=== PATIENT | female | born 1985 | race Caucasian/White ===

== ENCOUNTER 2018-07-03 21:15 | Emergency (ER) | payer BC, OTHER ==
[~2018-07-03] VITALS: Ht 167.6 cm; Wt 113.4 kg
[~2018-07-03 21:15] MED LIST: BUTA1CAP39 PO; HYOS0.1217 PO; IBP800T PO; PNT40TEC PO
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
--- OUTSIDE RECORDS SUMMARY | 2018-07-03 21:21 | XMS REPORT ---
Author Author CAMILO SALDANA Organization [facility] Address [address] [place] [address] Care Team Providers Care Credit Advisor Name Role Phone CAMILO SALDANA Unavailable PROBLEMS Type Condition ICD9-CM Code AWM63-JV Code Onset Dates Condition Status SNOMED Code Problem Right carpal tunnel syndrome G56.01 Active 645495846281586 Problem Migraine without aura and without status migrainosus, not intractable G43.009 Active 236376602 Problem Morbid (severe) obesity due to excess calories E66.01 Active 862763560 Problem Carpal tunnel syndrome, bilateral G56.03 Active 25278116491487778 Problem Severe single current episode of major depressive disorder, 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 Active 92041437 ALLERGIES No Information ENCOUNTERS Encounter Location Date Diagnosis [facility] [address] [address]- [address] December, Right carpal tunnel syndrome G56.01 [place] [address] [address]- 9745 December, Severe single current episode of major depressive disorder, 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 ; Carpal tunnel syndrome, bilateral G56.03 and Elevated blood pressure reading R03.0 [place] [address] [address] [address]- [address]43 December, Carpal tunnel syndrome, bilateral G56.03 [facility] [address] [id number] December, Dental caries K02.9 [facility] [address] 6[address]- 9677 Nov, Carpal tunnel syndrome, bilateral G56.03 [facility] [address] [id number] Nov, Dental examination Z01.20 [place] [address] [place] [id number] [place] [address] 38689- 7899 Nov, Carpal tunnel syndrome, bilateral G56.03 ; Severe single current episode of major depressive disorder, 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 ; Morbid (severe) obesity due to excess calories E66.01 and Migraine without aura and without status migrainosus, not intractable G43.[address] [address]- [address] Oct, Nausea R11.0 ; Epigastric abdominal pain R10.13 and BMI 40.0 -44.9, adult Z68.[address] 9[address]70- 1368 Oct, [address] 37677- 9447 Aug, Severe single current episode of major depressive disorder, 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 ; BMI 40.0-44.9, adult Z68.41 ; Fatigue, unspecified type R53.83 ; Other viral agents as the cause of diseases classified elsewhere B97.89 and Acute upper respiratory infection, unspecified J06.9 [place] [id number] [place] [address] 32973- 6897 Jul, BMI 40.0-44.9, adult Z68.41 and Severe single current episode of major depressive disorder, 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 [place] [address] [place] [id number] [place] [address] 03295- 7419 Jun, Severe single current episode of major depressive disorder, 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 [place] [address] [place] [id number] [place] [address] 99899- 4295 May, Severe single current episode of major depressive disorder, 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 and Cough R05 [place] [address] [place] [id number] [place] [address] 98760- 3308 Apr, Severe single current episode of major depressive disorder, 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 [place] [address] [place] [id number] [place] [address] 90609- 4423 Mar, Severe single current episode of major depressive disorder, 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 [place] [address] [place] [id number] [place] [address] 83104- 8193 Feb, Encounter for routine adult health examination with abnormal findings Z00.01 ; Morbid (severe) obesity due to excess calories E66.01 and Exposure to hepatitis C Z20.5 [place] [address] [address]- 4141 Feb, Encounter for routine adult health examination with abnormal findings Z00.01 ; Morbid (severe) obesity due to excess calories E66.01 ; Exposure to hepatitis C Z20.5 and Moderate episode of recurrent major depressive disorder F33.1 [place] [address] 28680- 6152 Jan, Acute seasonal allergic rhinitis due to pollen J30.1 [place] [address] 24183- 3492 Sep, Acute suppurative otitis media of right ear without spontaneous rupture of tympanic membrane, recurrence not specified H66.001 and Acute pain of right shoulder M25.511 [facility] [address] [address] -[address]39 Jul, Vaginal discharge N89.8 and Vaginal candidiasis B37.3 [place] [address] 72241- 8233 May, Eustachian tube dysfunction, left H69.[address] 26164- 3730 09 Apr, 2016 Bronchitis J40 and Tobacco abuse counseling Z71.6 [place] [address] [address]27- 0404 Oct, URI (upper respiratory infection) J06.9 ; HTN (hypertension ) I10 and Obesity E66.9 [facility] [address] [address] Oct, Pharyngitis J02.9 and Sore throat J02.9 [facility] [address] [place] [address] 64906- 7337 May, Cough due to bronchospasm J98.01 [facility] [address] [place] [id number] [place] [address]37- 1975 May, Pneumonia J18.9 and Elevated blood pressure (not hypertension) R03.0 [facility] [address] [place] [address] 60495- 7562 Nov, [facility] [address] [place] [id number] [place] [address] 70057- 7860 Nov, [facility] [address] [place] [id number] [place] [address] 71056- 6906 Sep, [facility] [address] [place] [id number] [place] [address] 17907- 0339 Sep, [facility] [address] [place] [address] 49397- 3117 Sep, [facility] [address] [place] [address] 74244- 0411 Sep, [facility] [address] [address]- 7391 Aug, [facility] [address] [address]- 6508 Aug, [facility] [address] [place] [address] 93535- 4884 Aug, [facility] [address] [place] [address] 90074- 1474 Aug, [facility] [address] [address]- 2282 Aug, [facility] [address] [facility] [id number] [place] [address]- 6414 Aug, [facility] [address] [id number] [place] [address]- 1316 Aug, [facility] [place] [facility] [address] [id number] [place] [address]- 3406 Aug, [facility] [place] [facility] [address] [id number] [place] [address]- 4719 Aug, [facility] [place] [facility] [address] [id number] [place] [address]- 9129 Aug, [facility] [place] [facility] [address] [id number] [place] [address] Jul, [facility] [place] [facility] [address] [id number] [place] [address]- 0912 Jul, [facility] [place] [facility] [address] [id number] [place] [address]- 2759 Jul, [facility] [address] [id number] [place] [address]- 3007 Jul, [facility] [place] [facility] [address] [id number] [place] [address]- 5817 Jul, [facility] [place] [facility] [address] [id number] [place] [address]- 1146 Jul, [facility] [place] [facility] [address] [id number] [place] [address]- 9868 Jul, [facility] [place] [facility] [address] [id number] [place] [address]- 2601 Jul, [facility] [place] [facility] [address] [id number] [place] [address]8 Jul, [facility] [place] [facility] [address] [id number] [place] [address]- 4296 05 Jul, 2014 [facility] [place] [facility] [address] [id number] [place] [address]- 3067 Jul, [facility] [place] [facility] [address] [id number] [place] [address]- 1952 May, [facility] [place] [facility] [address] [id number] [place] [address]- 4574 May, [facility] [place] [facility] [address] [id number] [place] [address]- 2284 Apr, [facility] [place] [facility] [address] [id number] [place] [address]- 7703 Apr, [facility] [place] [facility] [address] [id number] [place] [address]- 4900 Jan, [facility] [place] [facility] [address] [id number] [place] [address]- 5641 Jan, [facility] [place] [facility] [address] [facility] [id number] [place] [address]- 9907 Oct, [facility] [place] [facility] [address] [id number] [address]- 9356 Oct, [facility] [place] [facility] [address] [id number] [place] [address]- 5956 Sep, [facility] [place] [facility] [address] [id number] [address]- 9502 Sep, [facility] [place] [facility] [address] [id number] [address]- 7704 Sep, [facility] [place] [facility] [address] [id number] [address]- 7312 Sep, [facility] [place] [facility] [address] [id number] [place] [address]- 0310 Sep, [facility] [place] [facility] [address] [id number] [address]321 Sep, [facility] [place] [facility] [address] [id number] [place] 5848 Aug, [facility] [place] [facility] [address] [address]- 2127 Aug, [facility] [address] [address]- 1044 Jun, [facility] [address] 6[address] Jun, [facility] [address] [place] [id number] [place] [address] 25994- 2991 Jun, [facility] [address] [place] [id number] [place] [address] 737455- 7502 Jun, [facility] [address] [place] [id number] [place] [address] 09465- 4152 Jun, [facility] [address] [place] [id number] [place] [address] 576046- 7192 Jun, [facility] [address] [place] [id number] [place] [address] 30486- 3939 May, [facility] [address] [address] May, [facility] [address] [place] [id number] [place] [address] 532424- 4895 Mar, [facility] [id number] [address] Mar, [facility] [id number] [address] December, [facility] [id number] [address] December, IMMUNIZATIONS No Known Immunizations SOCIAL HISTORY Never Assessed REASON FOR VISIT Bilat CTS-unable to afford surgery or EMG-interested in injection, Consult Camilo Salazar RT(R) PLAN OF CARE Activity Details Follow Up prn Reason: VITAL SIGNS MEDICATIONS Unknown Medications RESULTS No Results PROCEDURES Procedure Date Ordered Result Body Site DRAIN/INJECT, JOINT/BURSA December 31, 2017 DEPO MEDROL 40 MG/ML December 31, 2017 INSTRUCTIONS MEDICATIONS ADMINISTERED No Known Medications MEDICAL [...]
--- OUTSIDE RECORDS SUMMARY | 2018-07-03 21:21 | XMS REPORT ---
Author Author DANK YOST [facility] Address [address] [place] [address] Care Team Providers Care Insurance Loss Adjuster Name Role Phone DANK YOST Unavailable PROBLEMS Type Condition ICD9-CM Code CGP52-MC Code Onset Dates Condition Status SNOMED Code Problem Right carpal tunnel syndrome G56.01 Active 324334130758659 Problem Migraine without aura and without status migrainosus, not intractable G43.009 Active 045665144 Problem Morbid (severe) obesity due to excess calories E66.01 Active 771771101 Problem Carpal tunnel syndrome, bilateral G56.03 Active [id number] Problem Severe single current episode of major depressive disorder, 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 Active 55760898 ALLERGIES No Known Allergies ENCOUNTERS Encounter Location Date Diagnosis [place] [address] [address] May, Vesicular rash R23.8 ; Lower abdominal pain R10.30 and History of abdominal surgery Z98.890 [place] [address] [place] [id number] [place] [address] December, Right carpal tunnel syndrome G56.01 [place] [address] [address] December, Severe single current episode of major depressive disorder, 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 ; Carpal tunnel syndrome, bilateral G56.03 and Elevated blood pressure reading R03.0 [place] [address] [address] 15 Dec, 2017 Carpal tunnel syndrome, bilateral G56.03 [facility] [address] [place] [id number] [place] [address] [id number] 04 Dec, 2017 Dental caries K02.9 [place] [address] [place] [address] Nov, Carpal tunnel syndrome, bilateral G56.03 [facility] [id number] [place] [id number] 16 Nov, 2017 Dental examination Z01.20 [facility] [address] [place] [id number] [place] [address]- [address]67 09 Nov, 2017 Carpal tunnel syndrome, bilateral G56.03 ; Severe single current episode of major depressive disorder, 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 ; Morbid (severe) obesity due to excess calories E66.01 and Migraine without aura and without status migrainosus, not intractable G43.009 [place] [address] [place] [id number] [place] [address]- [address] Oct, Nausea R11.0 ; Epigastric abdominal pain R10.13 and BMI 40.0 -44.9, adult Z68.41 [place] [address] [place] [id number] [place] [address] Oct, [place] [address] [place] [id number] [place] [address] 47[address]- [address] Aug, Severe single current episode of major depressive disorder, 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 ; BMI 40.0-44.9, adult Z68.41 ; Fatigue, unspecified type R53.83 ; Other viral agents as the cause of diseases classified elsewhere B97.89 and Acute upper respiratory infection, unspecified J06.9 [place] [address] [place] [address] 47472- 5173 Jul, BMI 40.0-44.9, adult Z68.41 and Severe single current episode of major depressive disorder, 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 [place] [address] [place] [id number] [place] [address]- [address] Jun, Severe single current episode of major depressive disorder, 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 [place] [address] [place] [id number] [place] [address]- [address] May, Severe single current episode of major depressive disorder, 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 and Cough R05 [facility] [address] [address] Apr, Severe single current episode of major depressive disorder, 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 [facility] [address] [address] Mar, Severe single current episode of major depressive disorder, 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 [place] [address] [place] [id number] [place] [address]1560- [address]016 Feb, Encounter for routine adult health examination with abnormal findings Z00.01 ; Morbid (severe) obesity due to excess calories E66.01 and Exposure to hepatitis C Z20.5 [place] [address] [place] [id number] [place] [address]- [address] Feb, Encounter for routine adult health examination with abnormal findings Z00.01 ; Morbid (severe) obesity due to excess calories E66.01 ; Exposure to hepatitis C Z20.5 and Moderate episode of recurrent major depressive disorder F33.1 [place] [address] [place] [id number] [place] [address]- [address] Jan, Acute seasonal allergic rhinitis due to pollen J30.1 [facility] [address] [place] [id number] [place] [address]- [address] Sep, Acute suppurative otitis media of right ear without spontaneous rupture of tympanic membrane, recurrence not specified H66.001 and Acute pain of right shoulder M25.511 [facility] [address] [place] [address] Jul, Vaginal discharge N89.8 and Vaginal candidiasis B37.3 [facility] [address] [place] [id number] [place] [address] 79787- 5031 May, Eustachian tube dysfunction, left H69.82 [facility] [address] [place] [id number] [place] [address]01- 1605 09 Apr, 2016 Bronchitis J40 and Tobacco abuse counseling Z71.6 [facility] [address] [address] Oct, URI (upper respiratory infection) J06.9 ; HTN (hypertension ) I10 and Obesity E66.9 [facility] [address] [address] Oct, Pharyngitis J02.9 and Sore throat J02.9 [facility] [address] [place] [id number] [place] [address] 72040- 9816 May, Cough due to bronchospasm J98.01 [facility] [address] [place] [id number] [place] [address] 62385- 2959 May, Pneumonia J18.9 and Elevated blood pressure (not hypertension) R03.0 [facility] [address] [place] [id number] [place] [address] 88135- 6162 Nov, [facility] [address] [place] [id number] [place] [address] 15902- 3412 Nov, [facility] [address] [place] [id number] [place] [address] 16667- 5286 Sep, [facility] [address] [place] [id number] [place] [address] 07911- 6319 Sep, [facility] [id number] [place] [address] 50488- 3363 Sep, [facility] [address] [place] [id number] [place] [address] 25705- 4033 Sep, [facility] [address] [place] [id number] [place] [address] 63361- 6118 Aug, [facility] [address] [place] [id number] [place] [address] 44910- 5820 Aug, [facility] [address] [place] [id number] [place] [address] 61307- 3362 Aug, [facility] [address] [place] [address]- [address] Aug, [facility] [address] [id number] [place] [address]- 58[address] Aug, [facility] [place] [facility] [address] [id number] [place] [address]- 1632 Aug, [facility] [place] [facility] [address] [id number] [place] [address]- 3286 Aug, [facility] [place] [facility] [address] [id number] [place] [address]- 8299 Aug, [facility] [place] [facility] [address] [id number] [place] [address]- 8139 Aug, [facility] [place] [facility] [address] [id number] [place] [address]- 4792 Aug, [facility] [address] [id number] [place] [address]- 2242 Jul, [facility] [place] [facility] [address] [id number] [place] [address]- 287[address] 29 Jul, 2014 [facility] [place] [facility] [address] [id number] [place] [address]- 0700 Jul, [facility] [place] [facility] [address] [id number] [place] [address]- 2470 Jul, [facility] [place] [facility] [address] [id number] [place] [address]- 6928 16 Jul, 2014 [facility] [place] [facility] [address] [id number] [place] [address]- 3870 11 Jul, 2014 [facility] [place] [facility] [address] [id number] [place] [address]- 6968 Jul, [facility] [place] [facility] [address] [id number] [place] [address]- 8225 Jul, [facility] [place] [facility] [address] [id number] [place] [address]- 6016 Jul, [facility] [place] [facility] [address] [id number] [place] [address]- 7350 Jul, [facility] [place] [facility] [address] [id number] [place] [address]- 0030 Jul, [facility] [place] [facility] [address] [id number] [place] [address]- 2467 May, [facility] [place] [facility] [address] [id number] [place] [address]- 4969 May, [facility] [place] [facility] [address] [id number] [place] [address]- 4941 Apr, [facility] [place] [facility] [address] [id number] [place] [address]- 2391 Apr, [facility] [place] [facility] [address] [facility] [id number] [place] [address]- 3567 Jan, [facility] [place] [facility] [address] [facility] [id number] [place] [address]- 4224 Jan, [facility] [place] [facility] [address] [facility] [id number] [place] [address]- 4198 Oct, [facility] [place] [facility] [address] [facility] [id number] [place] [address]- 6027 Oct, [facility] [place] [facility] [address] [facility] [id number] [place] [address]- 1199 Sep, [facility] [place] [facility] [address] [facility] [id number] [address]- 6439 Sep, [facility] [place] [facility] [address] [facility] [id number] [place] [address]- 3150 Sep, [facility] [place] [facility] [address] [id number] [place] [address]- 4147 Sep, [facility] [place] [facility] [address] [facility] [id number] [address]- 3768 Sep, [facility] [place] [facility] [address] [facility] [id number] [address]- 8[address] Sep, [facility] [address] [place] [address] [id number] [address]- [address] Aug, [facility] [address] [address]- 74[address] Aug, [facility] [address] [address]- 2045 Jun, [facility] [address] [address]- 5630 Jun, [facility] [address] [address]- 7062 Jun, [facility] [address] [address]- 5919 Jun, [facility] [address] [address]- 5143 Jun, [facility] [address] [address]- 0331 Jun, [facility] [address] [address]- 6[address] May, [facility] [address] [address]- 8416 May, [facility] [address] [place] [address] [id number] [address]- 3141 Mar, [facility] [address] [place] [address] [id number] [address]- 9066 Mar, [facility] [address] [place] [address] [id number] [address]- 0[address] December, [facility] [address] [place] [address] [id number] [address]- 7917 December, IMMUNIZATIONS No Known Immunizations SOCIAL HISTORY Never Assessed REASON FOR VISIT rash on left thumb x 1 month -- carmella golden , patient states she is having some stomach pain ,nausea x the last 2 weeks PLAN OF CARE Activity Details Follow Up Needs to re establish care with new provider Reason: VITAL SIGNS Height 67 in 2018-05-13 Weight 282.0 lbs 2018-05-13 Temperature 98.0 degrees Fahrenheit 2018-05-13 Heart Rate 80 bpm 2018-05-13 Respiratory Rate 22 2018-05-13 BMI 44.16 kg/m2 2018-05-13 Blood pressure systolic 138 mmHg 2018-05-13 Blood pressure diastolic 86 mmHg 2018-05-13 MEDICATIONS Medication Instructions Dosage Frequency Start Date End Date Duration Status Gabapentin 300 MG Orally Once a day 1 capsule before bedtime 24h Nov, 90 days Not-Taking Seroquel 100 mg Orally Once a day 1 tablet 24h Aug, 30 Not- Taking RESULTS Name Result Date Reference Range TEST, URINE (IN HOUSE) 2018-05-13 RESULTS negatiev Lot # [id number] Control + Exp date 11/2019 Xray : KUB (IN HOUSE) 2018-05-13 PROCEDURES Procedure Date Ordered Result Body Site URINE TEST May 13, 2018 X-RAY EXAM ABDOMEN 1 VIEW May 13, 2018 INSTRUCTIONS MEDICATIONS ADMINISTERED No Known Medications MEDICAL [...]
--- OUTSIDE RECORDS SUMMARY | 2018-07-03 21:22 | XMS REPORT ---
Author Author MARJ DARBY Organization [facility] Address [address] [place] [address] Care Team Providers Care Certified Novell Engineer Name Role Phone WILNER, MARJ Unavailable PROBLEMS Type Condition ICD9-CM Code DZI50-MN Code Onset Dates Condition Status SNOMED Code Problem Right carpal tunnel syndrome G56.01 Active 856308139567077 Problem Migraine without aura and without status migrainosus, not intractable G43.009 Active 602134623 Problem Morbid (severe) obesity due to excess calories E66.01 Active 884804297 Problem Carpal tunnel syndrome, bilateral G56.03 Active [id number] Problem Severe single current episode of major depressive disorder, 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 Active 90191241 ALLERGIES No Known Allergies ENCOUNTERS Encounter Location Date Diagnosis [facility] [address] [address] December, Right carpal tunnel syndrome G56.01 [facility] [address] [address] December, Severe single current episode of major depressive disorder, 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 ; Carpal tunnel syndrome, bilateral G56.03 and Elevated blood pressure reading R03.0 [facility] [address] [address] December, Carpal tunnel syndrome, bilateral G56.03 [facility] [address] [id number] December, Dental caries K02.9 [facility] [address] [address] Nov, Carpal tunnel syndrome, bilateral G56.03 [facility] [address] [id number] Nov, Dental examination Z01.[address] [place] [address]11- 95[address] Nov, Carpal tunnel syndrome, bilateral G56.03 ; Severe single current episode of major depressive disorder, 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 ; Morbid (severe) obesity due to excess calories E66.01 and Migraine without aura and without status migrainosus, not intractable G43.009 [place] [id number] [place] [address]14- 3681 Oct, Nausea R11.0 ; Epigastric abdominal pain R10.13 and BMI 40.0 -44.9, adult Z68.41 [place] [id number] [place] [address] 10045- 0843 Oct, [place] [id number] [place] [address] 12090- 1679 Aug, Severe single current episode of major depressive disorder, 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 ; BMI 40.0-44.9, adult Z68.41 ; Fatigue, unspecified type R53.83 ; Other viral agents as the cause of diseases classified elsewhere B97.89 and Acute upper respiratory infection, unspecified J06.[address] [place] [address] 94705- 9739 Jul, BMI 40.0-44.9, adult Z68.41 and Severe single current episode of major depressive disorder, 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 [place] [id number] [place] [address] 74437- 7894 Jun, Severe single current episode of major depressive disorder, 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 [place] [id number] [place] [address] 43436- 7866 May, Severe single current episode of major depressive disorder, 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 and Cough R05 [place] [id number] [place] [address] 49029- 4175 Apr, Severe single current episode of major depressive disorder, 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 [facility] [address] [id number] [place] [address] 99370- 0318 Mar, Severe single current episode of major depressive disorder, 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 [place] [address] [address]- [address] Feb, Encounter for routine adult health examination with abnormal findings Z00.01 ; Morbid (severe) obesity due to excess calories E66.01 and Exposure to hepatitis C Z20.5 [place] [address] [address]- [address] Feb, Encounter for routine adult health examination with abnormal findings Z00.01 ; Morbid (severe) obesity due to excess calories E66.01 ; Exposure to hepatitis C Z20.5 and Moderate episode of recurrent major depressive disorder F33.1 [place] [address] 8[address]46- 8048 Jan, Acute seasonal allergic rhinitis due to pollen J30.1 [place] [address] 65797- 9879 Sep, Acute suppurative otitis media of right ear without spontaneous rupture of tympanic membrane, recurrence not specified H66.001 and Acute pain of right shoulder M25.511 [facility] [id number] [place] [address] 91076 -0175 Jul, Vaginal discharge N89.8 and Vaginal candidiasis B37.3 [place] [address] 33515- 1717 May, Eustachian tube dysfunction, left H69.82 [place] [address] 49735- 9104 Apr, Bronchitis J40 and Tobacco abuse counseling Z71.6 [place] [address] 45318- 8290 Oct, URI (upper respiratory infection) J06.9 ; HTN (hypertension ) I10 and Obesity E66.9 [facility] [address] [address] Oct, Pharyngitis J02.9 and Sore throat J02.9 [facility] [id number] [place] [address] 34726- 9686 May, Cough due to bronchospasm J98.01 [facility] [id number] [place] [address] 90992- 0356 May, Pneumonia J18.9 and Elevated blood pressure (not hypertension) R03.0 [facility] [id number] [place] [address] 32117- 5746 Nov, [facility] [id number] [place] [address] 19958- 3174 Nov, [facility] [id number] [place] [address] 35398- 6889 Sep, [facility] [id number] [place] [address] 92724- 4314 Sep, [facility] [id number] [place] [address] 03230- 9037 Sep, [facility] [id number] [place] [address] 07065- 6833 Sep, [facility] [id number] [place] [address] 34750- 8083 Aug, [facility] [id number] [place] [address] 48994- 5228 Aug, [facility] [id number] [place] [address] 17629- 8629 Aug, [facility] [id number] [place] [address] 22907- 2678 Aug, [facility] [id number] [place] [address] 36099- 0299 Aug, [facility] [address] [id number] [place] [address]- 4424 Aug, [facility] [place] [facility] [address] [id number] [place] [address]- 6663 Aug, [facility] [place] [facility] [address] [id number] [place] [address]- 0745 Aug, [facility] [place] [facility] [address] [id number] [place] [address]- 6779 Aug, [facility] [address] [id number] [place] [address]- 0649 Aug, [facility] [place] [facility] [address] [id number] [place] [address]- 4007 Jul, [facility] [place] [facility] [address] [id number] [place] [address]- 0207 Jul, [facility] [address] [id number] [place] [address]- 0229 Jul, [facility] [place] [facility] [address] [id number] [place] [address]- 0708 Jul, [facility] [place] [facility] [address] [id number] [place] [address]- 2359 Jul, [facility] [place] [facility] [address] [id number] [place] [address]- 2327 Jul, [facility] [place] [facility] [address] [id number] [place] [address]- 3325 Jul, [facility] [place] [facility] [address] [id number] [place] [address]- 7660 Jul, [facility] [place] [facility] [address] [id number] [place] [address]- 5677 Jul, [facility] [place] [facility] [address] [id number] [place] [address]- 9805 05 Jul, 2014 [facility] [place] [facility] [address] [id number], [place] [address]- 2546 Jul, [facility] [place] [facility] [address] [id number] [place] [address]- 8782 May, [facility] [place] [facility] [address] [id number], [place] [address]- 1236 May, [facility] [place] [facility] [address] [facility] [id number] [place] [address]- 0164 Apr, [facility] [place] [facility] [address] [id number], [place] [address]- 5203 Apr, [facility] [place] [facility] [address] [id number] [place] [address]- 8759 Jan, [facility] [place] [facility] [address] [facility] [id number], [place] [address]- 1239 Jan, [facility] [place] [facility] [address] [facility] [id number], [place] [address]- 6380 Oct, [facility] [place] [facility] [address] [facility] [id number], [place] [address]- 6266 Oct, [facility] [place] [facility] [address] [facility] [id number], [place] [address]- 1714 Sep, [facility] [place] [facility] [address] [facility] [id number], [place] [address]- 9692 Sep, [facility] [place] [facility] [address] [facility] [id number], [place] [address]- 9720 Sep, [facility] [place] [facility] [address] [facility] [id number], [place] [address]- 6709 Sep, [facility] [place] [facility] [address] [facility] [id number] [place] [address]- 6816 Sep, [facility] [place] [facility] [address] [facility] [id number][place] 6911 Sep, [facility] [place] [facility] [address] [facility] [id number], [place] [address]- 5389 Aug, [facility] [place] [facility] [address], [place] [address]- 0036 Aug, [facility] [address], [place] [address]- 2596 Jun, [facility] [address], [place] [address]- 2446 Jun, [facility] [address] [place] [address] 59808- 6726 Jun, [facility] [address], [place] [address]- 5934 Jun, [facility] [address] [place] [address] 25466- 7162 Jun, [facility] [address] 7911 Jun, [facility] [address], [place] [address]- 8023 May, [facility] [address], [place] [address]- 4290 May, [facility] [address], [place] [address]- 2357 Mar, [facility] [address], [place] [address]- 8112 Mar, [facility] [address], [place] [address]- 8598 December, [facility] [address] [id number], [place] [address]- 5475 December, IMMUNIZATIONS No Known Immunizations SOCIAL HISTORY Never Assessed REASON FOR VISIT DAVID PLAN OF CARE Activity Details Follow Up 1 Week Reason:1.5 hours Multi TE VITAL SIGNS Height 67 in 2017-11-23 Blood pressure systolic 118 mmHg 2017-11-23 Blood pressure diastolic 102...120 mmHg 2017-11-23 MEDICATIONS Medication Instructions Dosage Frequency Start Date End Date Duration Status Amoxicillin 500 MG Orally every 8 hrs 1 capsule 8h Nov, Nov, 10 day(s) Active Gabapentin 300 MG Orally Once a day 1 capsule before bedtime 24h Nov, 30 day(s) Active Jasper 5-325 MG Orally every 6 hrs 1 tablet as needed 6h Nov, Active Venlafaxine HCl ER 150 MG Orally Once a day 1 capsule with food 24h 30 Active Seroquel 100 mg Orally Once a day 1 tablet 24h Aug, 30 Active Topiramate 25 MG Orally Twice a day 1 tablet in the evening for 1 week then one twice daily 12h Nov, 90 days Active RESULTS No Results PROCEDURES Procedure Date Ordered Result Body Site COMP ORAL EVALUATION - NEW/EST PT November 23, 2017 INTRAORL - CMPL SERIES CODE [id number] November 23, 2017 Billing Notes on claim November 23, 2017 INSTRUCTIONS MEDICATIONS ADMINISTERED No Known Medications [...]
--- OUTSIDE RECORDS SUMMARY | 2018-07-03 21:22 | XMS REPORT ---
Author Author PURDYMANSI LittleELE Organization [facility] Address [address] [place] [address] Care Team Providers Care Edge Baster Name Role Phone DARWIN PURDY Unavailable PROBLEMS Type Condition ICD9-CM Code FDG76-WT Code Onset Dates Condition Status SNOMED Code Problem Right carpal tunnel syndrome G56.01 Active 678056556633443 Problem Migraine without aura and without status migrainosus, not intractable G43.009 Active 911858232 Problem Morbid (severe) obesity due to excess calories E66.01 Active 996509302 Problem Carpal tunnel syndrome, bilateral G56.03 Active [id number] Problem Severe single current episode of major depressive disorder, 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 Active 30164087 ALLERGIES No Known Allergies ENCOUNTERS Encounter Location Date Diagnosis [facility] [address] [address] December, Right carpal tunnel syndrome G56.01 [facility] [address] [address]- 3418 December, Severe single current episode of major depressive disorder, 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 ; Carpal tunnel syndrome, bilateral G56.03 and Elevated blood pressure reading R03.0 [facility] [address] [address]- 2720 December, Carpal tunnel syndrome, bilateral G56.03 [facility] [address] [id number] December, Dental caries K02.9 [facility] [address] 72742- 1841 Nov, Carpal tunnel syndrome, bilateral G56.03 [facility] [address] [id number] Nov, Dental examination Z01.20 [place] [address] 34683- 7849 Nov, Carpal tunnel syndrome, bilateral G56.03 ; Severe single current episode of major depressive disorder, 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 ; Morbid (severe) obesity due to excess calories E66.01 and Migraine without aura and without status migrainosus, not intractable G43.009 [place] [address] 92538- 0729 Oct, Nausea R11.0 ; Epigastric abdominal pain R10.13 and BMI 40.0 -44.9, adult Z68.[address] [address]- 5165 Oct, [address] 80644- 0643 Aug, Severe single current episode of major depressive disorder, 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 ; BMI 40.0-44.9, adult Z68.41 ; Fatigue, unspecified type R53.83 ; Other viral agents as the cause of diseases classified elsewhere B97.89 and Acute upper respiratory infection, unspecified J06.[address] 26823- 7997 Jul, BMI 40.0-44.9, adult Z68.41 and Severe single current episode of major depressive disorder, 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 [place] [address] [place] [id number] [place] [address] 21381- 3531 Jun, Severe single current episode of major depressive disorder, 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 [place] [address] 81289- 5873 May, Severe single current episode of major depressive disorder, 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 and Cough R05 [place] [address] [place] [id number] [place] [address] 73007- 5254 Apr, Severe single current episode of major depressive disorder, 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 [place] [address] [place] [id number] [place] [address] 03255- 5459 Mar, Severe single current episode of major depressive disorder, 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 [place] [address] [place] [id number] [place] [address] 36012- 9389 Feb, Encounter for routine adult health examination with abnormal findings Z00.01 ; Morbid (severe) obesity due to excess calories E66.01 and Exposure to hepatitis C Z20.5 [place] [address] 8[address]43- 4193 Feb, Encounter for routine adult health examination with abnormal findings Z00.01 ; Morbid (severe) obesity due to excess calories E66.01 ; Exposure to hepatitis C Z20.5 and Moderate episode of recurrent major depressive disorder F33.1 [place] [address] 46150- 7970 Jan, Acute seasonal allergic rhinitis due to pollen J30.1 [place] [address] 35067- 9305 Sep, Acute suppurative otitis media of right ear without spontaneous rupture of tympanic membrane, recurrence not specified H66.001 and Acute pain of right shoulder M25.511 [facility] [address] [address] -[address]180 Jul, Vaginal discharge N89.8 and Vaginal candidiasis B37.3 [place] [address] 54314- 7279 May, Eustachian tube dysfunction, left H69.82 [place] [address] 80792- 3385 09 Apr, 2016 Bronchitis J40 and Tobacco abuse counseling Z71.6 [place] [address] 60948- 0644 Oct, URI (upper respiratory infection) J06.9 ; HTN (hypertension ) I10 and Obesity E66.9 [facility] [address] [address] Oct, Pharyngitis J02.9 and Sore throat J02.9 [facility] [address] [place] [id number] [place] [address] 77683- 0177 May, Cough due to bronchospasm J98.01 [facility] [address] [place] [address] [id number] [place] [address] 01165- 1319 May, Pneumonia J18.9 and Elevated blood pressure (not hypertension) R03.0 [facility] [address] [place] [address] [id number] [place] [address] 70868- 7310 Nov, [facility] [address] [id number] [place] [address] 72203- 1608 Nov, [facility] [address] [id number] [place] [address] 95356- 7251 Sep, [facility] [address] [id number] [place] [address] 60355- 9316 Sep, [facility] [address] [id number] [place] [address] 93752- 9075 Sep, [facility] [address] [id number] [place] [address] 64384- 3321 Sep, [facility] [address] [place] [address] 23342- 2817 Aug, [facility] [address] [place] [address] 72045- 0578 Aug, [facility] [address] [id number] [place] [address] 99875- 1417 Aug, [facility] [address] [place] [id number] [place] [address] 80069- 8344 Aug, [facility] [address] [place] [address] 25844- 1436 Aug, [facility] [address] [id number] [place] [address]- 9176 Aug, [facility] [place] [facility] [address] [id number] [place] [address]- 7231 Aug, [facility] [place] [facility] [address] [id number] [place] [address]- 9806 Aug, [facility] [place] [facility] [address] [id number] [place] [address]- 2051 Aug, [facility] [place] [facility] [address] [id number] [place] [address]- 8044 Aug, [facility] [place] [facility] [address] [id number] [place] [address]- 1471 Jul, [facility] [place] [facility] [address] [id number] [place] [address]- 6590 Jul, [facility] [place] [facility] [address] [id number] [place] [address]- 9125 Jul, [facility] [place] [facility] [address] [id number] [place] [address]- 6215 Jul, [facility] [place] [facility] [address] [id number] [place] [address]- 2602 Jul, [facility] [place] [facility] [address] [id number] [place] [address]- 5371 Jul, [facility] [place] [facility] [address] [id number] [place] [address]- 0395 Jul, [facility] [place] [facility] [address] [id number] [place] [address]- 3957 Jul, [facility] [place] [facility] [address] [id number] [place] [address] Jul, [facility] [place] [facility] [address] [id number] [place] [address]- 1376 05 Jul, 2014 [facility] [place] [facility] [address] [id number] [place] [address] Jul, [facility] [place] [facility] [address] [id number] [place] [address]- 4130 May, [facility] [place] [facility] [address] [id number] [place] [address]- 3972 May, [facility] [place] [facility] [address] [id number] [place] [address]- 4455 Apr, [facility] [place] [facility] [address] [id number] [place] [address]- 4303 Apr, [facility] [place] [facility] [address] [id number] [place] [address]- 3960 Jan, [facility] [place] [facility] [address] [id number] [place] [address]- 3254 Jan, [facility] [place] [facility] [id number] [place] [address]- 1702 Oct, [facility] [place] [facility] [address] [id number] [place] [address]- 2635 Oct, [facility] [place] [facility] [address] [id number] [place] [address]- 5636 Sep, [facility] [place] [facility] [address] [facility] [id number] [place] [address]- 8443 Sep, [facility] [place] [facility] [address] [id number] [place] [address]- 8294 Sep, [facility] [place] [facility] [address] [id number] [place] [address]- 2310 Sep, [facility] [place] [facility] [address] [id number] [place] [address]- 6093 Sep, [facility] [place] [facility] [address] [facility] [id number] [place] 3851 Sep, [facility] [place] [facility] [address] [facility] [id number] [place] [address]- 4664 Aug, [facility] [place] [facility] [address] [address]- 6331 Aug, [facility] [address] [address]- 0390 Jun, [facility] [address] 3385 Jun, [facility] [address] [address]- 5851 Jun, [facility] [address] [address] Jun, [facility], [place] [id number] [address] Jun, [facility], [place] [id number] [address] Jun, [facility], [place] [id number] [address] May, [facility], [place] [id number] [address] May, [facility], [place] [id number] [address] Mar, [facility], [place] [id number] [address] Mar, [facility], [place] [id number] [address] December, [facility], [place] [id number] [address] December, IMMUNIZATIONS No Known Immunizations SOCIAL HISTORY Never Assessed REASON FOR VISIT Depression f/uMarilynn aguero ma PLAN OF CARE Activity Details Follow Up 3 Months, prn Reason:CHM/Depression VITAL SIGNS Height 67 in 2017-12-25 Weight 288 lbs 2017-12-25 Temperature 97.8 degrees Fahrenheit 2017-12-25 Heart Rate 98 bpm 2017-12-25 Respiratory Rate 20 2017-12-25 BMI 45.10 kg/m2 2017-12-25 Blood pressure systolic 145 mmHg 2017-12-25 Blood pressure diastolic 90 mmHg 2017-12-25 MEDICATIONS Medication Instructions Dosage Frequency Start Date End Date Duration Status Seroquel 100 mg Orally Once a day 1 tablet 24h Aug, 30 Active PredniSONE 20 mg Orally Once a day 1 tablet 24h Nov, December, 5 days Active Gabapentin 300 MG Orally Once a day 1 capsule before bedtime 24h Nov, 90 days Active RESULTS No Results PROCEDURES No Known [...]
--- OUTSIDE RECORDS SUMMARY | 2018-07-03 21:22 | XMS REPORT ---
Author Author MANSI PURDYELE Organization [facility] Address [address] [place] [address] Care Team Providers Care Engineering Technical Analyst Name Role Phone DARWIN PURDY Unavailable PROBLEMS Type Condition ICD9-CM Code UYO43-KV Code Onset Dates Condition Status SNOMED Code Problem Right carpal tunnel syndrome G56.01 Active 226342679711492 Problem Migraine without aura and without status migrainosus, not intractable G43.009 Active 579567287 Problem Morbid (severe) obesity due to excess calories E66.01 Active 105407663 Problem Carpal tunnel syndrome, bilateral G56.03 Active [id number] Problem Severe single current episode of major depressive disorder, 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 Active 26289447 ALLERGIES No Information ENCOUNTERS Encounter Location Date Diagnosis [facility] [address] [address] December, Right carpal tunnel syndrome G56.01 [place] [id number] [address] December, Severe single current episode of major depressive disorder, 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 ; Carpal tunnel syndrome, bilateral G56.03 and Elevated blood pressure reading R03.0 [place] [address] [address]- [address] December, Carpal tunnel syndrome, bilateral G56.03 [facility] [address] [id number] December, Dental caries K02.9 [facility] [address] [address] Nov, Carpal tunnel syndrome, bilateral G56.03 [facility] [address] [id number] Nov, Dental examination Z01.20 [place] [address] [place] [id number] [place] [address] 53362- 8602 Nov, Carpal tunnel syndrome, bilateral G56.03 ; Severe single current episode of major depressive disorder, 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 ; Morbid (severe) obesity due to excess calories E66.01 and Migraine without aura and without status migrainosus, not intractable G43.[address] [address]- [address] Oct, Nausea R11.0 ; Epigastric abdominal pain R10.13 and BMI 40.0 -44.9, adult Z68.[address] [address]- 8761 Oct, [address] [address]- 4[address] Aug, Severe single current episode of major depressive disorder, 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 ; BMI 40.0-44.9, adult Z68.41 ; Fatigue, unspecified type R53.83 ; Other viral agents as the cause of diseases classified elsewhere B97.89 and Acute upper respiratory infection, unspecified J06.9 [place] [id number] [place] [address] 57697- 9947 Jul, BMI 40.0-44.9, adult Z68.41 and Severe single current episode of major depressive disorder, 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 [place] [address] [place] [id number] [place] [address] 61002- 5656 Jun, Severe single current episode of major depressive disorder, 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 [place] [address] [place] [id number] [place] [address] 66320- 3902 May, Severe single current episode of major depressive disorder, 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 and Cough R05 [place] [address] [place] [id number] [place] [address] 89495- 8799 Apr, Severe single current episode of major depressive disorder, 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 [place] [address] [place] [id number] [place] [address] 99524- 9885 Mar, Severe single current episode of major depressive disorder, 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 [place] [address] [place] [id number] [place] [address] 15114- 3834 Feb, Encounter for routine adult health examination with abnormal findings Z00.01 ; Morbid (severe) obesity due to excess calories E66.01 and Exposure to hepatitis C Z20.5 [place] [address] 40[address]- 0867 Feb, Encounter for routine adult health examination with abnormal findings Z00.01 ; Morbid (severe) obesity due to excess calories E66.01 ; Exposure to hepatitis C Z20.5 and Moderate episode of recurrent major depressive disorder F33.1 [place] [address] [address]- 1552 Jan, Acute seasonal allergic rhinitis due to pollen J30.1 [place] [address] 9[address]12- 4[address] Sep, Acute suppurative otitis media of right ear without spontaneous rupture of tympanic membrane, recurrence not specified H66.001 and Acute pain of right shoulder M25.511 [facility] [address] [address] Jul, Vaginal discharge N89.8 and Vaginal candidiasis B37.3 [place] [address] 86590- 3478 May, Eustachian tube dysfunction, left H69.[address] 61410- 94[address] 09 Apr, 2016 Bronchitis J40 and Tobacco abuse counseling Z71.6 [place] [address] 31939- 2442 Oct, URI (upper respiratory infection) J06.9 ; HTN (hypertension ) I10 and Obesity E66.9 [facility] [address] [address] Oct, Pharyngitis J02.9 and Sore throat J02.9 [facility] [id number] [place] [address] 66975- 8585 May, Cough due to bronchospasm J98.01 [facility] [address] [place] [id number] [place] [address] 12559- 0345 May, Pneumonia J18.9 and Elevated blood pressure (not hypertension) R03.0 [facility] [id number] [place] [address] 05941- 1697 Nov, [facility] [address] [place] [id number] [place] [address] 63291- 9440 Nov, [facility] [address] [place] [id number] [place] [address] 05767- 0017 Sep, [facility] [address] [place] [id number] [place] [address] 66769- 5312 Sep, [facility] [id number] [place] [address] 75650- 8180 Sep, [facility] [id number] [place] [address] 15165- 3237 Sep, [facility] [address], [place] [address]- 4180 Aug, [facility] [address], [place] [address]- 2065 Aug, [facility] [id number] [place] [address] 57988- 4505 Aug, [facility] [id number] [place] [address] 75605- 7981 Aug, [facility] [address], [place] [address]- 1868 Aug, [facility] [address] [facility] [id number] [place] [address]- 4233 Aug, [facility] [address] [id number] [place] [address]- 8662 Aug, [facility] [place] [facility] [address] [id number] [place] [address]- 2916 Aug, [facility] [place] [facility] [address] [id number] [place] [address]- 6280 Aug, [facility] [place] [facility] [address] [id number] [place] [address]- 0726 Aug, [facility] [place] [facility] [address] [id number] [place] [address] Jul, [facility] [place] [facility] [address] [id number] [place] [address]- 5778 Jul, [facility] [place] [facility] [address] [id number] [place] [address]- 8523 Jul, [facility] [address] [id number] [place] [address]- 4507 Jul, [facility] [place] [facility] [address] [id number] [place] [address]- 9444 Jul, [facility] [place] [facility] [address] [id number] [place] [address]- 7314 Jul, [facility] [place] [facility] [address] [id number] [place] [address]- 0147 Jul, [facility] [place] [facility] [address] [id number] [place] [address]- 1191 Jul, [facility] [place] [facility] [address] [id number] [place] [address] Jul, [facility] [place] [facility] [address] [id number] [place] [address]- 7226 05 Jul, 2014 [facility] [place] [facility] [address] [id number] [place] [address]- 2732 Jul, [facility] [place] [facility] [address] [id number] [place] [address]- 5016 May, [facility] [place] [facility] [address] [id number] [place] [address]- 4818 May, [facility] [place] [facility] [address] [id number] [place] [address]- 8372 Apr, [facility] [place] [facility] [address] [id number] [place] [address]- 0407 Apr, [facility] [place] [facility] [address] [id number] [place] [address]- 4213 Jan, [facility] [place] [facility] [address] [id number] [place] [address]- 8968 Jan, [facility] [place] [facility] [address] [facility] [id number] [place] [address]- 9187 Oct, [facility] [place] [facility] [address] [id number], [place] [address]- 2043 Oct, [facility] [place] [facility] [address] [id number] [place] [address]- 7810 Sep, [facility] [place] [facility] [address] [id number], [place] [address]- 9882 Sep, [facility] [place] [facility] [address] [id number], [place] [address]- 2836 Sep, [facility] [place] [facility] [address] [id number], [place] [address]- 9710 Sep, [facility] [place] [facility] [address] [id number] [place] [address]- 5955 Sep, [facility] [place] [facility] [address] [id number] 7803 Sep, [facility] [place] [facility] [address] [id number] [place] [address]44 Aug, [facility] [place] [facility] [address], [place] [address]- 4266 Aug, [facility] [address], [place] [address]- 9676 Jun, [facility] [address], [place] [address]- 2486 Jun, [facility] [address], [place] [address]- 3524 Jun, [facility] [address], [place] [address]- 0854 Jun, [facility] [address], [place] [address]- 7899 Jun, [facility] [address], [place] [address]- 9976 Jun, [facility] [address], [place] [address]- 9826 May, [facility] [address], [place] [address]- 2085 May, [facility] [address], [place] [address]- 1206 Mar, [facility] [address], [place] [address]- 5296 Mar, [facility] [address], [place] [address]- 3586 December, [facility] [address] [place] [id number], [place] [address]- 4416 December, IMMUNIZATIONS No Known Immunizations SOCIAL HISTORY Never Assessed REASON FOR VISIT med refill PLAN OF CARE VITAL SIGNS MEDICATIONS Medication Instructions Dosage Frequency Start Date End Date Duration Status PredniSONE 20 mg Orally Once a day [...]
--- OUTSIDE RECORDS SUMMARY | 2018-07-03 21:22 | XMS REPORT ---
Author Author MARJ DARBY Organization [facility] Address [address] [place] [address] Care Team Providers Care Bingo Caller Name Role Phone WILNER, MARJ Unavailable PROBLEMS Type Condition ICD9-CM Code LSJ39-FL Code Onset Dates Condition Status SNOMED Code Problem Right carpal tunnel syndrome G56.01 Active 982359763900928 Problem Migraine without aura and without status migrainosus, not intractable G43.009 Active 255221436 Problem Morbid (severe) obesity due to excess calories E66.01 Active 257581563 Problem Carpal tunnel syndrome, bilateral G56.03 Active [id number] Problem Severe single current episode of major depressive disorder, 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 Active 09218764 ALLERGIES No Known Allergies ENCOUNTERS Encounter Location Date Diagnosis [facility] [address] [address] December, Right carpal tunnel syndrome G56.01 [facility] [address] [address]- 4502 December, Severe single current episode of major depressive disorder, 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 ; Carpal tunnel syndrome, bilateral G56.03 and Elevated blood pressure reading R03.0 [facility] [address] [address]- 2933 December, Carpal tunnel syndrome, bilateral G56.03 [facility] [address] [id number] December, Dental caries K02.9 [facility] [address] 92672- 5923 Nov, Carpal tunnel syndrome, bilateral G56.03 [facility] [address] [id number] Nov, Dental examination Z01.20 [address] [place] [address] 94866- 9377 Nov, Carpal tunnel syndrome, bilateral G56.03 ; Severe single current episode of major depressive disorder, 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 ; Morbid (severe) obesity due to excess calories E66.01 and Migraine without aura and without status migrainosus, not intractable G43.009 [place] [id number] [place] [address] 67378- 8708 Oct, Nausea R11.0 ; Epigastric abdominal pain R10.13 and BMI 40.0 -44.9, adult Z68.41 [place] [id number] [place] [address] 00095- 2554 Oct, [place] [id number] [place] [address] 97347- 8758 Aug, Severe single current episode of major depressive disorder, 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 ; BMI 40.0-44.9, adult Z68.41 ; Fatigue, unspecified type R53.83 ; Other viral agents as the cause of diseases classified elsewhere B97.89 and Acute upper respiratory infection, unspecified J06.9 [address] [place] [address] 41577- 0960 Jul, BMI 40.0-44.9, adult Z68.41 and Severe single current episode of major depressive disorder, 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 [place] [id number] [place] [address] 40441- 4372 Jun, Severe single current episode of major depressive disorder, 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 [place] [id number] [place] [address] 67006- 3107 May, Severe single current episode of major depressive disorder, 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 and Cough R05 [place] [id number] [place] [address] 01629- 2428 Apr, Severe single current episode of major depressive disorder, 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 [facility] [address] [place] [id number] [place] [address] 90695- 5191 Mar, Severe single current episode of major depressive disorder, 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 [place] [address] 98045- 6550 Feb, Encounter for routine adult health examination with abnormal findings Z00.01 ; Morbid (severe) obesity due to excess calories E66.01 and Exposure to hepatitis C Z20.5 [place] [address] 38428- 7240 Feb, Encounter for routine adult health examination with abnormal findings Z00.01 ; Morbid (severe) obesity due to excess calories E66.01 ; Exposure to hepatitis C Z20.5 and Moderate episode of recurrent major depressive disorder F33.1 [place] [address] 94825- 6223 Jan, Acute seasonal allergic rhinitis due to pollen J30.1 [place] [address] [address]37- 7166 Sep, Acute suppurative otitis media of right ear without spontaneous rupture of tympanic membrane, recurrence not specified H66.001 and Acute pain of right shoulder M25.511 [facility] [address] [place] [id number] [place] [address] 73039 -4501 Jul, Vaginal discharge N89.8 and Vaginal candidiasis B37.3 [place] [address] 71985- 5712 May, Eustachian tube dysfunction, left H69.82 [place] [address] 67512- 4285 Apr, Bronchitis J40 and Tobacco abuse counseling Z71.6 [place] [address] 17579- 2564 Oct, URI (upper respiratory infection) J06.9 ; HTN (hypertension ) I10 and Obesity E66.[address] [facility] [address], [place] [address] Oct, Pharyngitis J02.9 and Sore throat J02.9 [facility] [address] [place] [id number] [place] [address] 17515- 7966 May, Cough due to bronchospasm J98.01 [facility] [address] [place] [id number] [place] [address] 07148- 3664 May, Pneumonia J18.9 and Elevated blood pressure (not hypertension) R03.0 [facility] [address] [place] [id number] [place] [address] 17839- 1756 Nov, [facility] [address] [place] [id number] [place] [address] 00551- 6650 Nov, [facility] [address] [place] [address] [id number] [place] [address] 03901- 3195 Sep, [facility] [address] [place] [id number] [place] [address] 24598- 8422 Sep, [facility] [address] [place] [address] [id number] [place] [address] 66732- 8469 Sep, [facility] [address] [place] [id number] [place] [address] 30531- 3539 Sep, [facility] [address] [place] [id number] [place] [address] 80007- 5304 Aug, [facility] [address] [place] [id number] [place] [address] 97374- 9875 Aug, [facility] [address] [place] [id number] [place] [address] 40312- 6947 Aug, [facility] [address] [place] [id number] [place] [address] 53668- 6874 Aug, [facility] [address] [place] [id number] [place] [address] 25396- 9013 Aug, [facility] [address] [id number] [place] [address]- 1852 Aug, [facility] [place] [facility] [address] [id number] [place] [address]- 0757 Aug, [facility] [place] [facility] [address] [id number] [place] [address]- 8403 Aug, [facility] [place] [facility] [address] [id number] [place] [address]- 7624 Aug, [facility] [address] [id number] [place] [address]- 9108 Aug, [facility] [place] [facility] [address] [id number] [place] [address]- 8578 Jul, [facility] [place] [facility] [address] [id number] [place] [address]- 9511 Jul, [facility] [address] [id number] [place] [address]- 2075 Jul, [facility] [place] [facility] [address] [id number] [place] [address]- 2183 Jul, [facility] [place] [facility] [address] [id number] [place] [address]- 1153 Jul, [facility] [place] [facility] [address] [id number] [place] [address]- 0557 Jul, [facility] [place] [facility] [address] [id number] [place] [address]- 8786 Jul, [facility] [place] [facility] [address] [id number] [place] [address]- 1404 Jul, [facility] [place] [facility] [address] [id number] [place] [address]- 2530 Jul, [facility] [place] [facility] [address] [id number] [place] [address]- 4074 05 Jul, 2014 [facility] [place] [facility] [address] [id number], [place] [address]- 2546 Jul, [facility] [place] [facility] [address] [id number] [place] [address]- 6555 May, [facility] [place] [facility] [address] [id number], [place] [address]- 2886 May, [facility] [place] [facility] [address] [facility] [id number] [place] [address]- 5342 Apr, [facility] [place] [facility] [address] [id number], [place] [address]- 2678 Apr, [facility] [place] [facility] [address] [id number] [place] [address]- 4013 Jan, [facility] [place] [facility] [address] [facility] [id number], [place] [address]- 1869 Jan, [facility] [place] [facility] [address] [facility] [id number], [place] [address]- 8711 Oct, [facility] [place] [facility] [address] [facility] [id number], [place] [address]- 7627 Oct, [facility] [place] [facility] [address] [facility] [id number], [place] [address]- 9407 Sep, [facility] [place] [facility] [address] [facility] [id number], [place] [address]- 0245 Sep, [facility] [place] [facility] [address] [facility] [id number], [place] [address]- 5850 Sep, [facility] [place] [facility] [address] [facility] [id number], [place] [address]- 2867 Sep, [facility] [place] [facility] [address] [facility] [id number] [place] [address]- 0592 Sep, [facility] [place] [facility] [address] [facility] [id number]- 9562 Sep, [facility] [place] [facility] [address] [facility] [id number], [place] [address]- 5429 Aug, [facility] [place] [facility] [address] [facility] [id number], [place] [address]- 4717 Aug, [facility] [address], [place] [address]- 2673 Jun, [facility] [address] [facility] [id number]- 3482 Jun, [facility] [address] [facility] [id number], [place] [address]- 5623 Jun, [facility] [address] [facility] [id number], [place] [address]- 3881 Jun, [facility] [address], [place] [address]- 8981 Jun, [facility] [address] 7524 Jun, [facility] [address], [place] [address]- 5378 May, [facility] [address], [place] [address]- 1201 May, [facility] [address], [place] [address]- 8920 Mar, [facility] [address], [place] [address]- 4437 Mar, [facility] [address], [place] [address]- 9451 December, [facility] [id number] [address]762 December, IMMUNIZATIONS No Known Immunizations SOCIAL HISTORY Never Assessed REASON FOR VISIT 08/11 TE PLAN OF CARE Activity Details Follow Up prn Reason:TE and/or restorative VITAL SIGNS Blood pressure systolic 150 mmHg 2017-12-11 Blood pressure diastolic 89 mmHg 2017-12-11 MEDICATIONS Medication Instructions Dosage Frequency Start Date End Date Duration Status Topiramate 25 MG Orally Twice a day 1 tablet in the evening for 1 week then one twice daily 12h 09 Nov, 2018 90 days Active Venlafaxine HCl ER 150 MG Orally Once a day 1 capsule with food 24h 30 Active Gabapentin 300 MG Orally Once a day 1 capsule before bedtime 24h Nov, 30 day(s) Active Seroquel 100 mg Orally Once a day 1 tablet 24h Aug, 30 Active [place] 5-325 MG Orally every 6 hrs 1 tablet as needed 6h December,December 4 days Active Amoxicillin 500 MG Orally every 8 hrs 1 capsule 8h December, December, 5 days Active RESULTS No Results PROCEDURES Procedure Date Ordered Result Body Site EXTRAC ERUPTED TOOTH/EXPOSED ROOT December 11, 2017 SURG REMOVAL ERUPTED TOOTH December 11, 2017 SURG REMOVAL ERUPTED TOOTH December 11, 2017 SURG REMOVAL ERUPTED TOOTH December 11, 2017 INSTRUCTIONS MEDICATIONS ADMINISTERED No Known Medications [...]
--- OUTSIDE RECORDS SUMMARY | 2018-07-03 21:23 | XMS REPORT ---
Author Author JERZY Fontana Organization [facility] Address [address] [place] [address] Care Team Providers Care Child Welfare Manager Name Role Phone JERZY Fontana Unavailable PROBLEMS Type Condition ICD9-CM Code SNF80-PG Code Onset Dates Condition Status SNOMED Code Problem Right carpal tunnel syndrome G56.01 Active 326781019646528 Problem Migraine without aura and without status migrainosus, not intractable G43.009 Active 545800542 Problem Morbid (severe) obesity due to excess calories E66.01 Active 564563721 Problem Carpal tunnel syndrome, bilateral G56.03 Active [id number] Problem Severe single current episode of major depressive disorder, 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 Active 77025406 ALLERGIES No Known Allergies ENCOUNTERS Encounter Location Date Diagnosis [facility] [address] [address] December, Right carpal tunnel syndrome G56.01 [facility] [address] [address] December, Severe single current episode of major depressive disorder, 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 ; Carpal tunnel syndrome, bilateral G56.03 and Elevated blood pressure reading R03.0 [facility] [address] [address] December, Carpal tunnel syndrome, bilateral G56.03 [facility] [address] [id number] December, Dental caries K02.9 [facility] [address] [address] Nov, Carpal tunnel syndrome, bilateral G56.03 [facility] [address] [id number] Nov, Dental examination Z01.20 [place] [id number] [place] [address] 55704- 9578 Nov, Carpal tunnel syndrome, bilateral G56.03 ; Severe single current episode of major depressive disorder, 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 ; Morbid (severe) obesity due to excess calories E66.01 and Migraine without aura and without status migrainosus, not intractable G43.[address] [address] Oct, Nausea R11.0 ; Epigastric abdominal pain R10.13 and BMI 40.0 -44.9, adult Z68.41 [place] [id number] [place] [address] 32459- 6804 Oct, [address] [address] Aug, Severe single current episode of major depressive disorder, 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 ; BMI 40.0-44.9, adult Z68.41 ; Fatigue, unspecified type R53.83 ; Other viral agents as the cause of diseases classified elsewhere B97.89 and Acute upper respiratory infection, unspecified J06.[address] [place] [address] 78075- 1128 Jul, BMI 40.0-44.9, adult Z68.41 and Severe single current episode of major depressive disorder, 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 [place] [id number] [place] [address] 63056- 4754 Jun, Severe single current episode of major depressive disorder, 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 [place] [id number] [place] [address] 04590- 7662 May, Severe single current episode of major depressive disorder, 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 and Cough R05 [place] [id number] [place] [address] 97724- 9272 Apr, Severe single current episode of major depressive disorder, 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 [place] [address] [place] [id number] [place] [address] 23562- 6104 Mar, Severe single current episode of major depressive disorder, 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 [place] [address] [id number] [place] [address] 81716- 5722 Feb, Encounter for routine adult health examination with abnormal findings Z00.01 ; Morbid (severe) obesity due to excess calories E66.01 and Exposure to hepatitis C Z20.5 [place] [address] [address] Feb, Encounter for routine adult health examination with abnormal findings Z00.01 ; Morbid (severe) obesity due to excess calories E66.01 ; Exposure to hepatitis C Z20.5 and Moderate episode of recurrent major depressive disorder F33.1 [place] [address] [address]- 9[address] Jan, Acute seasonal allergic rhinitis due to pollen J30.1 [place] [address] [address]86- [address] Sep, Acute suppurative otitis media of right ear without spontaneous rupture of tympanic membrane, recurrence not specified H66.001 and Acute pain of right shoulder M25.511 [facility] [id number] [place] [address] 42024 -3221 Jul, Vaginal discharge N89.8 and Vaginal candidiasis B37.3 [place] [address] 88847- 3125 May, Eustachian tube dysfunction, left H69.[address] [address]- 7[address] 09 Apr, 2016 Bronchitis J40 and Tobacco abuse counseling Z71.[address] 88[address]- 9[address] Oct, URI (upper respiratory infection) J06.9 ; HTN (hypertension ) I10 and Obesity E66.9 [facility] [address] [place] [address]37 -6074 Oct, Pharyngitis J02.9 and Sore throat J02.9 [facility] [id number] [place] [address] 11461- 3151 May, Cough due to bronchospasm J98.01 [facility] [id number] [place] [address] 17965- 5161 May, Pneumonia J18.9 and Elevated blood pressure (not hypertension) R03.0 [facility] [id number] [place] [address] 54570- 8072 Nov, [facility] [id number] [place] [address] 70321- 5438 Nov, [facility] [id number] [place] [address] 05149- 6438 Sep, [facility] [id number] [place] [address] 00353- 6852 Sep, [facility] [id number] [place] [address] 87819- 8658 Sep, [facility] [id number] [place] [address] 78915- 5547 Sep, [facility] [id number] [place] [address] 72816- 2561 Aug, [facility] [id number] [place] [address] 03039- 8756 Aug, [facility] [id number] [place] [address] 97949- 2291 Aug, [facility] [id number] [place] [address] 43113- 1613 Aug, [facility] [id number] [place] [address] 74660- 2811 Aug, [facility] [place] [facility] [address] [id number] [place] [address]- 3673 Aug, [facility] [place] [facility] [address] [id number] [place] [address]- 7391 Aug, [facility] [place] [facility] [address] [id number] [place] [address]- 4174 Aug, [facility] [place] [facility] [address] [id number] [place] [address]- 2674 Aug, [facility] [place] [facility] [address] [id number] [place] [address]- 9358 Aug, [facility] [place] [facility] [address] [id number] [place] [address]- 1529 Jul, [facility] [place] [facility] [address] [id number] [place] [address]- 3220 Jul, [facility] [place] [facility] [address] [id number] [place] [address]- 8390 Jul, [facility] [place] [facility] [address] [id number] [place] [address]- 9970 Jul, [facility] [place] [facility] [address] [id number] [place] [address]- 8182 Jul, [facility] [place] [facility] [address] [id number] [place] [address]- 3398 Jul, [facility] [place] [facility] [address] [id number], [place] [address]- 4520 Jul, [facility] [place] [facility] [address] [id number] [place] [address]- 1071 Jul, [facility] [place] [facility] [address] [id number] [place] [address]- 5841 Jul, [facility] [place] [facility] [address] [id number] [place] [address] 05 Jul, 2014 [facility] [place] [facility] [address] [id number], [place] [address]- 0123 Jul, [facility] [place] [facility] [address] [facility] [id number] [place] [address]- 0616 May, [facility] [place] [facility] [address] [facility] [id number], [place] [address]- 6418 May, [facility] [place] [facility] [address] [facility] [id number] [place] [address]- 9577 Apr, [facility] [place] [facility] [address] [facility] [id number] [place] [address]- 8072 Apr, [facility] [place] [facility] [address] [place] [id number] [place] [address]- 6097 Jan, [facility] [place] [facility] [address] [place] [address] [id number] [place] [address]- 9516 Jan, [facility] [place] [facility] [address] [address]- 6589 Oct, [facility] [place] [facility] [address] [place] [id number], [place] [address]- 9985 Oct, [facility] [place] [facility] [address] [place] [address]- 9761 Sep, [facility] [place] [facility] [address], [place] [address]- 2660 Sep, [facility] [place] [facility] [address] [place] [address]- 2948 Sep, [facility] [place] [facility] [address] [facility] [id number], [place] [address]- 4846 Sep, [facility] [place] [facility] [address] [facility] [id number] [place] [address]- 7003 Sep, [facility] [place] [facility] [address] [facility] [id number] 8091 Sep, [facility] [place] [facility] [address] [place] [address] [id number] [address]- 9104 Aug, [facility] [address] [id number], [place] [address]- 3009 Aug, [facility] [address], [place] [address]- 4527 Jun, [facility] [address], [place] [address]- 5951 Jun, [facility] [address], [place] [address]- 5878 Jun, [facility] [address] 9618 Jun, [facility] [address]65[address], [place] [address]- 0615 Jun, [facility] [address]65[address], [place] [address]- 7660 Jun, [facility] [address], [place] [address]- 8156 May, [facility] [address], [place] [address]- 6147 May, [facility] [address] [place] [address] [id number] 6594 Mar, [facility] [address] [id number], [place] [address]- 0381 Mar, [facility] [address], [place] [address]- 0434 December, [facility] [address] [place] [id number] [address] December, IMMUNIZATIONS No Known Immunizations SOCIAL HISTORY Never Assessed REASON FOR VISIT upset stomach, nausea every day, intermittent vomiting/diarrhea x2 weeks---- DBennettRN, bilateral hand numbness, radiates up arms, feels "are on fire" x several months, worsened over last 2 weeks PLAN OF CARE Activity Details Follow Up prn Reason: VITAL SIGNS Height 67 in 2017-10-28 Weight 260 lbs 2017-10-28 Temperature 98.5 degrees Fahrenheit 2017-10-28 Heart Rate 60 bpm 2017-10-28 Respiratory Rate 20 2017-10-28 BMI 40.72 kg/m2 2017-10-28 Blood pressure systolic 124 mmHg 2017-10-28 Blood pressure diastolic 90 mmHg 2017-10-28 MEDICATIONS Medication Instructions Dosage Frequency Start Date End Date Duration Status Promethazine HCl 25 MG Orally every 12 hrs PRN nausea 1 tablet Oct, Nov, 30 day(s) Active Venlafaxine HCl ER 150 MG Orally Once a day 1 capsule with food 24h Aug 30 day(s) Active Ranitidine HCl 150 MG Orally Once a day 1 tablet at bedtime 24h Oct, Active Seroquel 100 mg Orally Once a day 1 tablet 24h Aug, 30 day(s) Active RESULTS Name Result Date Reference Range H PYLORI (IN HOUSE) 2017-10-28 H. PYLORI negative Control + Lot # [id number] Exp date 12/2017 TEST, URINE (IN HOUSE) 2017-10-28 RESULTS negative Lot # [id number] Control + Exp date 06/09/19 PROCEDURES Procedure Date Ordered Result Body Site URINE TEST October 28, 2017 IMMUNOASSAY,INFECTIOUS AGENT October 28, 2017 INSTRUCTIONS MEDICATIONS ADMINISTERED No Known Medications [...]
--- OUTSIDE RECORDS SUMMARY | 2018-07-03 21:23 | XMS REPORT ---
Author Author PURDYMANSI LittleELE Organization [facility] Address [address] [place] [address] Care Team Providers Care Circular Shear Operator Name Role Phone DARWIN PURDY Unavailable PROBLEMS Type Condition ICD9-CM Code EOL97-HM Code Onset Dates Condition Status SNOMED Code Problem Right carpal tunnel syndrome G56.01 Active 854934685577288 Problem Migraine without aura and without status migrainosus, not intractable G43.009 Active 068079752 Problem Morbid (severe) obesity due to excess calories E66.01 Active 505940857 Problem Carpal tunnel syndrome, bilateral G56.03 Active 20623809676550553 Problem Severe single current episode of major depressive disorder, 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 Active 77486451 ALLERGIES No Known Allergies ENCOUNTERS Encounter Location Date Diagnosis [facility] [address] [address] December, Right carpal tunnel syndrome G56.01 [facility] [address] [address]- 0252 December, Severe single current episode of major depressive disorder, 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 ; Carpal tunnel syndrome, bilateral G56.03 and Elevated blood pressure reading R03.0 [facility] [address] [address]- [address]29 December, Carpal tunnel syndrome, bilateral G56.03 [facility] [address] [id number] December, Dental caries K02.9 [facility] [address] 78727- 7400 Nov, Carpal tunnel syndrome, bilateral G56.03 [facility] [address] [id number] Nov, Dental examination Z01.20 [place] [address] [address]47- 1167 Nov, Carpal tunnel syndrome, bilateral G56.03 ; Severe single current episode of major depressive disorder, 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 ; Morbid (severe) obesity due to excess calories E66.01 and Migraine without aura and without status migrainosus, not intractable G43.009 [place] [address] 83[address]- 0264 Oct, Nausea R11.0 ; Epigastric abdominal pain R10.13 and BMI 40.0 -44.9, adult Z68.[address] [address]- [address]194 Oct, [address] [address]- 8550 Aug, Severe single current episode of major depressive disorder, 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 ; BMI 40.0-44.9, adult Z68.41 ; Fatigue, unspecified type R53.83 ; Other viral agents as the cause of diseases classified elsewhere B97.89 and Acute upper respiratory infection, unspecified J06.[address] 85862- 7874 Jul, BMI 40.0-44.9, adult Z68.41 and Severe single current episode of major depressive disorder, 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 [place] [address] [place] [id number] [place] [address] 13416- 6676 Jun, Severe single current episode of major depressive disorder, 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 [place] [address] 85940- 7986 May, Severe single current episode of major depressive disorder, 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 and Cough R05 [place] [address] [place] [id number] [place] [address] 59286- 9400 Apr, Severe single current episode of major depressive disorder, 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 [place] [address] [place] [address] [id number] [place] [address] 10500- 0277 Mar, Severe single current episode of major depressive disorder, 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 [place] [address] [place] [id number] [place] [address] 56053- 8379 Feb, Encounter for routine adult health examination with abnormal findings Z00.01 ; Morbid (severe) obesity due to excess calories E66.01 and Exposure to hepatitis C Z20.5 [place] [address] [address]27- 9046 Feb, Encounter for routine adult health examination with abnormal findings Z00.01 ; Morbid (severe) obesity due to excess calories E66.01 ; Exposure to hepatitis C Z20.5 and Moderate episode of recurrent major depressive disorder F33.1 [place] [address] 82528- 5071 Jan, Acute seasonal allergic rhinitis due to pollen J30.1 [place] [address] 33203- 1339 Sep, Acute suppurative otitis media of right ear without spontaneous rupture of tympanic membrane, recurrence not specified H66.001 and Acute pain of right shoulder M25.511 [facility] [address] [address] -[address]36 Jul, Vaginal discharge N89.8 and Vaginal candidiasis B37.3 [place] [address] 38362- 8775 May, Eustachian tube dysfunction, left H69.82 [place] [address] 91902- 7100 09 Apr, 2016 Bronchitis J40 and Tobacco abuse counseling Z71.6 [place] [address] 01721- 8970 Oct, URI (upper respiratory infection) J06.9 ; HTN (hypertension ) I10 and Obesity E66.9 [facility] [address] [address] Oct, Pharyngitis J02.9 and Sore throat J02.9 [facility] [address] [id number] [place] [address] 34001- 8401 May, Cough due to bronchospasm J98.01 [facility] [id number] [place] [address] 58681- 9198 May, Pneumonia J18.9 and Elevated blood pressure (not hypertension) R03.0 [facility] [address] [id number] [place] [address] 58590- 3129 Nov, [facility] [id number] [place] [address] 25393- 9949 Nov, [facility] [id number] [place] [address] 71979- 3131 Sep, [facility] [id number] [place] [address] 30407- 2115 Sep, [facility] [id number] [place] [address] 49391- 7156 Sep, [facility] [id number] [place] [address] 60758- 6326 Sep, [facility] [address] [place] [address] 66342- 4604 Aug, [facility] [address] [place] [address] 52052- 5256 Aug, [facility] [id number] [place] [address] 87808- 8659 Aug, [facility] [id number] [place] [address] 80751- 4909 Aug, [facility] [address] [place] [address] 94251- 3714 Aug, [facility] [address] [id number] [place] [address]- 6328 Aug, [facility] [place] [facility] [address] [id number] [place] [address]- 1626 Aug, [facility] [place] [facility] [address] [id number] [place] [address]- 9326 Aug, [facility] [place] [facility] [address] [id number] [place] [address]- 5999 Aug, [facility] [place] [facility] [address] [id number] [place] [address]- 6683 Aug, [facility] [place] [facility] [address] [id number] [place] [address]- 4876 Jul, [facility] [place] [facility] [address] [id number] [place] [address]- 3742 Jul, [facility] [place] [facility] [address] [id number] [place] [address]- 9837 Jul, [facility] [place] [facility] [address] [id number] [place] [address]- 9642 Jul, [facility] [place] [facility] [address] [id number] [place] [address]- 4799 Jul, [facility] [place] [facility] [address] [id number] [place] [address]- 9901 Jul, [facility] [place] [facility] [address] [id number] [place] [address]- 3541 Jul, [facility] [place] [facility] [address] [id number] [place] [address]- 4093 Jul, [facility] [place] [facility] [address] [id number] [place] [address]96 Jul, [facility] [place] [facility] [address] [id number] [place] [address]- 8256 05 Jul, 2014 [facility] [place] [facility] [address] [id number] [place] 4553 Jul, [facility] [place] [facility] [address] [id number] [place] [address]- 3464 May, [facility] [place] [facility] [address] [id number] [place] [address]- 5836 May, [facility] [place] [facility] [address] [id number] [place] [address]- 2416 Apr, [facility] [place] [facility] [address] [id number] [place] [address]- 9682 Apr, [facility] [place] [facility] [address] [id number] [place] [address]- 5084 Jan, [facility] [place] [facility] [address] [id number] [place] [address]- 3930 Jan, [facility] [place] [facility] [address] [id number] [place] [address]- 5589 Oct, [facility] [place] [facility] [address] [id number] [place] [address]- 5323 Oct, [facility] [place] [facility] [address] [id number] [place] [address]- 8544 Sep, [facility] [place] [facility] [address] [facility] [id number] [place] [address]- 1119 Sep, [facility] [place] [facility] [address] [id number], [place] [address]- 8915 Sep, [facility] [place] [facility] [address] [id number], [place] [address]- 1885 Sep, [facility] [place] [facility] [address] [id number] [place] [address]- 4996 Sep, [facility] [place] [facility] [address] [facility] [id number]- 3031 Sep, [facility] [place] [facility] [address] [facility] [id number] [place] [address]- 2267 Aug, [facility] [place] [facility] [address], [place] [address]- 2546 Aug, [facility] [address], [place] [address]- 5136 Jun, [facility] [address], [place] [address]- 2546 Jun, [facility] [address] [address]- 1406 Jun, [facility] [address] [id number] [address]- 0136 Jun, [facility] [id number] [place] [address] 77706- 2426 Jun, [facility] [address] [address]- 1976 Jun, [facility] [id number] [place] [address] 12181- 9696 May, [facility] [address], [place] [address]- 7550 May, [facility] [address], [place] [address]- 7616 Mar, [facility] [address], [place] [address]- 5226 Mar, [facility] [address] [address]- 2566 December, [facility] [address] [id number] [address]- 4996 December, IMMUNIZATIONS No Known Immunizations SOCIAL HISTORY Never Assessed REASON FOR VISIT Numbness to hands bilaterally. WILLY Mensah, Headache x 4 days, sensitivity to light and small amount of nausea. PLAN OF CARE Activity Details Follow Up 3 Months Reason:CHM/depression VITAL SIGNS Height 67 in 2017-11-16 Weight 287.3 lbs 2017-11-16 Temperature 98.9 degrees Fahrenheit 2017-11-16 Heart Rate 91 bpm 2017-11-16 Respiratory Rate 20 2017-11-16 BMI 44.99 kg/m2 2017-11-16 Blood pressure systolic 120 mmHg 2017-11-16 Blood pressure diastolic 68 mmHg 2017-11-16 MEDICATIONS Medication Instructions Dosage Frequency Start Date End Date Duration Status Gabapentin 300 MG Orally Once a day 1 capsule before bedtime 24h Nov, 30 day(s) Active Venlafaxine HCl ER 150 MG Orally Once a day 1 capsule with food 24h 30 Active PredniSONE 20 mg Orally Once a day 1 tablet 24h Nov, Nov, 05 days Active Seroquel 100 mg Orally Once a [...]
--- OUTSIDE RECORDS SUMMARY | 2018-07-03 21:23 | XMS REPORT ---
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 Name Role Phone DARWIN PURDY Unavailable PROBLEMS Type Condition ICD9-CM Code LOH99-YO Code Onset Dates Condition Status SNOMED Code Problem Right carpal tunnel syndrome G56.01 Active 115853212449488 Problem Migraine without aura and without status migrainosus, not intractable G43.009 Active 840239604 Problem Morbid (severe) obesity due to excess calories E66.01 Active 627887000 Problem Carpal tunnel syndrome, bilateral G56.03 Active 31420653327475398 Problem Severe single current episode of major depressive disorder, 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 Active 25014614 ALLERGIES No Information ENCOUNTERS Encounter Location Date Diagnosis [facility] [address] [address] December, Right carpal tunnel syndrome G56.01 [place] [address] [address] December, Severe single current episode of major depressive disorder, 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 ; Carpal tunnel syndrome, bilateral G56.03 and Elevated blood pressure reading R03.0 [place] [address] [address] December, Carpal tunnel syndrome, bilateral G56.03 [facility] [address] [id number] December, Dental caries K02.9 [facility] [address] [address]- [address] Nov, Carpal tunnel syndrome, bilateral G56.03 [facility] [address] [id number] Nov, Dental examination Z01.20 [place] [address] [place] [id number] [place] [address] 9[address]61- 4805 Nov, Carpal tunnel syndrome, bilateral G56.03 ; Severe single current episode of major depressive disorder, 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 ; Morbid (severe) obesity due to excess calories E66.01 and Migraine without aura and without status migrainosus, not intractable G43.[address] [address]- [address] Oct, Nausea R11.0 ; Epigastric abdominal pain R10.13 and BMI 40.0 -44.9, adult Z68.[address] [address]- [address]75 Oct, [address] [address]- [address] Aug, Severe single current episode of major depressive disorder, 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 ; BMI 40.0-44.9, adult Z68.41 ; Fatigue, unspecified type R53.83 ; Other viral agents as the cause of diseases classified elsewhere B97.89 and Acute upper respiratory infection, unspecified J06.9 [place] [id number] [place] [address]2856- 0460 Jul, BMI 40.0-44.9, adult Z68.41 and Severe single current episode of major depressive disorder, 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 [place] [address] [place] [id number] [place] [address] 10689- 4374 Jun, Severe single current episode of major depressive disorder, 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 [place] [address] [place] [id number] [place] [address] 79738- 3381 May, Severe single current episode of major depressive disorder, 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 and Cough R05 [place] [address] [place] [id number] [place] [address] 37660- 7378 Apr, Severe single current episode of major depressive disorder, 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 [place] [address] [place] [id number] [place] [address] 82487- 6236 Mar, Severe single current episode of major depressive disorder, 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 [place] [address] [place] [id number] [place] [address] 82127- 6813 Feb, Encounter for routine adult health examination with abnormal findings Z00.01 ; Morbid (severe) obesity due to excess calories E66.01 and Exposure to hepatitis C Z20.5 [place] [address] [address]- 8869 Feb, Encounter for routine adult health examination with abnormal findings Z00.01 ; Morbid (severe) obesity due to excess calories E66.01 ; Exposure to hepatitis C Z20.5 and Moderate episode of recurrent major depressive disorder F33.1 [place] [address] [address]- 7[address] Jan, Acute seasonal allergic rhinitis due to pollen J30.1 [place] [address] 9[address]52- 7182 Sep, Acute suppurative otitis media of right ear without spontaneous rupture of tympanic membrane, recurrence not specified H66.001 and Acute pain of right shoulder M25.511 [facility]ALK IN [facility] [address] [address] Jul, Vaginal discharge N89.8 and Vaginal candidiasis B37.3 [place] [address] 72988- 2104 May, Eustachian tube dysfunction, left H69.[address] [address]- 2[address] 09 Apr, 2016 Bronchitis J40 and Tobacco abuse counseling Z71.6 [place] [address] [address]- 8[address] Oct, URI (upper respiratory infection) J06.9 ; HTN (hypertension ) I10 and Obesity E66.9 [facility] [address] [address] Oct, Pharyngitis J02.9 and Sore throat J02.9 [facility] [address] [place] [address] 90250- 4620 May, Cough due to bronchospasm J98.01 [facility] [address] [place] [id number] [place] [address] 80865- 4287 May, Pneumonia J18.9 and Elevated blood pressure (not hypertension) R03.0 [facility] [address] [place] [address] 43932- 0833 Nov, [facility] [address] [place] [id number] [place] [address] 51244- 9003 Nov, [facility] [address] [place] [id number] [place] [address] 56451- 9236 Sep, [facility] [address] [place] [id number] [place] [address] 60302- 5700 Sep, [facility] [address] [place] [address] 13430- 0142 Sep, [facility] [address] [place] [address] 22466- 1270 Sep, [facility] [address] [address] 7[address] Aug, [facility] [address] [address]- 8121 Aug, [facility] [address] [place] [address] 70461- 3563 Aug, [facility] [address] [place] [address] 25823- 8270 Aug, [facility] [address] [address] 28[address] Aug, [facility] [address] [facility] [id number] [place] [address]- 6806 Aug, [facility] [address] [id number] [place] [address]- 8862 Aug, [facility] [place] [facility] [address] [id number] [place] [address]- 5526 Aug, [facility] [place] [facility] [address] [id number] [place] [address]- 0040 Aug, [facility] [place] [facility] [address] [id number] [place] [address]- 5454 Aug, [facility] [place] [facility] [address] [id number] [place] [address] Jul, [facility] [place] [facility] [address] [id number] [place] [address]- 0064 Jul, [facility] [place] [facility] [address] [id number] [place] [address]- 0796 Jul, [facility] [address] [id number] [place] [address]- 8408 Jul, [facility] [place] [facility] [address] [id number] [place] [address]- 1859 Jul, [facility] [place] [facility] [address] [id number] [place] [address]- 8449 Jul, [facility] [place] [facility] [address] [id number] [place] [address]- 7515 Jul, [facility] [place] [facility] [address] [id number] [place] [address]- 0640 Jul, [facility] [place] [facility] [address] [id number] [place] [address] Jul, [facility] [place] [facility] [address] [id number] [place] [address]- 7296 05 Jul, 2014 [facility] [place] [facility] [address] [id number] [place] [address]- 9938 Jul, [facility] [place] [facility] [address] [id number] [place] [address]- 8114 May, [facility] [place] [facility] [address] [id number] [place] [address]- 3345 May, [facility] [place] [facility] [address] [id number] [place] [address]- 2501 Apr, [facility] [place] [facility] [address] [id number] [place] [address]- 8280 Apr, [facility] [place] [facility] [address] [id number] [place] [address]- 7620 Jan, [facility] [place] [facility] [address] [id number] [place] [address]- 8338 Jan, [facility] [place] [facility] [address] [facility] [id number] [place] [address]- 6234 Oct, [facility] [place] [facility] [address] [id number] [address]- 8553 Oct, [facility] [place] [facility] [address] [id number] [place] [address]- 8011 Sep, [facility] [place] [facility] [address] [id number] [address]- 5410 Sep, [facility] [place] [facility] [address] [id number] [address]- 5270 Sep, [facility] [place] [facility] [address] [id number] [address]- 3699 Sep, [facility] [place] [facility] [address] [id number] [place] [address]- 8107 Sep, [facility] [place] [facility] [address] [id number] [address] Sep, [facility] [place] [facility] [address] [id number] [place] [address] Aug, [facility] [place] [facility] [address] [address]- 7767 Aug, [facility] [address] [address]- 9696 Jun, [facility] [address] [address]- 3378 Jun, [facility] [address] [address]- [address] Jun, [facility] [address] [address] Jun, [facility] [address] [place] [address] 17449- 9656 Jun, [facility] [address] [address] Jun, [facility] [address] [address]- 9037 May, [facility] [address] [address] May, [facility] [address] [address]- 6962 Mar, [facility] [address] [address]- 6684 Mar, [facility] [address] [address]- 2347 December, [facility] [address] [place] [id number] [address]- 4147 December, IMMUNIZATIONS No Known Immunizations SOCIAL HISTORY Never Assessed REASON FOR VISIT Refill request PLAN OF CARE VITAL SIGNS MEDICATIONS Medication Instructions Dosage Frequency Start Date End Date Duration Status Venlafaxine HCl ER 150 MG Orally Once a day 1 capsule with food 24h 30 Active Seroquel 100 mg Orally Once a day 1 tablet 24h Aug, 30 Active RESULTS No Results PROCEDURES No Known [...]
--- OUTSIDE RECORDS SUMMARY | 2018-07-03 21:23 | XMS REPORT ---
Author Author MANSI PURDYELE Organization 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 Claims Supervisor Name Role Phone DARWIN PURDY Unavailable PROBLEMS Type Condition ICD9-CM Code SKI94-ZD Code Onset Dates Condition Status SNOMED Code Problem Right carpal tunnel syndrome G56.01 Active 940564659829649 Problem Migraine without aura and without status migrainosus, not intractable G43.009 Active 353672911 Problem Morbid (severe) obesity due to excess calories E66.01 Active 483383917 Problem Carpal tunnel syndrome, bilateral G56.03 Active 30797944467734156 Problem Severe single current episode of major depressive disorder, 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 Active 41664122 ALLERGIES No Information ENCOUNTERS Encounter Location Date Diagnosis [facility] [address] [address] December, Right carpal tunnel syndrome G56.01 [place] [address] [address]- 6790 December, Severe single current episode of major depressive disorder, 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 ; Carpal tunnel syndrome, bilateral G56.03 and Elevated blood pressure reading R03.0 [place] [address] [address]- 4431 December, Carpal tunnel syndrome, bilateral G56.03 [facility] [address] [id number] December, Dental caries K02.9 [facility] [address] 09[address]- 5453 Nov, Carpal tunnel syndrome, bilateral G56.03 [facility] [address] [id number] Nov, Dental examination Z01.20 [place] [address] [place] [id number] [place] [address] 67267- 5692 Nov, Carpal tunnel syndrome, bilateral G56.03 ; Severe single current episode of major depressive disorder, 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 ; Morbid (severe) obesity due to excess calories E66.01 and Migraine without aura and without status migrainosus, not intractable G43.[address] [address]- [address]707 Oct, Nausea R11.0 ; Epigastric abdominal pain R10.13 and BMI 40.0 -44.9, adult Z68.[address] 9[address]59- 3212 Oct, [address] 83265- 4485 Aug, Severe single current episode of major depressive disorder, 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 ; BMI 40.0-44.9, adult Z68.41 ; Fatigue, unspecified type R53.83 ; Other viral agents as the cause of diseases classified elsewhere B97.89 and Acute upper respiratory infection, unspecified J06.9 [place] [id number] [place] [address] 37362- 6660 Jul, BMI 40.0-44.9, adult Z68.41 and Severe single current episode of major depressive disorder, 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 [place] [address] [place] [id number] [place] [address] 29650- 3091 Jun, Severe single current episode of major depressive disorder, 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 [place] [address] [place] [id number] [place] [address] 02314- 7532 May, Severe single current episode of major depressive disorder, 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 and Cough R05 [place] [address] [place] [id number] [place] [address] 77272- 1528 Apr, Severe single current episode of major depressive disorder, 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 [place] [address] [place] [id number] [place] [address] 96906- 7244 Mar, Severe single current episode of major depressive disorder, 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 [place] [address] [place] [id number] [place] [address] 81350- 9727 Feb, Encounter for routine adult health examination with abnormal findings Z00.01 ; Morbid (severe) obesity due to excess calories E66.01 and Exposure to hepatitis C Z20.5 [place] [address] [address]52- 0774 Feb, Encounter for routine adult health examination with abnormal findings Z00.01 ; Morbid (severe) obesity due to excess calories E66.01 ; Exposure to hepatitis C Z20.5 and Moderate episode of recurrent major depressive disorder F33.1 [place] [address] 39251- 9354 Jan, Acute seasonal allergic rhinitis due to pollen J30.1 [place] [address] 80079- 5101 Sep, Acute suppurative otitis media of right ear without spontaneous rupture of tympanic membrane, recurrence not specified H66.001 and Acute pain of right shoulder M25.511 [facility] [address] [address]23 Jul, Vaginal discharge N89.8 and Vaginal candidiasis B37.3 [place] [address] 92712- 7651 May, Eustachian tube dysfunction, left H69.[address] 87848- 5799 09 Apr, 2016 Bronchitis J40 and Tobacco abuse counseling Z71.6 [place] [address] 86580- 1896 Oct, URI (upper respiratory infection) J06.9 ; HTN (hypertension ) I10 and Obesity E66.9 [facility] [address] [address] Oct, Pharyngitis J02.[address] [facility] [address] [place] [address] 32777- 5984 May, Cough due to bronchospasm J98.01 [facility] [address] [place] [id number] [place] [address] 45207- 5999 May, Pneumonia J18.9 and Elevated blood pressure (not hypertension) R03.0 [facility] [address] [place] [address] 14410- 4743 Nov, [facility] [address] [place] [id number] [place] [address] 46731- 2091 Nov, [facility] [address] [place] [id number] [place] [address] 78123- 1705 Sep, [facility] [address] [place] [id number] [place] [address] 58455- 0495 Sep, [facility] [address] [place] [address] 00125- 6325 Sep, [facility] [address] [place] [address] 29701- 1849 Sep, [facility] [address], [place] [address]- 2952 Aug, [facility] [address], [place] [address]- 7481 Aug, [facility] [address] [place] [address] 68720- 6957 Aug, [facility] [address] [place] [address] 31315- 7958 Aug, [facility] [address], [place] [address]- 4273 Aug, [facility] [address] [facility] [id number] [place] [address]- 6379 Aug, [facility] [address] [id number] [place] [address]- 7253 Aug, [facility] [place] [facility] [address] [id number] [place] [address]- 0526 Aug, [facility] [place] [facility] [address] [id number] [place] [address]- 5010 Aug, [facility] [place] [facility] [address] [id number] [place] [address]- 1977 Aug, [facility] [place] [facility] [address] [id number] [place] [address]18 Jul, [facility] [place] [facility] [address] [id number] [place] [address]- 1557 Jul, [facility] [place] [facility] [address] [id number] [place] [address]- 0453 Jul, [facility] [address] [id number] [place] [address]- 6499 Jul, [facility] [place] [facility] [address] [id number] [place] [address]- 8533 Jul, [facility] [place] [facility] [address] [id number] [place] [address]- 7193 Jul, [facility] [place] [facility] [address] [id number] [place] [address]- 0353 Jul, [facility] [place] [facility] [address] [id number] [place] [address]- 2521 Jul, [facility] [place] [facility] [address] [id number] [place] [address]82 Jul[facility] [place] [facility] [address] [id number] [place] [address]- 7696 05 Jul, 2014 [facility] [place] [facility] [address] [id number] [place] [address]- 7492 Jul, [facility] [place] [facility] [address] [id number] [place] [address]- 7159 May, [facility] [place] [facility] [address] [id number] [place] [address]- 9639 May, [facility] [place] [facility] [address] [id number] [place] [address]- 2535 Apr, [facility] [place] [facility] [address] [id number] [place] [address]- 1197 Apr, [facility] [place] [facility] [address] [id number] [place] [address]- 9203 Jan, [facility] [place] [facility] [address] [id number] [place] [address]- 3729 Jan, [facility] [place] [facility] [address] [facility] [id number] [place] [address]- 8776 Oct, [facility] [place] [facility] [address] [id number] [address]- 4938 Oct, [facility] [place] [facility] [address] [id number] [place] [address]- 7515 Sep, [facility] [place] [facility] [address] [id number], [place] [address]- 3773 Sep, [facility] [place] [facility] [address] [id number], [place] [address]- 8305 Sep, [facility] [place] [facility] [address] [id number], [place] [address]- 6823 Sep, [facility] [place] [facility] [address] [id number] [place] [address]- 1708 Sep, [facility] [place] [facility] [address] [id number] 3766 Sep, [facility] [place] [facility] [address] [id number] [place] [address]872 Aug, [facility] [place] [facility] [address], [place] [address]- 6246 Aug, [facility] [address], [place] [address]- 1648 Jun, [facility] [address], [place] [address]- 3017 Jun, [facility] [address], [place] [address]- 0670 Jun, [facility] [address], [place] [address]- 3936 Jun, [facility] [address] [place] [address] 32268- 2969 Jun, [facility] [address], [place] [address]- 1329 Jun, [facility] [address], [place] [address]- 0995 May, [facility] [address], [place] [address]- 2097 May, [facility] [address], [place] [address]- 3376 Mar, [facility] [address], [place] [address]- 9754 Mar, [facility] [address], [place] [address]- 8286 December, [facility] [address] [id number] [address]- 1926 December, IMMUNIZATIONS No Known Immunizations SOCIAL HISTORY Never Assessed REASON FOR VISIT medication request PLAN OF CARE VITAL SIGNS MEDICATIONS Medication Instructions Dosage Frequency Start Date End Date Duration Status PredniSONE 20 MG Orally Once a day 1 tablet 24h Nov, Nov, 5 days Active RESULTS No Results PROCEDURES No [...]
--- OUTSIDE RECORDS SUMMARY | 2018-07-03 21:24 | XMS REPORT ---
Author Author MANSI PURDYELE Organization [facility] Address [address] [place] [address] Care Team Providers Care Return Checker Name Role Phone DARWIN PURDY Unavailable PROBLEMS Type Condition ICD9-CM Code PSB89-JA Code Onset Dates Condition Status SNOMED Code Problem Migraine without aura and without status migrainosus, not intractable G43.009 Active 022177563 Problem Carpal tunnel syndrome on both sides G56.03 Active 07131850026370408 Problem Morbid (severe) obesity due to excess calories E66.01 Active 383066686 Problem Carpal tunnel syndrome, bilateral G56.03 Active 24478534690856018 Problem Severe single current episode of major depressive disorder, 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 Active 03003675 ALLERGIES No Known Allergies ENCOUNTERS Encounter Location Date Diagnosis [place] [id number] [address] December, [facility] [address] [address] December, [facility] [address] [id number] December, [facility] [address] [address] Nov, Carpal tunnel syndrome, bilateral G56.03 [facility] [address] [id number] Nov, Dental examination Z01.20 [facility] [address] [address] 09 Nov, 2017 Carpal tunnel syndrome, bilateral G56.03 ; Severe single current episode of major depressive disorder, 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 ; Morbid (severe) obesity due to excess calories E66.01 and Migraine without aura and without status migrainosus, not intractable G43.009 [place] [address] [place] [id number] [place] [address] Oct, Nausea R11.0 ; Epigastric abdominal pain R10.13 and BMI 40.0 -44.9, adult Z68.41 [place] [address] [place] [id number] [place] [address] Oct, [place] [address] [address] Aug, Severe single current episode of major depressive disorder, 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 ; BMI 40.0-44.9, adult Z68.41 ; Fatigue, unspecified type R53.83 ; Other viral agents as the cause of diseases classified elsewhere B97.89 and Acute upper respiratory infection, unspecified J06.9 [place] [address] [address] Jul, BMI 40.0-44.9, adult Z68.41 and Severe single current episode of major depressive disorder, 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 [place] [address] [place] [id number] [place] [address] Jun, Severe single current episode of major depressive disorder, 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 [place] [address] [place] [id number] [place] [address] May, Severe single current episode of major depressive disorder, 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 and Cough R05 [place] [address] [place] [id number] [place] [address] Apr, Severe single current episode of major depressive disorder, 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 [place] [address] [address] Mar, Severe single current episode of major depressive disorder, 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 [place] [address] [place] [id number] [place] [address] Feb, Encounter for routine adult health examination with abnormal findings Z00.01 ; Morbid (severe) obesity due to excess calories E66.01 and Exposure to hepatitis C Z20.5 [place] [address] [place] [id number] Feb, Encounter for routine adult health examination with abnormal findings Z00.01 ; Morbid (severe) obesity due to excess calories E66.01 ; Exposure to hepatitis C Z20.5 and Moderate episode of recurrent major depressive disorder F33.1 [place] [address] [address] 12 Jan, 2017 Acute seasonal allergic rhinitis due to pollen J30.[address] [address] Sep, Acute suppurative otitis media of right ear without spontaneous rupture of tympanic membrane, recurrence not specified H66.001 and Acute pain of right shoulder M25.511 [facility] [place] [address] [address] Jul, Vaginal discharge N89.8 and Vaginal candidiasis B37.[address] [address] May, Eustachian tube dysfunction, left H69.[address] [address] Apr, Bronchitis J40 and Tobacco abuse counseling Z71.[address] [address] Oct, URI (upper respiratory infection) J06.9 ; HTN (hypertension ) I10 and Obesity E66.9 [facility] [place] [address] [address] Oct, Pharyngitis J02.9 and Sore throat J02.[address] [address] May, Cough due to bronchospasm J98.01 [facility] [address] [facility] [id number] [address] May, Pneumonia J18.9 and Elevated blood pressure (not hypertension) R03.0 [facility] [address] [address] 14 Nov, 2014 [facility] [address] [address] Nov, [facility] [address] [address] Sep, [facility] [id number] [place] [address] Sep, [facility] [address] [place] [id number] [place] [address] Sep, [facility] [id number] [place] [address] Sep, [facility] [address] [address] Aug, [facility] [id number] [place] [address] Aug, [facility] [address] [address] Aug, [facility] [address] [address] Aug, [facility] [address] [address] Aug, [facility] [address] [address] Aug, [facility] [address] [address] Aug, [facility] [address] [address] Aug, [facility] [place] [facility] [address] [id number] [place] [address] Aug, [facility] [place] [facility] [address] [id number] [place] [address] Aug, [facility] [place] [facility] [address] [id number] [place] [address] Jul, [facility] [place] [facility] [address] [id number] [place] [address] Jul, [facility] [place] [facility] [address] [id number] [place] [address] Jul, [facility] [place] [facility] [address] [id number] [place] [address] Jul, [facility] [place] [facility] [address] [id number] [place] [address] Jul, [facility] [place] [facility] [address] [id number] [place] [address] Jul, [facility] [place] [facility] [address] [id number] [place] [address] Jul, [facility] [place] [facility] [address] [id number] [place] [address] Jul, [facility] [place] [facility] [address] [id number] [place] [address] Jul, [facility] [place] [facility] [address] [id number] [place] [address] Jul, [facility] [place] [facility] [address] [id number] [place] [address] Jul, [facility] [place] [facility] [address] [id number] [place] [address] May, [facility] [place] [facility] [address] [id number] [place] [address] May, [facility] [place] [facility] [address] [id number], [place] [address] Apr, [facility] [place] [facility] [address] [id number] [place] [address] Apr, [facility] [place] [facility] [address] [id number], [place] [address] Jan, [facility] [place] [facility] [address] [facility] [id number] [place] [address] Jan, [facility] [place] [facility] [address] [id number] [place] [address] Oct, [facility] [place] [facility] [address] [id number] [place] [address] Oct, [facility] [place] [facility] [address] [facility] [id number] [place] [address] Sep, [facility] [place] [facility] [address] [facility] [id number] [place] [address] Sep, [facility] [place] [facility] [address] [facility] [id number] [place] [address] Sep, [facility] [place] [facility] [address] [facility] [id number] [place] [address] Sep, [facility] [place] [facility] [address] [facility] [id number] [place] [address] Sep, [facility] [place] [facility] [address] [facility] [id number] [place] [address] Sep, [facility] [place] [facility] [address] [id number], [place] [address] Aug, [facility] [place] [facility] [address] [id number], [place] [address] Aug, [facility] [place] [facility] [address] [facility] [id number], [place] [address] Jun, [facility] [place] [facility] [address] [facility] [id number], [place] [address] Jun, [facility] [address], [place] [address] Jun, [facility] [address], [place] [address] Jun, [facility] [address], [place] [address] Jun, [facility] [address] [address] Jun, [facility] [address] [address] May, [facility] [address], [place] [address] May, [facility] [address] [id number] [address] Mar, [facility] [address], [place] [address] Mar, [facility] [address], [place] [address] December, [facility] [address], [place] [address] December, IMMUNIZATIONS No Known Immunizations SOCIAL HISTORY Never Assessed REASON FOR VISIT Depression---DBennettRAustin PLAN OF CARE Activity Details Follow Up 4 Weeks Reason:december evening VITAL SIGNS Height 67 in 2017-05-07 Weight 249 lbs 2017-05-07 Temperature 98.3 degrees Fahrenheit 2017-05-07 Heart Rate 70 bpm 2017-05-07 Respiratory Rate 20 2017-05-07 BMI 38.99 kg/m2 2017-05-07 Blood pressure systolic 128 mmHg 2017-05-07 Blood pressure diastolic 84 mmHg 2017-05-07 MEDICATIONS Medication Instructions Dosage Frequency Start Date End Date Duration Status Venlafaxine HCl 75 MG Orally Once a day 1 tablet with food 24h Apr, 30 day(s) Active RESULTS No Results PROCEDURES [...]
--- OUTSIDE RECORDS SUMMARY | 2018-07-03 21:24 | XMS REPORT ---
Author Author DARWIN PURDY Organization [facility] Address [address] [place] [address] Care Team Providers Care Gi Tech Name Role Phone DARWIN PURDY Unavailable PROBLEMS Type Condition ICD9-CM Code LLF22-VT Code Onset Dates Condition Status SNOMED Code Problem Morbid (severe) obesity due to excess calories E66.01 Active 989512072 Problem Moderate episode of recurrent major depressive disorder F33.1 Active 802598334 ALLERGIES Substance Reaction Event Type Date Status N.K.D.A. Unknown Non Drug Allergy Jul, Unknown SOCIAL HISTORY No smoking Hx information available PLAN OF CARE Activity Details Follow Up prn Reason: VITAL SIGNS Height 67 in 2016-08-09 Weight 276.8 lbs 2016-08-09 Temperature 97.9 degrees Fahrenheit 2016-08-09 Heart Rate 96 bpm 2016-08-09 Respiratory Rate 18 2016-08-09 BMI 43.35 kg/m2 2016-08-09 MEDICATIONS Medication Instructions Dosage Frequency Start Date End Date Duration Status Diflucan 150 MG Orally one time 1 tablet today and repeat in 7 days Jul, 2 Aug, 2016 2 days Active RESULTS Name Result Date Reference Range TEST, URINE (IN HOUSE) 2016-08-09 RESULTS negative Lot # [id number] Control + Exp date 2018-01-07 UA LONG DIP (IN HOUSE) 2016-08-09 Lot # [id number] Exp date 2017-09-09 Clarity clear Color dark yellow Odor none GLU negative SB 1+ KET negative SG >=1.030 BLO negative pH 6.0 Protein trace URO 0.2 NIT negative MAISHA negative Lot # [id number] Exp date 2017-09 BACTERIAL VAGINOSIS (IN HOUSE) 2016-08-09 RESULTS negative Control + Lot # [id number] Exp date 2017-04 TRICHOMONAS (IN HOUSE) 2016-08-12 TRICHOMONAS negative Control + Lot # [id number] Exp date 2017-02 PAP TEST, HPV IF ASCUS 2016-08-09 DIAGNOSIS: Specimen adequacy: Clinician provided ICD10: Performed by: . . Pathologist provided ICD10: Note: . CULTURE, GENITAL 2016-08-09 Genital Culture, Routine Final report Result 1 Result 2 Yeast isolated. Result 3 PDF Report 2016-08-09 PDF Report1 LCLS GC/CHLAM PROBE (STATE) CHLAMYDIA negative GC negative PROCEDURES Procedure Date Ordered Related Diagnosis Body Site URINALYSIS, AUTO, W/O SCOPE Aug 09, 2016 URINE TEST Aug 09, 2016 Office Visit, Est Pt., Level 3 Aug 09, 2016 CULTURE, BACTERIA, OTHER Aug 09, 2016 TRICHOMONAS ASSAY W/OPTIC Aug 09, 2016 SPECIMEN HANDLING Aug 09, 2016 No Charge Aug 09, 2016 US VAG, DNA, DIR PROBE Aug 09, 2016 IMMUNIZATIONS No Known Immunizations
--- OUTSIDE RECORDS SUMMARY | 2018-07-03 21:24 | XMS REPORT ---
Author Author PURDYMANSI LittleELE Organization [facility] Address [address] [place] [address] Care Team Providers Care Radioactivity Technician Name Role Phone DARWIN PURDY Unavailable PROBLEMS Type Condition ICD9-CM Code WIP24-GN Code Onset Dates Condition Status SNOMED Code Problem Right carpal tunnel syndrome G56.01 Active 432463884627380 Problem Migraine without aura and without status migrainosus, not intractable G43.009 Active 642156664 Problem Morbid (severe) obesity due to excess calories E66.01 Active 393674084 Problem Carpal tunnel syndrome, bilateral G56.03 Active [id number] Problem Severe single current episode of major depressive disorder, 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 Active 49402932 ALLERGIES No Known Allergies ENCOUNTERS Encounter Location Date Diagnosis [facility] [address] [address] December, Right carpal tunnel syndrome G56.01 [facility] [address] [address] December, Severe single current episode of major depressive disorder, 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 ; Carpal tunnel syndrome, bilateral G56.03 and Elevated blood pressure reading R03.0 [facility] [address] [address] December, Carpal tunnel syndrome, bilateral G56.03 [facility] [address] [id number] December, Dental caries K02.9 [facility] [address] [address] Nov, Carpal tunnel syndrome, bilateral G56.03 [facility] [address] [id number] Nov, Dental examination Z01.20 [place] [address] [address] Nov, Carpal tunnel syndrome, bilateral G56.03 ; Severe single current episode of major depressive disorder, 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 ; Morbid (severe) obesity due to excess calories E66.01 and Migraine without aura and without status migrainosus, not intractable G43.009 [place] [address] [address] Oct, Nausea R11.0 ; Epigastric abdominal pain R10.13 and BMI 40.0 -44.9, adult Z68.[address] [address] Oct, [address] [address] Aug, Severe single current episode of major depressive disorder, 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 ; BMI 40.0-44.9, adult Z68.41 ; Fatigue, unspecified type R53.83 ; Other viral agents as the cause of diseases classified elsewhere B97.89 and Acute upper respiratory infection, unspecified J06.[address] [address] Jul, BMI 40.0-44.9, adult Z68.41 and Severe single current episode of major depressive disorder, 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 [place] [address] [place] [id number] [place] [address] Jun, Severe single current episode of major depressive disorder, 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 [place] [address] [address] May, Severe single current episode of major depressive disorder, 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 and Cough R05 [place] [address] [place] [id number] [place] [address] Apr, Severe single current episode of major depressive disorder, 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 [place] [address] [place] [id number] [place] [address] Mar, Severe single current episode of major depressive disorder, 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 [place] [address] [place] [id number] [place] [address] Feb, Encounter for routine adult health examination with abnormal findings Z00.01 ; Morbid (severe) obesity due to excess calories E66.01 and Exposure to hepatitis C Z20.5 [place] [address] [address] Feb, Encounter for routine adult health examination with abnormal findings Z00.01 ; Morbid (severe) obesity due to excess calories E66.01 ; Exposure to hepatitis C Z20.5 and Moderate episode of recurrent major depressive disorder F33.1 [place] [address] [address] Jan, Acute seasonal allergic rhinitis due to pollen J30.1 [place] [address] [address] Sep, Acute suppurative otitis media of right ear without spontaneous rupture of tympanic membrane, recurrence not specified H66.001 and Acute pain of right shoulder M25.511 [facility] [address] [address] Jul, Vaginal discharge N89.8 and Vaginal candidiasis B37.3 [place] [address] [address] May, Eustachian tube dysfunction, left H69.82 [place] [address] [address] 09 Apr, 2016 Bronchitis J40 and Tobacco abuse counseling Z71.6 [place] [address] [address] Oct, URI (upper respiratory infection) J06.9 ; HTN (hypertension ) I10 and Obesity E66.9 [facility] [address] [address] Oct, Pharyngitis J02.9 and Sore throat J02.9 [facility] [address] [place] [id number] [place] [address] May, Cough due to bronchospasm J98.01 [facility] [address] [place] [id number] [place] [address] May, Pneumonia J18.9 and Elevated blood pressure (not hypertension) R03.0 [facility] [address] [place] [id number] [place] [address] Nov, [facility] [address] [place] [id number] [place] [address] Nov, [facility] [address] [place] [id number] [place] [address] Sep, [facility] [address] [place] [id number] [place] [address] Sep, [facility] [address] [place] [id number] [place] [address] Sep, [facility] [address] [place] [id number] [place] [address] Sep, [facility] [id number] [place] [address] Aug, [facility] [id number] [place] [address] Aug, [facility] [address] [place] [id number] [place] [address] Aug, [facility] [address] [place] [id number] [place] [address] Aug, [facility] [id number] [place] [address] Aug, [facility] [address] [id number] [place] [address] Aug, [facility] [place] [facility] [address] [id number] [place] [address] Aug, [facility] [place] [facility] [address] [id number] [place] [address] Aug, [facility] [place] [facility] [address] [id number] [place] [address] Aug, [facility] [place] [facility] [address] [id number] [place] [address] Aug, [facility] [place] [facility] [address] [id number] [place] [address] Jul, [facility] [place] [facility] [address] [id number] [place] [address] Jul, [facility] [place] [facility] [address] [id number] [place] [address] Jul, [facility] [place] [facility] [address] [id number] [place] [address] Jul, [facility] [place] [facility] [address] [id number] [place] [address] Jul, [facility] [place] [facility] [address] [id number] [place] [address] Jul, [facility] [place] [facility] [address] [id number] [place] [address] Jul, [facility] [place] [facility] [address] [id number] [place] [address] Jul, [facility] [place] [facility] [address] [id number] [place] Jul, [facility] [place] [facility] [address] [id number] [place] [address] 05 Jul, 2014 [facility] [place] [facility] [address] [id number] [place] [address] Jul, [facility] [place] [facility] [address] [id number] [place] [address] May, [facility] [place] [facility] [address] [id number] [place] [address] May, [facility] [place] [facility] [address] [id number] [place] [address] Apr, [facility] [place] [facility] [address] [id number] [place] [address] Apr, [facility] [place] [facility] [address] [id number] [place] [address] Jan, [facility] [place] [facility] [address] [id number] [place] [address] Jan, [facility] [place] [facility] [address] [place] [id number] [address] Oct, [facility] [place] [facility] [address] [id number] [place] [address] Oct, [facility] [place] [facility] [address] [id number] [place] [address]- [address] Sep, [facility] [place] [facility] [address] [facility] [id number] [place] [address] Sep, [facility] [place] [facility] [address] [id number], [place] [address] Sep, [facility] [place] [facility] [address] [id number], [place] [address] Sep, [facility] [place] [facility] [address] [id number] [place] [address] Sep, [facility] [place] [facility] [address] [facility] [id number] [address] Sep, [facility] [place] [facility] [address] [facility] [id number] [place] [address]- [address] Aug, [facility] [place] [facility] [address] [address] Aug, [facility] [address] [address] Jun, [facility] [address] [address] Jun, [facility] [address] [address] Jun, [facility] [address] [facility] [id number], [place] [address] Jun, [facility] [address] [address] Jun, [facility] [address] [address] Jun, [facility] [address] [address] May, [facility] [address] [address] May, [facility] [address], [place] [address] Mar, [facility] [address] [place] [id number] [address] Mar, [facility] [address] [place] [id number], [place] [address] December, [facility] [address] [place] [id number], [place] [address] December, IMMUNIZATIONS No Known Immunizations SOCIAL HISTORY Never Assessed REASON FOR VISIT Depression: follow up visit, states no changes in symptoms of depression lenore escobar PLAN OF CARE Activity Details Follow Up 4 Weeks Reason:follow up depression VITAL SIGNS Height 67 in 2017-08-06 Weight 260 lbs 2017-08-06 Temperature 97 degrees Fahrenheit 2017-08-06 Heart Rate 84 bpm 2017-08-06 Respiratory Rate 20 2017-08-06 BMI 40.72 kg/m2 2017-08-06 Blood pressure systolic 124 mmHg 2017-08-06 Blood pressure diastolic 80 mmHg 2017-08-06 MEDICATIONS Medication Instructions Dosage Frequency Start Date End Date Duration Status Venlafaxine HCl 100 mg Orally Once a day 1 tablet with food 24h Jul, 30 day(s) Active Seroquel 50 mg Orally Once a day at bedtime 1 tablet May, 30 day(s) Active RESULTS No Results [...]
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
--- OUTSIDE RECORDS SUMMARY | 2018-07-03 21:24 | XMS REPORT ---
Author Author MONIK ARMENDARIZ [employer] Address Unknown Phone Unavailable Care Team Providers Care Mate First Name Role Phone MONIK ARMENDARIZ CP Unavailable Allergies, Adverse Reactions, Alerts Substance Reaction Event Type N.K.D.A. Info Not Available Non Drug Allergy Problems Problem Type Condition Code Onset Dates Condition Status Problem Obesity E66.9 Active Problem Elevated blood pressure (not hypertension) R03.0 Active Problem HTN (hypertension) I10 Active Assessment Eustachian tube dysfunction, left H69.82 Active Medications No Known Medications Procedures Procedure Coding System Code Date Office Visit, Est Pt., Level 3 CPT-4 86460 May 13, 2016 Vital Signs Date/Time: May 13, 2016 Cardiac Monitoring Heart Rate 90 bpm Weight 300.5 lbs Height 67 in BMI 47.06 Index Blood Pressure Diastolic 76 mmHg Blood Pressure Systolic 128 mmHg Results No Known Results Summary Purpose [employer]Clinical[employer] Submission
--- OUTSIDE RECORDS SUMMARY | 2018-07-03 21:25 | XMS REPORT ---
Author Author PURDYMANSI LittleELE Organization [facility] Address [address] [place] [address] Care Team Providers Care Quality Control Operator Name Role Phone DARWIN PURDY Unavailable PROBLEMS Type Condition ICD9-CM Code LKT89-UL Code Onset Dates Condition Status SNOMED Code Problem Right carpal tunnel syndrome G56.01 Active 919300384592072 Problem Migraine without aura and without status migrainosus, not intractable G43.009 Active 687444996 Problem Morbid (severe) obesity due to excess calories E66.01 Active 140287775 Problem Carpal tunnel syndrome, bilateral G56.03 Active [id number] Problem Severe single current episode of major depressive disorder, 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 Active 68207912 ALLERGIES No Known Allergies ENCOUNTERS Encounter Location Date Diagnosis [facility] [address] [address] December, Right carpal tunnel syndrome G56.01 [facility] [address] [address] December, Severe single current episode of major depressive disorder, 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 ; Carpal tunnel syndrome, bilateral G56.03 and Elevated blood pressure reading R03.0 [facility] [address] [address] December, Carpal tunnel syndrome, bilateral G56.03 [facility] [address] [id number] December, Dental caries K02.9 [facility] [address] [address] Nov, Carpal tunnel syndrome, bilateral G56.03 [facility] [address] [id number] Nov, Dental examination Z01.20 [place] [address] [address] Nov, Carpal tunnel syndrome, bilateral G56.03 ; Severe single current episode of major depressive disorder, 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 ; Morbid (severe) obesity due to excess calories E66.01 and Migraine without aura and without status migrainosus, not intractable G43.009 [place] [address] [address] Oct, Nausea R11.0 ; Epigastric abdominal pain R10.13 and BMI 40.0 -44.9, adult Z68.[address] [address] Oct, [address] [address] Aug, Severe single current episode of major depressive disorder, 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 ; BMI 40.0-44.9, adult Z68.41 ; Fatigue, unspecified type R53.83 ; Other viral agents as the cause of diseases classified elsewhere B97.89 and Acute upper respiratory infection, unspecified J06.[address] [address] Jul, BMI 40.0-44.9, adult Z68.41 and Severe single current episode of major depressive disorder, 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 [place] [address] [place] [id number] [place] [address]- 6[address] Jun, Severe single current episode of major depressive disorder, 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 [place] [address] [address] May, Severe single current episode of major depressive disorder, 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 and Cough R05 [place] [address] [place] [id number] [place] [address]- 4[address] Apr, Severe single current episode of major depressive disorder, 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 [place] [address] [place] [id number] [place] [address]43- 9578 Mar, Severe single current episode of major depressive disorder, 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 [place] [address] [place] [id number] [place] [address]46- 2569 Feb, Encounter for routine adult health examination with abnormal findings Z00.01 ; Morbid (severe) obesity due to excess calories E66.01 and Exposure to hepatitis C Z20.5 [place] [address] [address] Feb, Encounter for routine adult health examination with abnormal findings Z00.01 ; Morbid (severe) obesity due to excess calories E66.01 ; Exposure to hepatitis C Z20.5 and Moderate episode of recurrent major depressive disorder F33.1 [place] [address] [address] Jan, Acute seasonal allergic rhinitis due to pollen J30.1 [place] [address] [address]- [address] Sep, Acute suppurative otitis media of right ear without spontaneous rupture of tympanic membrane, recurrence not specified H66.001 and Acute pain of right shoulder M25.511 [facility] [address] [address] Jul, Vaginal discharge N89.8 and Vaginal candidiasis B37.3 [place] [address] [address]- 9[address] May, Eustachian tube dysfunction, left H69.82 [place] [address] [address]- 6[address] 09 Apr, 2016 Bronchitis J40 and Tobacco abuse counseling Z71.6 [place] [address] [address]- [address] Oct, URI (upper respiratory infection) J06.9 ; HTN (hypertension ) I10 and Obesity E66.9 [facility] [address] [address] Oct, Pharyngitis J02.9 and Sore throat J02.9 [facility] [address] [place] [id number] [place] [address] 26[address]- 4463 May, Cough due to bronchospasm J98.01 [facility] [address] [place] [id number] [place] [address] 40103- 2219 May, Pneumonia J18.9 and Elevated blood pressure (not hypertension) R03.0 [facility] [address] [place] [id number] [place] [address] 57344- 2215 Nov, [facility] [address] [place] [id number] [place] [address] 58419- 6899 Nov, [facility] [address] [place] [id number] [place] [address] 47821- 0471 Sep, [facility] [address] [place] [id number] [place] [address] 51473- 0791 Sep, [facility] [address] [place] [id number] [place] [address] 10445- 5405 Sep, [facility] [address] [place] [id number] [place] [address] 14383- 1067 Sep, [facility] [address] [place] [address] 30808- 4183 Aug, [facility] [address] [place] [address] 95621- 6490 Aug, [facility] [address] [place] [id number] [place] [address] 86694- 7453 Aug, [facility] [address] [place] [id number] [place] [address] 73055- 3743 Aug, [facility] [address] [place] [address] 14510- 6957 Aug, [facility] [address] [id number] [place] [address]- [address] Aug, [facility] [place] [facility] [address] [id number] [place] [address]- 6938 Aug, [facility] [place] [facility] [address] [id number] [place] [address]- 6[address] Aug, [facility] [place] [facility] [address] [id number] [place] [address]- 0989 Aug, [facility] [place] [facility] [address] [id number] [place] [address]- 2026 Aug, [facility] [place] [facility] [address] [id number] [place] [address]- 4336 Jul, [facility] [place] [facility] [address] [id number] [place] [address]- 1745 Jul, [facility] [place] [facility] [address] [id number] [place] [address]- 6065 Jul, [facility] [place] [facility] [address] [id number] [place] [address]- 7487 Jul, [facility] [place] [facility] [address] [id number] [place] [address]- 0846 Jul, [facility] [place] [facility] [address] [id number] [place] [address]- 5630 Jul, [facility] [place] [facility] [address] [id number] [place] [address]- 3992 Jul, [facility] [place] [facility] [address] [id number] [place] [address]- 9822 Jul, [facility] [place] [facility] [address] [id number] [place] [address] Jul, [facility] [place] [facility] [address] [id number] [place] [address]- 2396 05 Jul, 2014 [facility] [place] [facility] [address] [id number] [place] [address] Jul, [facility] [place] [facility] [address] [id number] [place] [address]- 0802 May, [facility] [place] [facility] [address] [id number] [place] [address]- 5091 May, [facility] [place] [facility] [address] [id number] [place] [address]- 3309 Apr, [facility] [place] [facility] [address] [id number] [place] [address]- 7435 Apr, [facility] [place] [facility] [address] [id number] [place] [address]- 0948 Jan, [facility] [place] [facility] [address] [id number] [place] [address]- 9293 Jan, [facility] [place] [facility] [address] [place] [id number] [address]- 0[address] Oct, [facility] [place] [facility] [address] [id number] [place] [address]- 2919 Oct, [facility] [place] [facility] [address] [id number] [place] [address]- 7488 Sep, [facility] [place] [facility] [address] [facility] [id number] [place] [address]- 2272 Sep, [facility] [place] [facility] [address] [id number] [address]- 1612 Sep, [facility] [place] [facility] [address] [id number] [address]- 52[address] Sep, [facility] [place] [facility] [address] [id number] [place] [address]- 2265 Sep, [facility] [place] [facility] [address] [facility] [id number] [address] Sep, [facility] [place] [facility] [address] [facility] [id number] [place] [address]- 0381 Aug, [facility] [place] [facility] [address], [place] [address]- 7[address] Aug, [facility] [address], [place] [address]- 44[address] Jun, [facility] [address]- [address] Jun, [facility] [address], [place] [address]- 8364 Jun, [facility] [address] [address] Jun, [facility] [address], [place] [address]- 8483 Jun, [facility] [address] 9466 Jun, [facility] [address], [place] [address]- 9658 May, [facility] [address] [address] May, [facility] [address], [place] [address]- 0629 Mar, [facility] [address], [place] [address]- 4[address] Mar, [facility] [address] [place] [id number] [address]- [address] December, [facility] [address] [place] [id number] December, IMMUNIZATIONS No Known Immunizations SOCIAL HISTORY Never Assessed REASON FOR VISIT Depression f/u-AHarrymanWILLY, States she has been feeling unwell x1 week, dizzy, feels intoxicated PLAN OF CARE Activity Details Follow Up 4 Weeks Reason:depression f/u VITAL SIGNS Height 67 in 2017-08-31 Weight 264.0 lbs 2017-08-31 Temperature 98.6 degrees Fahrenheit 2017-08-31 Heart Rate 84 bpm 2017-08-31 Respiratory Rate 20 2017-08-31 BMI 41.34 kg/m2 2017-08-31 Blood pressure systolic 124 mmHg 2017-08-31 Blood pressure diastolic 82 mmHg 2017-08-31 MEDICATIONS Medication Instructions Dosage Frequency Start Date End Date Duration Status Venlafaxine HCl ER 150 MG Orally Once a day 1 capsule with food 24h Aug 30 day(s) Active Seroquel 100 mg Orally Once a day 1 tablet 24h Aug, 30 day(s) Active RESULTS No Results PROCEDURES Procedure Date Ordered Result Body Site COMPREHEN METABOLIC PANEL Aug 31, 2017 COMPLETE CBC W/AUTO DIFF WBC Aug 31, 2017 INFLUENZA ASSAY W/OPTIC Aug 31, 2017 ASSAY THYROID STIM HORMONE Aug 31, 2017 VENIPUNCT, ROUTINE* Aug 31, 2017 INSTRUCTIONS MEDICATIONS ADMINISTERED No Known [...]
--- OUTSIDE RECORDS SUMMARY | 2018-07-03 21:25 | XMS REPORT ---
Author Author PURDYMANSI LittleELE Organization [facility] Address [address] [place] [address] Care Team Providers Care Lump Receiver Name Role Phone DARWIN PURDY Unavailable PROBLEMS Type Condition ICD9-CM Code SDJ71-GV Code Onset Dates Condition Status SNOMED Code Problem Migraine without aura and without status migrainosus, not intractable G43.009 Active 639949834 Problem Carpal tunnel syndrome on both sides G56.03 Active 61278721660075270 Problem Morbid (severe) obesity due to excess calories E66.01 Active 597958375 Problem Carpal tunnel syndrome, bilateral G56.03 Active 88740532418208569 Problem Severe single current episode of major depressive disorder, 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 Active 39074389 ALLERGIES No Known Allergies ENCOUNTERS Encounter Location Date Diagnosis [facility] [address] [address] December, [facility] [address] [address]- [address] December, [facility] [address] [address]- [address] December, Carpal tunnel syndrome, bilateral G56.03 [facility] [address] [id number] December, Dental caries K02.9 [facility] [address] [address]- [address] Nov, Carpal tunnel syndrome, bilateral G56.03 [facility] [address] [id number] Nov, 2017 Dental examination Z01.20 [facility] [address] [address]- 6939 Nov, Carpal tunnel syndrome, bilateral G56.03 ; Severe single current episode of major depressive disorder, 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 ; Morbid (severe) obesity due to excess calories E66.01 and Migraine without aura and without status migrainosus, not intractable G43.009 [place] [address] [place] [id number] [place] [address] 94652- 1195 Oct, Nausea R11.0 ; Epigastric abdominal pain R10.13 and BMI 40.0 -44.9, adult Z68.41 [place] [address] [address]- 9311 Oct, [place] [address] 15771- 2622 Aug, Severe single current episode of major depressive disorder, 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 ; BMI 40.0-44.9, adult Z68.41 ; Fatigue, unspecified type R53.83 ; Other viral agents as the cause of diseases classified elsewhere B97.89 and Acute upper respiratory infection, unspecified J06.9 [place] [address] [place] [id number] [place] [address] 94570- 5809 Jul, BMI 40.0-44.9, adult Z68.41 and Severe single current episode of major depressive disorder, 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 [place] [address] [place] [id number] [place] [address] 86588- 3193 Jun, Severe single current episode of major depressive disorder, 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 [place] [address] [place] [id number] [place] [address] 45604- 7405 May, Severe single current episode of major depressive disorder, 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 and Cough R05 [place] [address] 34377- 6264 Apr, Severe single current episode of major depressive disorder, 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 [place] [address] [place] [id number] [place] [address] 73029- 8117 Mar, Severe single current episode of major depressive disorder, 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 [place] [address] 26585- 6121 07 Feb, 2017 Encounter for routine adult health examination with abnormal findings Z00.01 ; Morbid (severe) obesity due to excess calories E66.01 and Exposure to hepatitis C Z20.5 [place] [address] 64853- 3639 06 Feb, 2017 Encounter for routine adult health examination with abnormal findings Z00.01 ; Morbid (severe) obesity due to excess calories E66.01 ; Exposure to hepatitis C Z20.5 and Moderate episode of recurrent major depressive disorder F33.1 [place] [address] [address]- 3612 12 Jan, 2017 Acute seasonal allergic rhinitis due to pollen J30.1 [place] [address] 42596- 6981 Sep, Acute suppurative otitis media of right ear without spontaneous rupture of tympanic membrane, recurrence not specified H66.001 and Acute pain of right shoulder M25.511 [facility] [place] [address] [address] Jul, Vaginal discharge N89.8 and Vaginal candidiasis B37.3 [place] [address] 82915- 6215 May, Eustachian tube dysfunction, left H69.82 [place] [address] [address]30- 9159 Apr, Bronchitis J40 and Tobacco abuse counseling Z71.6 [place] [address] 39612- 7698 Oct, URI (upper respiratory infection) J06.9 ; HTN (hypertension ) I10 and Obesity E66.9 [facility] [address] [address] Oct, Pharyngitis J02.9 and Sore throat J02.9 [facility] [address] [address]- [address]26 May, Cough due to bronchospasm J98.01 [facility] [address] [place] [address] 34783- 4200 May, Pneumonia J18.9 and Elevated blood pressure (not hypertension) R03.0 [facility] [address] [place] [id number] [place] [address] 97025- 8526 Nov, [facility] [address] [place] [id number] [place] [address] 45044- 7551 Nov, [facility] [address] [place] [id number] [place] [address] 31335- 8831 Sep, [facility] [address] [place] [id number] [place] [address] 01399- 7624 Sep, [facility] [address] [place] [id number] [place] [address] 26895- 5195 Sep, [facility] [address] [place] [address] 17698- 4959 Sep, [facility] [address] [place] [address] 40308- 5226 Aug, [facility] [address] [address]- 1255 Aug, [facility] [address] [address]- 4932 Aug, [facility] [address] [address]- 7245 Aug, [facility] [address] [place] [address] 60483- 7438 Aug, [facility] [address] [address]- 7246 Aug, [facility] [address] [place] [id number] [place] [address] [place] [address]- 0994 Aug, [facility] [address] [id number] [place] [address]- 0167 Aug, [facility] [place] [facility] [address] [id number] [place] [address]- 5451 Aug, [facility] [place] [facility] [address] [id number] [place] [address]- 5511 Aug, [facility] [place] [facility] [address] [id number] [place] [address]- 9357 Jul, [facility] [place] [facility] [address] [id number] [place] [address]- 6388 Jul, [facility] [place] [facility] [address] [id number] [place] [address]- 4909 Jul, [facility] [place] [facility] [address] [id number] [place] [address]- 5919 Jul, [facility] [place] [facility] [address] [id number] [place] [address]- 5095 Jul, [facility] [place] [facility] [address] [id number] [place] [address]- 7713 Jul, [facility] [place] [facility] [address] [id number] [place] [address]- 4727 Jul, [facility] [place] [facility] [address] [id number] [place] [address]- 0071 Jul, [facility] [place] [facility] [address] [id number] [place] [address]- 5927 Jul, [facility] [place] [facility] [address] [id number] [place] [address]- 7743 05 Jul, 2014 [facility] [place] [facility] [address] [id number] [place] [address]- 1825 05 Jul, 2014 [facility] [place] [facility] [address] [id number] [place] [address]- 4989 May, [facility] [place] [facility] [address] [id number] [place] [address]- 7329 May, [facility] [place] [facility] [address] [id number] [place] 4778 Apr, [facility] [place] [facility] [address] [id number] [place] [address]- 5002 Apr, [facility] [place] [facility] [address] [id number] [place] [address]- 1744 Jan, [facility] [place] [facility] [address] [id number] [place] [address]- 6017 Jan, [facility] [place] [facility] [address] [id number] [place] [address]- 6363 Oct, [facility] [place] [facility] [address] [facility] [id number] [place] [address]- 5222 Oct, [facility] [place] [facility] [address] [id number] [place] [address]- 8767 Sep, [facility] [place] [facility] [address] [facility] [id number] [place] [address]- 6549 Sep, [facility] [place] [facility] [address] [facility] [id number] [place] [address]- 1942 Sep, [facility] [place] [facility] [address] [facility] [id number] [place] [address]- 3356 Sep, [facility] [place] [facility] [address] [id number] [address]- 0752 Sep, [facility] [place] [facility] [address] [id number] [place] [address]- 8552 Sep, [facility] [place] [facility] [address] [id number] [address]- 3765 Aug, [facility] [place] [facility] [address] [id number] [place] 6942 Aug, [facility] [place] [facility] [address] [id number] [address]- 0308 Jun, [facility] [address] [address] Jun, [facility] [address] 7897 Jun, [facility] [address] [address] Jun, [facility] [id number] [place] [address] 679328- 9956 Jun, [facility] [address] [place] [address] 803272- 8251 Jun, [facility] [id number] [place] [address] 688041- 2072 May, [facility] [id number] [place] [address] 975271- 7933 May, [facility] [id number] [address]- 0381 Mar, [facility] [address] [place] [address] 637810- 9873 Mar, [facility] [address] [address]- 5[address] December, [facility] [address] [address] December, IMMUNIZATIONS No Known Immunizations SOCIAL HISTORY Never Assessed REASON FOR VISIT Depression f/u --tcuppettRN, -Don't notice any improvement with medication. , - Middle back pain that is constant since last . No injury noted, - wanting to discuss smoking cessation PLAN OF CARE Activity Details Follow Up 4 Weeks Reason:late thursday is ok VITAL SIGNS Height 67 in 2017-06-01 Weight 246.1 lbs 2017-06-01 Temperature 98.2 degrees Fahrenheit 2017-06-01 Heart Rate 76 bpm 2017-06-01 Respiratory Rate 20 2017-06-01 BMI 38.54 kg/m2 2017-06-01 Blood pressure systolic 140 mmHg 2017-06-01 Blood pressure diastolic 96 mmHg 2017-06-01 MEDICATIONS Medication Instructions Dosage Frequency Start Date End Date Duration Status Venlafaxine HCl 75 MG Orally Once a day 1 tablet with food 24h Apr, 30 days Active Seroquel 50 mg Orally Once a day at bedtime 1 tablet May, 30 day(s) Active RESULTS Name Result Date Reference Range Xray : Chest (IN HOUSE) 2017-06-01 PROCEDURES Procedure Date Ordered Result Body Site CHEST X-RAY Jun 01, 2017 INSTRUCTIONS MEDICATIONS ADMINISTERED No Known Medications [...]
--- OUTSIDE RECORDS SUMMARY | 2018-07-03 21:25 | XMS REPORT ---
Author Author GURWINDER DARWIN Organization [facility] Address [address] [place] [address] Care Team Providers Care Elevator Pilot Name Role Phone DARWIN PURDY Unavailable PROBLEMS Type Condition ICD9-CM Code WVX55-FT Code Onset Dates Condition Status SNOMED Code Problem Severe single current episode of major depressive disorder, 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 Active 52868697 Problem Morbid (severe) obesity due to excess calories E66.01 Active 730861179 ALLERGIES No Information ENCOUNTERS Encounter Location Date Diagnosis [place] [address] [address] December, [place] [address] [address] Oct, Nausea R11.0 ; Epigastric abdominal pain R10.13 and BMI 40.0 -44.9, adult Z68.41 [place] [address] [address] Oct, [place] [address] [address] Aug, Severe single current episode of major depressive disorder, 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 ; BMI 40.0-44.9, adult Z68.41 ; Fatigue, unspecified type R53.83 ; Other viral agents as the cause of diseases classified elsewhere B97.89 and Acute upper respiratory infection, unspecified J06.9 [place] [address] [address] Jul, BMI 40.0-44.9, adult Z68.41 and Severe single current episode of major depressive disorder, 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 [place] [address] [address] Jun, Severe single current episode of major depressive disorder, 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 [place] [address] [address] May, Severe single current episode of major depressive disorder, 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 and Cough R05 [place] [address] [address] Apr, Severe single current episode of major depressive disorder, 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 [place] [address] [address] Mar, Severe single current episode of major depressive disorder, 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 [place] [address] [address] Feb, Encounter for routine adult health examination with abnormal findings Z00.01 ; Morbid (severe) obesity due to excess calories E66.01 and Exposure to hepatitis C Z20.5 [place] [address] [address] Feb, Encounter for routine adult health examination with abnormal findings Z00.01 ; Morbid (severe) obesity due to excess calories E66.01 ; Exposure to hepatitis C Z20.5 and Moderate episode of recurrent major depressive disorder F33.1 [place] [address] [place] [id number] [place] [address] Jan, Acute seasonal allergic rhinitis due to pollen J30.1 [place] [address] [place] [id number] [place] [address] Sep, Acute suppurative otitis media of right ear without spontaneous rupture of tympanic membrane, recurrence not specified H66.001 and Acute pain of right shoulder M25.[address] [facility] [address] [place] [id number] [place] [address] Jul, Vaginal discharge N89.8 and Vaginal candidiasis B37.3 [place] [address] [address] May, Eustachian tube dysfunction, left H69.82 [facility] [address] [place] [id number] [place] [address] Apr, Bronchitis J40 and Tobacco abuse counseling Z71.6 [facility] [address] [place] [id number] [place] [address] Oct, URI (upper respiratory infection) J06.9 ; HTN (hypertension ) I10 and Obesity E66.[address] [facility] [address] [place] [id number] [place] [address] Oct, Pharyngitis J02.9 and Sore throat J02.9 [facility] [address] [address] May, Cough due to bronchospasm J98.01 [facility] [address] [address] May, Pneumonia J18.9 and Elevated blood pressure (not hypertension) R03.0 [facility] [address] [place] [id number] [place] [address] Nov, [facility] [address] [address] Nov, [facility] [address] [place] [id number] [place] [address] Sep, [facility] [address] [address] Sep, [facility] [address] [place] [id number] [place] [address] Sep, [facility] [address] [address] Sep, [facility] [address] [place] [id number] [place] [address] Aug, [facility] [address] [place] [address] Aug, [facility] [place] [facility] [address] [id number] [place] [address] Aug, [facility] [place] [facility] [address] [id number] [place] [address] Aug, [facility] [place] [facility] [address] [id number] [place] [address] Aug, [facility] [place] [facility] [address] [id number] [place] [address] Aug, [facility] [place] [facility] [address] [id number] [place] [address] Aug, [facility] [place] [facility] [address] [id number] [place] [address] Aug, [facility] [place] [facility] [address] [id number] [place] [address] Aug, [facility] [place] [facility] [address] [id number] [place] [address] Aug, [facility] [place] [facility] [address] [id number] [place] [address] Jul, [facility] [place] [facility] [address] [id number] [place] [address] Jul, [facility] [place] [facility] [address] [id number] [place] [address] Jul, [facility] [place] [facility] [address] [id number] [place] [address] Jul, [facility] [place] [facility] [address] [id number] [place] [address] 16 Jul, 2014 [facility] [place] [facility] [address] [id number] [place] [address] Jul, [facility] [place] [facility] [address] [id number] [place] [address]- [address] Jul, [facility] [place] [facility] [address] [id number] [place] [address]- [address] Jul, [facility] [place] [facility] [address] [id number] [place] [address] Jul, [facility] [place] [facility] [address] [id number] [place] Jul, [facility] [place] [facility] [address] [id number] [place] [address] Jul, [facility] [place] [facility] [address] [id number] [place] [address] May, [facility] [place] [facility] [address] [id number] [place] [address] May, [facility] [place] [facility] [address] [facility] [id number] [place] [address] Apr, [facility] [place] [facility] [address] [facility] [id number] [place] [address] Apr, [facility] [place] [facility] [address] [facility] [id number] [place] [address]- [address] Jan, [facility] [place] [facility] [address] [facility] [id number] [place] [address] Jan, [facility] [place] [facility] [address] [facility] [id number] [place] [address] Oct, [facility] [place] [facility] [address] [facility] [id number] [place] [address] Oct, [facility] [place] [facility] [address] [id number] [place] [address] Sep, [facility] [place] [facility] [address] [id number] [place] [address] Sep, [facility] [place] [facility] [address] [facility] [id number] [place] [address] Sep, [facility] [place] [facility] [address] [id number] [address] Sep, [facility] [address] [id number] [place] [address]- [address] Sep, [facility] [place] [facility] [address] [id number] [place] [address]- [address] Sep, [facility] [place] [facility] [address] [id number] [place] [address] Aug, [facility] [place] [facility] [address] [id number] [place] [address] Aug, [facility] [place] [facility] [address] [id number] [place] [address]- [address] Jun, [facility] [place] [facility] [address] [id number] [place] [address]- [address] Jun, [facility] [place] [facility] [address] [id number] [address] Jun, [facility] [place] [facility] [address] [id number] [place] [address]- [address] Jun, [facility] [place] [facility] [address] [id number] [place] [address]- [address] Jun, [facility] [place] [facility] [address] [facility] [id number] [place] [address]- [address] Jun, [facility] [place] [facility] [address] [id number] [place] [address]- [address] May, [facility] [place] [facility] [address] [id number] [place] [address]- [address] May, [facility] [place] [facility] [address] [id number] [place] [address] Mar, [facility] [place] [facility] [address] [id number] [place] [address] Mar, [facility] [place] [facility] [address] [id number] [place] [address] December, [facility] [place] [facility] [address] [facility] [id number] [place] [address] December, IMMUNIZATIONS No Known Immunizations SOCIAL HISTORY Never Assessed REASON FOR VISIT Lab (walk-in)--[facility] VITAL SIGNS MEDICATIONS Unknown Medications RESULTS Name Result Date Reference Range THYROID ANALYZER 2017-02-13 TSH 0.705 0.450-4.500 A1C 2017-02-13 Hemoglobin A1c 5.5 4.8-5.6 CBC 2017-02-13 WBC 9.2 3.4-10.8 RBC 5.28 3.77-5.28 Hemoglobin 15.4 11.1-15.9 Hematocrit 44.8 34.0-46.6 MCV 85 79-97 MCH 29.2 26.6-33.0 MCHC 34.4 31.5-35.7 RDW 14.4 12.3-15.4 Platelets 264 150-379 Neutrophils 61 Lymphs 30 Monocytes 6 Eos 3 Basos 0 Neutrophils (Absolute) 5.6 1.4-7.0 Lymphs (Absolute) 2.8 0.7-3.1 Monocytes(Absolute) 0.5 0.1-0.9 Eos (Absolute) 0.3 0.0-0.4 Baso (Absolute) 0.0 0.0-0.2 Immature Granulocytes 0 Immature Grans (Abs) 0.0 0.0-0.1 LIPID PANEL 2017-02-13 Cholesterol, Total 206 100-199 Triglycerides 241 0-149 HDL Cholesterol 33 >39 VLDL Cholesterol Jose 48 5-40 LDL Cholesterol Calc 125 0-99 CMP 2017-02-13 Glucose, Serum 83 65-99 BUN 10 6-20 Creatinine, Serum 0.73 0.57-1.00 eGFR If NonAfricn Am 110 >59 eGFR If Africn Am 127 >59 BUN/Creatinine Ratio 14 9-23 Sodium, Serum 139 134-144 Potassium, Serum 4.6 3.5-5.2 Chloride, Serum 99 96-106 Carbon Dioxide, Total 22 18-29 Calcium, Serum 9.2 8.7-10.2 Protein, Total, Serum 7.0 6.0-8.5 Albumin, Serum 4.2 3.5-5.5 Globulin, Total 2.8 1.5-4.5 A/G Ratio 1.5 1.2-2.2 Bilirubin, Total 0.6 0.0-1.2 Alkaline Phosphatase, S 65 39-117 AST (SGOT) 21 0-40 ALT (SGPT) 21 0-32 HEP C ANTIBODY (STATE) 2017-02-13 RESULTS non reactive HIV (STATE) 2017-02-13 HEP B SURFACE ANTIGEN (STATE) 2017-02-13 HEP B ANTIBODY non reactive HEP B ANTIBODY (RML) HEP B ANTIBODY (STATE) PROCEDURES Procedure Date Ordered Result Body Site ASSAY THYROID STIM HORMONE February 13, 2017 GLYCATED HEMOGLOBIN TEST February 13, 2017 VENIPUNCT, ROUTINE* February 13, 2017 LIPID PANEL February 13, 2017 COMPLETE CBC W/AUTO DIFF WBC February 13, 2017 No Charge February 13, 2017 COMPREHEN METABOLIC PANEL February 13, 2017 INSTRUCTIONS MEDICATIONS ADMINISTERED No Known Medications [...]
--- OUTSIDE RECORDS SUMMARY | 2018-07-03 21:25 | XMS REPORT ---
Author JANESSA Richardson [facility] eClinicalWorks Address Unknown Phone Unavailable Care Team Providers Care Clinical Trainer Name Role Phone JANESSA LAWTON CP Unavailable Allergies, Adverse Reactions, Alerts Substance Reaction Event Type N.K.D.A. 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 Active Problem Carpal tunnel syndrome 354.0 Active Problem Radial styloid tenosynovitis 727.04 Active Problem Pneumonia J18.9 Active Problem Acute pharyngitis 462 Active Problem Elevated blood pressure (not hypertension) R03.0 Active Problem Other dyschromia 709.09 Active Problem Sprain and strain of unspecified site of knee and leg 844.9 Active Problem Cough due to bronchospasm J98.01 Active Problem Medial epicondylitis of elbow 726.31 Active Problem Acute bronchitis 466.0 Active Problem Pure hyperglyceridemia 272.1 Active Problem Unspecified hereditary and idiopathic peripheral neuropathy 356.9 Active Problem Routine general medical examination at health care facility V70.0 Active Problem Disturbance of skin sensation 782.0 Active Problem Cough 786.2 Active Problem Cervicalgia 723.1 Active Problem Pain in joint, ankle and foot 719.47 Active Problem Unspecified disorder of skin and subcutaneous tissue 709.9 Active Problem Pain in joint, upper arm 719.42 Active Problem Screening examination for venereal disease V74.5 Active Assessment Cough due to bronchospasm J98.01 Active Problem Other ganglion and cyst of synovium, tendon, and bursa 727.49 Active Problem Unspecified symptom associated with female genital organs 625.9 Active Medications Medication Code System Code Instructions Start Date End Date Status Dosage Proventil HFA [facility] [address]-11 108 (90 Base) MCG/ACT Inhalation every 4 hrs May 21, 2015 2 puffs as needed Fenofibrate [facility] [address]-35 54 mg Sep 05, 2014 1 Tablet by Oral route 1 time per day recheck lab work after 3 months. Depo-Provera [facility] [address]-79 150 mg/mL Sep 27, 2013 inject 150 mg by intramuscular route every 3 months Promethazine-Codeine [facility] [address]-87 6.25-10 MG/5ML Orally every 6 hrs May 28, 2015 Jun 04, 2015 5 ml as needed Flexeril NDC 0 10 mg Jul 14, 2014 1 tablet by Oral route 3 times per day PRN muscle spasm Doxycycline Hyclate [facility] [address]-01 100 MG Orally every 12 hrs May 21, 2015 May 31, 2015 1 capsule Procedures Procedure Coding System Code Date Office Visit, Est Pt., Level 3 CPT-4 34054 May 28, 2015 Vital Signs Date/Time: May 28, 2015 Temperature 98.2 F Weight 302.6 lbs Height 67 in BMI 47.39 Index Blood Pressure Diastolic 78 mmHg Blood Pressure Systolic 140 mmHg Cardiac Monitoring Heart Rate 79 bpm Results No Known Results Summary Purpose eClinicalWorks Submission
--- OUTSIDE RECORDS SUMMARY | 2018-07-03 21:26 | XMS REPORT ---
Author Author JANESSA LAWTON [facility] eClinicalWorks Address Unknown Phone Unavailable Care Team Providers Care Pipelines Manager Name Role Phone JANESSA LAWTON CP Unavailable Allergies, Adverse Reactions, Alerts Substance Reaction Event Type N.K.D.A. Info Not Available Non Drug Allergy Problems Problem Type Condition Code Onset Dates Condition Status Problem Unspecified symptom associated with female genital organs 625.9 Active Problem Radial styloid tenosynovitis 727.04 Active Problem Lesion of ulnar nerve 354.2 Active Problem Elevated blood pressure (not hypertension) R03.0 Active Problem Other dyschromia 709.09 Active Problem Pure hyperglyceridemia 272.1 Active Problem Sprain and strain of unspecified site of knee and leg 844.9 Active Assessment Pneumonia J18.9 Active Problem Pneumonia J18.9 Active Problem Acute bronchitis 466.0 Active Problem Carpal tunnel syndrome 354.0 Active Problem Unspecified hereditary and idiopathic peripheral neuropathy 356.9 Active Problem Medial epicondylitis of elbow 726.31 Active Problem Cervicalgia 723.1 Active Problem Routine general medical examination at health care facility V70.0 Active Problem Acute pharyngitis 462 Active Problem Cough 786.2 Active Problem Other ganglion and cyst of synovium, tendon, and bursa 727.49 Active Problem Pain in joint, ankle and foot 719.47 Active Problem Disturbance of skin sensation 782.0 Active Problem Unspecified disorder of skin and subcutaneous tissue 709.9 Active Assessment Elevated blood pressure (not hypertension) R03.0 Active Problem Pain in joint, upper arm 719.42 Active Problem Screening examination for venereal disease V74.5 Active Medications Medication Code System Code Instructions Start Date End Date Status Dosage Doxycycline Hyclate [facility][NOTE 3] [address]-35 100 MG Orally every 12 hrs May 21, 2015 May 31, 2015 1 capsule Depo-Provera [facility][NOTE 3] [address]-67 150 mg/mL Sep 27, 2013 inject 150 mg by intramuscular route every 3 months Proventil HFA [facility][NOTE 3] [address]-06 108 (90 Base) MCG/ACT Inhalation every 4 hrs May 21, 2015 2 puffs as needed PredniSONE [facility][NOTE 3] [address]-65 10 MG Orally Twice a day May 21, 2015May 1 tablet with food or milk Procedures Procedure Coding System Code Date MYCOPLASMA ANTIBODY CPT-4 05876 May 21, 2015 CHEST X-RAY CPT-4 40613 May 21, 2015 COMPLETE CBC W/AUTO DIFF WBC CPT-4 50584 May 21, 2015 VENIPUNCT, ROUTINE* CPT-4 51767 May 21, 2015 Office Visit, Est Pt., Level 3 CPT-4 45171 May 21, 2015 Vital Signs Date/Time: May 21, 2015 Temperature 98.0 F Weight 309.6 lbs Height 67 in BMI 48.48 Index Blood Pressure Diastolic 96 mmHg Blood Pressure Systolic 142 mmHg Cardiac Monitoring Heart Rate 88 bpm Results Name Result Date Reference Range Unit Abnormality Flag ROUTINE VENIPUNCTURE MYCOPLASMA IgM Summary Purpose eClinicalWorks Submission
--- OUTSIDE RECORDS SUMMARY | 2018-07-03 21:26 | XMS REPORT ---
Author Author PURDY, DARWIN Organization [facility] Address [address] [place] [address] Care Team Providers Care Hub Borer Name Role Phone DARWIN PURDY Unavailable PROBLEMS Type Condition ICD9-CM Code [id number] Code Onset Dates Condition Status SNOMED Code Problem Migraine without aura and without status migrainosus, not intractable G43.009 Active 053538732 Problem Carpal tunnel syndrome on both sides G56.03 Active 25008772209833025 Problem Morbid (severe) obesity due to excess calories E66.01 Active 907335514 Problem Carpal tunnel syndrome, bilateral G56.03 Active [id number] Problem Severe single current episode of major depressive disorder, 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 Active 12549621 ALLERGIES No Known Allergies ENCOUNTERS Encounter Location Date Diagnosis [place] [id number] [place] [address]105- 60[address] December, [place] [address] [address] Nov, Carpal tunnel syndrome, bilateral G56.03 [facility] [address] [id number] Nov, 2017 Dental examination Z01.20 [place] [address] 067[address]- [address] Nov, Carpal tunnel syndrome, bilateral G56.03 ; Severe single current episode of major depressive disorder, 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 ; Morbid (severe) obesity due to excess calories E66.01 and Migraine without aura and without status migrainosus, not intractable G43.009 [facility] [id number] [place] [address] 21439- 3566 Oct, Nausea R11.0 ; Epigastric abdominal pain R10.13 and BMI 40.0 -44.9, adult Z68.41 [place] [id number] [place] [address] 01117- 7038 Oct, [place] [id number] [place] [address] 87237- 3350 Aug, Severe single current episode of major depressive disorder, 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 ; BMI 40.0-44.9, adult Z68.41 ; Fatigue, unspecified type R53.83 ; Other viral agents as the cause of diseases classified elsewhere B97.89 and Acute upper respiratory infection, unspecified J06.9 [place] [id number] [place] [address] 27988- 3366 Jul, BMI 40.0-44.9, adult Z68.41 and Severe single current episode of major depressive disorder, 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 [place] [id number] [place] [address] 30355- 0588 Jun, Severe single current episode of major depressive disorder, 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 [place] [id number] [place] [address] 52445- 3883 May, Severe single current episode of major depressive disorder, 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 and Cough R05 [place] [id number] [place] [address] 12695- 2880 Apr, Severe single current episode of major depressive disorder, 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 [place] [id number] [place] [address] 03819- 7991 Mar, Severe single current episode of major depressive disorder, 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 [place] [id number] [place] [address] 54488- 4066 Feb, Encounter for routine adult health examination with abnormal findings Z00.01 ; Morbid (severe) obesity due to excess calories E66.01 and Exposure to hepatitis C Z20.5 [place] [id number] [place] [address] 24237- 7616 06 Hilario, 2017 Encounter for routine adult health examination with abnormal findings Z00.01 ; Morbid (severe) obesity due to excess calories E66.01 ; Exposure to hepatitis C Z20.5 and Moderate episode of recurrent major depressive disorder F33.1 [place] [address] 69269- 6684 Jan, Acute seasonal allergic rhinitis due to pollen J30.1 [place] [address] 78644- 2049 Sep, Acute suppurative otitis media of right ear without spontaneous rupture of tympanic membrane, recurrence not specified H66.001 and Acute pain of right shoulder M25.511 [facility] [place] [address] 06687 -2398 Jul, Vaginal discharge N89.8 and Vaginal candidiasis B37.[address] 18799- 5060 May, Eustachian tube dysfunction, left H69.82 [place] [address] 26921- 2169 09 Apr, 2016 Bronchitis J40 and Tobacco abuse counseling Z71.6 [place] [address] 62169- 9418 Oct, URI (upper respiratory infection) J06.9 ; HTN (hypertension ) I10 and Obesity E66.9 [facility] [place] [address] 11388 -7516 Oct, Pharyngitis J02.9 and Sore throat J02.9 [place] [address] 05131- 4342 May, Cough due to bronchospasm J98.01 [place] [address] 66990- 9962 May, Pneumonia J18.9 and Elevated blood pressure (not hypertension) R03.0 [place] [address] [place] [address] 6855 14 Nov, 2014 [facility] [place] [facility] [address] [id number] [place] [address]- 1449 Nov, [facility] [place] [facility] [address] [id number] [place] [address] Sep, [facility] [place] [facility] [address] [id number] [place] [address]- 4816 Sep, [facility] [place] [facility] [address] [id number] [place] [address]- 1204 Sep, [facility] [place] [facility] [address] [id number] [place] [address] Sep, [facility] [place] [facility] [address] [id number] [place] [address]- 8774 Aug, [facility] [place] [facility] [address] [id number] [place] [address]- 9915 Aug, [facility] [place] [facility] [address] [id number] [place] [address]- 2866 Aug, [facility] [place] [facility] [address] [id number] [place] [address]- 9821 Aug, [facility] [place] [facility] [address] [id number] [place] [address]- 3769 Aug, [facility] [place] [facility] [address] [id number] [place] [address]- 7267 Aug, [facility] [place] [facility] [address] [id number] [place] [address]- 6047 Aug, [facility] [place] [facility] [address] [id number] [place] [address]- 9897 Aug, [facility] [place] [facility] [address] [id number] [place] [address]- 5643 Aug, [facility] [place] [facility] [address] [id number] [place] [address]- 9172 Aug, [facility] [place] [facility] [address] [id number] [place] [address]- 4528 Jul, [facility] [place] [facility] [address] [id number] [place] [address] Jul, [facility] [place] [facility] [address] [id number] [place] [address]- 5293 Jul, [facility] [place] [facility] [address] [id number] [place] [address]- 4098 Jul, [facility] [place] [facility] [address] [id number] [place] [address] Jul, [facility] [place] [facility] [address] [id number] [place] [address]- 8610 Jul, [facility] [place] [facility] [address] [id number] [place] [address]- 1133 Jul, [facility] [place] [facility] [address] [id number] [place] [address]- 4041 Jul, [facility] [place] [facility] [address] [id number] [place] [address]- 2680 Jul, [facility] [place] [facility] [address] [id number] [place] [address]- 9236 Jul, [facility] [place] [facility] [address] [id number] [place] [address]- 7913 Jul, [facility] [place] [facility] [address] [id number] [address]- 1930 May, [facility] [place] [facility] [address] [id number] [place] [address]- 1952 May, [facility] [place] [facility] [address] [id number] [place] [address]- 3776 Apr, [facility] [place] [facility] [address] [id number] [address]- 2080 Apr, [facility] [place] [facility] [address] [id number] [address]- 2857 Jan, [facility] [place] [facility] [address] [id number] [place] [address]- 7304 Jan, [facility] [place] [facility] [address] [id number] [place] [address]- 1170 Oct, [facility] [place] [facility] [address] [id number] [place] [address]- 4599 Oct, [facility] [place] [facility] [address] [id number] [place] [address]- 2565 Sep, [facility] [place] [facility] [address] [id number] [place] [address]- 7784 Sep, [facility] [place] [facility] [address] [id number] [place] [address]- 3002 Sep, [facility] [place] [facility] [address] [id number] [place] [address]- 5897 Sep, [facility] [place] [facility] [address] [id number] [place] [address]- 1202 Sep, [facility] [place] [facility] [address] [id number] [place] [address]- 1340 Sep, [facility] [place] [facility] [address] [facility] [id number] [place] [address]- 5671 Aug, [facility] [place] [facility] [address] [id number] [place] [address]- 6235 Aug, [facility] [place] [facility] [address] [id number] [place] [address]- 3178 Jun, [facility] [place] [facility] [address] [id number] [place] [address]- 3097 Jun, [facility] [place] [facility] [address] [id number] [place] [address]- 6815 Jun, [facility] [place] [facility] [address] [id number] [place] [address]- 4005 Jun, [facility] [address] [address] [id number] [address]- 2546 Jun, [facility] [address], [place] [address] 2546 Jun, [facility] [address] [address] 2546 May, [facility] [id number] [place] [address] 61881- 2546 May, [facility] [address], [place] [address]- 2546 Mar, [facility] [id number] [place] [address] 61042 2546 Mar, [facility] [address], [place] [address] 2546 December, [facility] [address], [place] [address] 2546 December, IMMUNIZATIONS No Known Immunizations SOCIAL HISTORY Never Assessed REASON FOR VISIT Depression---Leo, had talked about starting medications at last visit, pt declined, but is ready to start now PLAN OF CARE Activity Details Follow Up 4 Weeks Reason:f/u depression VITAL SIGNS Height 67 in 2017-04-06 Weight 254 lbs 2017-04-06 Temperature 99.1 degrees Fahrenheit 2017-04-06 Heart Rate 90 bpm 2017-04-06 Respiratory Rate 20 2017-04-06 BMI 39.78 kg/m2 2017-04-06 Blood pressure systolic 152 mmHg 2017-04-06 Blood pressure diastolic 102 mmHg 2017-04-06 MEDICATIONS Medication Instructions Dosage Frequency Start Date End Date Duration Status Venlafaxine HCl 25 MG Orally Once a day 1 tablet with food 24h Mar, 30 day(s) Active RESULTS No Results PROCEDURES [...]
--- OUTSIDE RECORDS SUMMARY | 2018-07-03 21:26 | XMS REPORT ---
Author Author DARWIN PURDY Organization [facility] Address [address] [place] [address] Care Team Providers Care Blade Aligner Name Role Phone DARWIN PURDY Unavailable PROBLEMS Type Condition ICD9-CM Code [id number] Code Onset Dates Condition Status SNOMED Code Problem Severe single current episode of major depressive disorder, 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 Active 88263907 Problem Morbid (severe) obesity due to excess calories E66.01 Active 440100941 ALLERGIES No Known Allergies ENCOUNTERS Encounter Location Date Diagnosis [place] [id number] [place] [address] 84176- 5173 Oct, Nausea R11.0 ; Epigastric abdominal pain R10.13 and BMI 40.0 -44.9, adult Z68.41 [place] [id number] [place] [address] 33323- 4949 Oct, [place] [id number] [place] [address] 90809- 1634 Aug, Severe single current episode of major depressive disorder, 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 ; BMI 40.0-44.9, adult Z68.41 ; Fatigue, unspecified type R53.83 ; Other viral agents as the cause of diseases classified elsewhere B97.89 and Acute upper respiratory infection, unspecified J06.9 [place] [id number] [place] [address] 35167- 0572 Jul, BMI 40.0-44.9, adult Z68.41 and Severe single current episode of major depressive disorder, 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 [place] [address] [place] [address] 63273- 4817 Jun, Severe single current episode of major depressive disorder, 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 [place] [address] [place] [address] 16084- 7871 May, Severe single current episode of major depressive disorder, 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 and Cough R05 [place] [id number] [place] [address] 04941- 6893 Apr, Severe single current episode of major depressive disorder, 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 [place] [id number] [place] [address] 11012- 3442 Mar, Severe single current episode of major depressive disorder, 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 [place] [id number] [place] [address] 92642- 8274 Feb, Encounter for routine adult health examination with abnormal findings Z00.01 ; Morbid (severe) obesity due to excess calories E66.01 and Exposure to hepatitis C Z20.5 [place] [id number] [place] [address] 48710- 7011 Feb, Encounter for routine adult health examination with abnormal findings Z00.01 ; Morbid (severe) obesity due to excess calories E66.01 ; Exposure to hepatitis C Z20.5 and Moderate episode of recurrent major depressive disorder F33.1 [place] [id number] [place] [address] 61853- 4634 Jan, Acute seasonal allergic rhinitis due to pollen J30.1 [place] [id number] [place] [address] 72900- 8765 Sep, Acute suppurative otitis media of right ear without spontaneous rupture of tympanic membrane, recurrence not specified H66.001 and Acute pain of right shoulder M25.511 [facility] [id number] [place] [address] 99053 -1476 Jul, Vaginal discharge N89.8 and Vaginal candidiasis B37.3 [place] [id number] [place] [address] 69477- 7871 May, Eustachian tube dysfunction, left H69.82 [place] [address] [place] [id number] [address]- 6652 Apr, Bronchitis J40 and Tobacco abuse counseling Z71.6 [facility] [address] 18120- 0314 Oct, URI (upper respiratory infection) J06.9 ; HTN (hypertension ) I10 and Obesity E66.9 [facility] [address] 93342 -6619 Oct, Pharyngitis J02.9 and Sore throat J02.9 [facility] [address] 04629- 9134 May, Cough due to bronchospasm J98.01 [facility] [address] 67265- 4955 May, Pneumonia J18.9 and Elevated blood pressure (not hypertension) R03.0 [facility] [address] 99824- 7087 Nov, [facility] [id number] [place] [address] 35050- 5487 Nov, [facility] [id number] [place] [address] 56837- 7651 Sep, [facility] [id number] [place] [address] 87892- 5475 Sep, [facility] [id number] [place] [address] 04539- 7466 Sep, [facility] [id number] [place] [address] 34113- 1293 Sep, [facility] [address] 35124- 1902 Aug, [facility] [id number] [place] [address] 92758- 2602 Aug, [facility] [address] [place] [address]- 9670 Aug, [facility] [address] [id number] [place] [address]- 3159 Aug, [facility] [place] [facility] [address] [id number] [place] [address]- 1233 Aug, [facility] [place] [facility] [address] [id number] [place] [address]- 7732 Aug, [facility] [place] [facility] [address] [id number] [place] [address]- 9650 Aug, [facility] [place] [facility] [address] [id number] [place] [address]- 2129 Aug, [facility] [place] [facility] [address] [id number] [place] [address]- 0975 Aug, [facility] [place] [facility] [address] [id number] [place] [address]- 5482 Aug, [facility] [place] [facility] [address] [id number] [place] [address]- 9751 Jul, [facility] [place] [facility] [address] [id number] [place] [address]- 0280 Jul, [facility] [place] [facility] [address] [id number] [place] [address]- 3017 Jul, [facility] [place] [facility] [address] [id number] [place] [address]- 2116 Jul, [facility] [place] [facility] [address] [id number] [place] [address]- 8498 16 Jul, 2014 [facility] [place] [facility] [address] [id number] [place] [address]- 5133 Jul, [facility] [place] [facility] [address] [id number] [place] [address]- 1889 Jul, [facility] [place] [facility] [address] [id number] [place] [address]- 9490 10 Jul, 2014 [facility] [place] [facility] [address] [id number] [place] [address]- 8549 Jul, [facility] [place] [facility] [address] [id number] [place] [address]- 7629 Jul, [facility] [place] [facility] [address] [id number] [place] [address]- 2989 Jul, [facility] [place] [facility] [address] [id number] [place] [address]- 5938 May, [facility] [place] [facility] [address] [id number] [place] [address]- 5855 May, [facility] [place] [facility] [address] [id number] [place] [address]- 8933 Apr, [facility] [place] [facility] [address] [facility] [id number] [place] [address]- 6793 Apr, [facility] [place] [facility] [address] [facility] [id number] [place] [address]- 0648 Jan, [facility] [place] [facility] [address] [facility] [id number] [place] [address]- 0187 Jan, [facility] [place] [facility] [address] [facility] [id number] [place] [address]- 3515 Oct, [facility] [place] [facility] [address] [facility] [id number] [place] [address]- 8686 Oct, [facility] [place] [facility] [address] [facility] [id number] [address]- 5262 Sep, [facility] [place] [facility] [address] [id number] [place] [address]- 3947 Sep, [facility] [place] [facility] [address] [id number] [place] [address]- 1444 Sep, [facility] [place] [facility] [address] [facility] [id number] [place] 8310 Sep, [facility] [place] [facility] [address] [facility] [id number] [address]- 5767 Sep, [facility] [address] [facility] [id number] [place] [address]- 5562 Sep, [facility] [address] [facility] [id number] [address]- 6778 Aug, [facility] [address] [facility] [id number] [place] [address]- 4047 Aug, [facility] [address] [facility] [id number] [place] [address]- 0874 Jun, [facility] [address] [facility] [id number] [place] 1148 Jun, [facility] [address] [facility] [id number] [address]- 9389 Jun, [facility] [address] [address] [id number] [address]- 7419 Jun, [facility] [address] [facility] [id number] [address]- 8031 Jun, [facility] [address] [facility] [id number] [address]- 7319 Jun, [facility] [address] [facility] [id number] [address]- 6291 May, [facility] [address] [facility] [id number] [address]- 2375 May, [facility] [address] [facility] [id number] [address]- 2766 Mar, [facility] [address] [facility] [id number] [address]- 4890 Mar, [facility] [address] [facility] [id number] [address]- 1484 December, [facility] [address] [facility] [id number] [address]- 3428 December, IMMUNIZATIONS No Known Immunizations SOCIAL HISTORY Never Assessed REASON FOR VISIT Establish Care lenore sims PLAN OF CARE Activity Details Follow Up 4 Weeks Reason:F/u labs VITAL SIGNS Height 67 in 2017-02-12 Weight 258.2 lbs 2017-02-12 Temperature 97.0 degrees Fahrenheit 2017-02-12 Heart Rate 76 bpm 2017-02-12 Respiratory Rate 20 2017-02-12 BMI 40.44 kg/m2 2017-02-12 Blood pressure systolic 130 mmHg 2017-02-12 Blood pressure diastolic 76 mmHg 2017-02-12 MEDICATIONS No Known Medications RESULTS No Results PROCEDURES No Known procedures [...]
--- OUTSIDE RECORDS SUMMARY | 2018-07-03 21:27 | XMS REPORT | Continuity of Care Document ---
Author Author [facility] Address Unknown Phone Unavailable Allergies Active Description Code Type Severity Reaction Onset Reported/Identified Relationship to Patient Clinical Status Yes No Known Drug Allergies [id number] Drug Allergy Unknown N/A 04/14/2008 Medications There is no data. Problems Date Dx Coded Attending Type Code Diagnosis Diagnosed By 05/09/2011 Ot 623.8 05/09/2011 Ot 626.8 01/04/2013 844.9 SPRAIN OF UNSPECIFIED SITE OF KNEE AND LEG 01/04/2013 844.9 SPRAIN OF UNSPECIFIED SITE OF KNEE AND LEG 01/04/2013 JA HARRIS DO K 844.9 SPRAIN OF UNSPECIFIED SITE OF KNEE AND LEG 01/04/2013 JA HARRIS DO K 844.9 SPRAIN OF UNSPECIFIED SITE OF KNEE AND LEG 01/04/2013 JA HARRIS DO K 844.9 SPRAIN OF UNSPECIFIED SITE OF KNEE AND LEG 01/04/2013 JA HARRIS DO K 844.9 SPRAIN OF UNSPECIFIED SITE OF KNEE AND LEG 01/04/2013 MARYLOU ALVAREZ APRNINA R 844.9 SPRAIN OF UNSPECIFIED SITE OF KNEE AND LEG 01/04/2013 OBIE SRIVASTAVA APRN A 844.9 SPRAIN OF UNSPECIFIED SITE OF KNEE AND LEG 01/04/2013 OBIE SRIVASTAVA APRN A 844.9 SPRAIN OF UNSPECIFIED SITE OF KNEE AND LEG 01/04/2013 ELINOR NUÑEZ APRN R 844.9 SPRAIN OF UNSPECIFIED SITE OF KNEE AND LEG 01/04/2013 BRETT SOTO MD 844.9 SPRAIN OF UNSPECIFIED SITE OF KNEE AND LEG 01/04/2013 KIM GUPTA, ROHIT R 844.9 SPRAIN OF UNSPECIFIED SITE OF KNEE AND LEG 01/04/2013 KIM GUPTA, ROHIT R 844.9 SPRAIN OF UNSPECIFIED SITE OF KNEE AND LEG 01/04/2013 KIM GUPTA, ROHIT R 844.9 SPRAIN OF UNSPECIFIED SITE OF KNEE AND LEG 01/04/2013 KIM FORRESTN, ROHIT R 844.9 SPRAIN OF UNSPECIFIED SITE OF KNEE AND LEG 01/04/2013 KIM FORRESTN, ROHIT R 844.9 SPRAIN OF UNSPECIFIED SITE OF KNEE AND LEG 01/04/2013 KAYLA SALDANA APRN 844.9 SPRAIN OF UNSPECIFIED SITE OF KNEE AND LEG 01/04/2013 KAYLA SALDANA APRN 844.9 SPRAIN OF UNSPECIFIED SITE OF KNEE AND LEG 04/01/2013 719.42 PAIN IN JOINT INVOLVING UPPER ARM 04/01/2013 782.0 DISTURBANCE OF SKIN SENSATION 04/01/2013 HARRIS DO, JA K 719.42 PAIN IN JOINT INVOLVING UPPER ARM 04/01/2013 HARRIS DO, JA K 782.0 DISTURBANCE OF SKIN SENSATION 04/01/2013 HARRIS DO, JA K 719.42 PAIN IN JOINT INVOLVING UPPER ARM 04/01/2013 HARRIS DO, JA K 782.0 DISTURBANCE OF SKIN SENSATION 04/01/2013 HARRIS DO, JA K 719.42 PAIN IN JOINT INVOLVING UPPER ARM 04/01/2013 HARRIS DO, JA K 782.0 DISTURBANCE OF SKIN SENSATION 04/01/2013 HARRIS DO, AJ K 719.42 PAIN IN JOINT INVOLVING UPPER ARM 04/01/2013 HARRIS DO, JA K 782.0 DISTURBANCE OF SKIN SENSATION 04/01/2013 MARYLOU ALVAREZ APRNINA R 719.42 PAIN IN JOINT INVOLVING UPPER ARM 04/01/2013 KIM GUPTA ROHIT R 782.0 DISTURBANCE OF SKIN SENSATION 04/01/2013 OBIE SRIVASTAVA APRN A 719.42 PAIN IN JOINT INVOLVING UPPER ARM 04/01/2013 MAN SRIVASTAVA APRNIDI A 782.0 DISTURBANCE OF SKIN SENSATION 04/01/2013 MAN SRIVASTAVA APRNIDI A 719.42 PAIN IN JOINT INVOLVING UPPER ARM 04/01/2013 MAN SRIVASTAVA APRNIDI A 782.0 DISTURBANCE OF SKIN SENSATION 04/01/2013 ELINOR NUÑEZ APRN 719.42 PAIN IN JOINT INVOLVING UPPER ARM 04/01/2013 ELINOR NUÑEZ APRN R 782.0 DISTURBANCE OF SKIN SENSATION 04/01/2013 BRETT SOTO MD 719.42 PAIN IN JOINT INVOLVING UPPER ARM 04/01/2013 BRITTANY KEARNEY, BRETT 782.0 DISTURBANCE OF SKIN SENSATION 04/01/2013 KIM BINDER LOCKSTITCH, ROHIT R 719.42 PAIN IN JOINT INVOLVING UPPER ARM 04/01/2013 KIM BINDER LOCKSTITCH, ROHIT R 782.0 DISTURBANCE OF SKIN SENSATION 04/01/2013 KIM BINDER LOCKSTITCH, ROHIT R 719.42 PAIN IN JOINT INVOLVING UPPER ARM 04/01/2013 KIM BINDER LOCKSTITCH, ROHIT R 782.0 DISTURBANCE OF SKIN SENSATION 04/01/2013 KIM BINDER LOCKSTITCH, ROHIT R 719.42 PAIN IN JOINT INVOLVING UPPER ARM 04/01/2013 KIM BINDER LOCKSTITCH, ROHIT R 782.0 DISTURBANCE OF SKIN SENSATION 04/01/2013 KIM BINDER LOCKSTITCH, ROHIT R 719.42 PAIN IN JOINT INVOLVING UPPER ARM 04/01/2013 KIM BINDER LOCKSTITCH, ROHIT R 782.0 DISTURBANCE OF SKIN SENSATION 04/01/2013 KIM BINDER LOCKSTITCH, ROHIT R 719.42 PAIN IN JOINT INVOLVING UPPER ARM 04/01/2013 KIM BINDER LOCKSTITCH, ROHIT R 782.0 DISTURBANCE OF SKIN SENSATION 04/01/2013 KAYLA SALDANA APRN 719.42 PAIN IN JOINT INVOLVING UPPER ARM 04/01/2013 KAYLA SALDANA APRN 782.0 DISTURBANCE OF SKIN SENSATION 04/01/2013 KAYLA SALDANA APRN 719.42 PAIN IN JOINT INVOLVING UPPER ARM 04/01/2013 KAYLA SALDANA APRN 782.0 DISTURBANCE OF SKIN SENSATION 06/03/2013 HARRIS DO, JA K 462 ACUTE PHARYNGITIS 06/03/2013 HARRIS DO, JA K 709.09 OTHER DYSCHROMIA 06/03/2013 HARRIS DO, JA K 786.2 COUGH 06/03/2013 HARRIS DO, JA K 462 ACUTE PHARYNGITIS 06/03/2013 HARRIS DO, JA K 709.09 OTHER DYSCHROMIA 06/03/2013 HARRIS DO, JA K 786.2 COUGH 06/03/2013 HARRIS DO, JA K 462 ACUTE PHARYNGITIS 06/03/2013 HARRIS DO, JA K 709.09 OTHER DYSCHROMIA 06/03/2013 HARRIS DO, JA K 786.2 COUGH 06/03/2013 HARRIS DO, JA K 462 ACUTE PHARYNGITIS 06/03/2013 HARRIS DO, JA K 709.09 OTHER DYSCHROMIA 06/03/2013 HARRIS DO, JA K 786.2 COUGH 06/03/2013 KIM GUPTA, ROHIT R 462 ACUTE PHARYNGITIS 06/03/2013 KIM FORRESTN, ROHIT R 709.09 OTHER DYSCHROMIA 06/03/2013 KIM FORRESTN, ROHIT R 786.2 COUGH 06/03/2013 ATIF BINDER LOCKSTITCH, OBIE A 462 ACUTE PHARYNGITIS 06/03/2013 ATIF BINDER LOCKSTITCH, OBIE A 709.09 OTHER DYSCHROMIA 06/03/2013 ATIF BINDER LOCKSTITCH, OBIE A 786.2 COUGH 06/03/2013 ATIF BINDER LOCKSTITCH, OBIE A 462 ACUTE PHARYNGITIS 06/03/2013 ATIF BINDER LOCKSTITCH, OBIE A 709.09 OTHER DYSCHROMIA 06/03/2013 ATIF BINDER LOCKSTITCH, OBIE A 786.2 COUGH 06/03/2013 MARIELLE NUÑEZ APRNIA R 462 ACUTE PHARYNGITIS 06/03/2013 JOAQUIN GUPTA ELINOR R 709.09 OTHER DYSCHROMIA 06/03/2013 JOAQUIN GUPTA, ELINOR R 786.2 COUGH 06/03/2013 BRETT SOTO MD 46Gaetano ACUTE PHARYNGITIS 06/03/2013 BRETT SOTO MD 709.09 OTHER DYSCHROMIA 06/03/2013 BRETT SOTO MD 786.2 COUGH 06/03/2013 KIM GUPTA ROHIT R 462 ACUTE PHARYNGITIS 06/03/2013 KIM GUPTA, ROHIT R 709.09 OTHER DYSCHROMIA 06/03/2013 KIM GUPTA, ROHIT R 786.2 COUGH 06/03/2013 KIM GUPTA, ROHIT R 462 ACUTE PHARYNGITIS 06/03/2013 KIM GUPTA, ROHIT R 709.09 OTHER DYSCHROMIA 06/03/2013 KIM GUPTA, ROHIT R 786.2 COUGH 06/03/2013 KIM GUPTA, ROHIT R 462 ACUTE PHARYNGITIS 06/03/2013 KIM GUPTA, ROHIT R 709.09 OTHER DYSCHROMIA 06/03/2013 KIM GUPTA, ROHIT R 786.2 COUGH 06/03/2013 KIM BINDER LOCKSTITCH, ROHIT R 462 ACUTE PHARYNGITIS 06/03/2013 KIM BINDER LOCKSTITCH, ROHIT R 709.09 OTHER DYSCHROMIA 06/03/2013 KIM BINDER LOCKSTITCH, ROHIT R 786.2 COUGH 06/03/2013 KIM BINDER LOCKSTITCH, ROHIT R 462 ACUTE PHARYNGITIS 06/03/2013 KIM BINDER LOCKSTITCH, ROHIT R 709.09 OTHER DYSCHROMIA 06/03/2013 KIM GUPTA, ROHIT R 786.2 COUGH 06/03/2013 KAYLA SALDANA APRN 462 ACUTE PHARYNGITIS 06/03/2013 KAYLA SALDANA APRN 709.09 OTHER DYSCHROMIA 06/03/2013 KAYLA SALDANA APRN 786.2 COUGH 06/03/2013 KAYLA SALDANA APRN 462 ACUTE PHARYNGITIS 06/03/2013 KAYLA SALDANA APRN 709.09 OTHER DYSCHROMIA 06/03/2013 KAYLA SALDANA APRN 786.2 COUGH 06/20/2013 HARRIS DO, JA K 354.0 CARPAL TUNNEL SYNDROME 06/20/2013 HARRIS DO, JA K 727.04 RADIAL STYLOID TENOSYNOVITIS 06/20/2013 HARRIS DO, JA K 354.0 CARPAL TUNNEL SYNDROME 06/20/2013 HARRIS DO, JA K 727.04 RADIAL STYLOID TENOSYNOVITIS 06/20/2013 HARRIS DO, JA K 354.0 CARPAL TUNNEL SYNDROME 06/20/2013 HARRIS DO, JA K 727.04 RADIAL STYLOID TENOSYNOVITIS 06/20/2013 KIM GUPTA, ROHIT R 354.0 CARPAL TUNNEL SYNDROME 06/20/2013 KIM FORRESTN, ROHIT R 727.04 RADIAL STYLOID TENOSYNOVITIS 06/20/2013 ATIF GUPTA, OBIE A 354.0 CARPAL TUNNEL SYNDROME 06/20/2013 ATIF GUPTA OBIE A 727.04 RADIAL STYLOID TENOSYNOVITIS 06/20/2013 ATIF GUPTA OBIE A 354.0 CARPAL TUNNEL SYNDROME 06/20/2013 ATIF GUPTA, OBIE A 727.04 RADIAL STYLOID TENOSYNOVITIS 06/20/2013 ELINOR NUÑEZ APRN 354.0 CARPAL TUNNEL SYNDROME 06/20/2013 JOAQUIN GUPTA, ELINOR R 727.04 RADIAL STYLOID TENOSYNOVITIS 06/20/2013 BRITTANY KEARNEY, BERTT 354.0 CARPAL TUNNEL SYNDROME 06/20/2013 BRITTANY KEARNEY, BRETT 727.04 RADIAL STYLOID TENOSYNOVITIS 06/20/2013 KIM BINDER LOCKSTITCH, ROHIT R 354.0 CARPAL TUNNEL SYNDROME 06/20/2013 KIM BINDER LOCKSTITCH, ROHIT R 727.04 RADIAL STYLOID TENOSYNOVITIS 06/20/2013 KIM BINDER LOCKSTITCH, ROHIT R 354.0 CARPAL TUNNEL SYNDROME 06/20/2013 KIM BINDER LOCKSTITCH, ROHIT R 727.04 RADIAL STYLOID TENOSYNOVITIS 06/20/2013 KIM BINDER LOCKSTITCH, ROHIT R 354.0 CARPAL TUNNEL SYNDROME 06/20/2013 KIM BINDER LOCKSTITCH, ROHIT R 727.04 RADIAL STYLOID TENOSYNOVITIS 06/20/2013 KIM BINDER LOCKSTITCH, ROHIT R 354.0 CARPAL TUNNEL SYNDROME 06/20/2013 KIM BINDER LOCKSTITCH, ROHIT R 727.04 RADIAL STYLOID TENOSYNOVITIS 06/20/2013 KIM BINDER LOCKSTITCH, ROHIT R 354.0 CARPAL TUNNEL SYNDROME 06/20/2013 KIM BINDER LOCKSTITCH, ROHIT R 727.04 RADIAL STYLOID TENOSYNOVITIS 06/20/2013 SHANA GUPTA, KAYLA D 354.0 CARPAL TUNNEL SYNDROME 06/20/2013 SHANA GUPTA, KAYLA Kessler 727.04 RADIAL STYLOID TENOSYNOVITIS 06/20/2013 SHANA GUPTA, KAYLA D 354.0 CARPAL TUNNEL SYNDROME 06/20/2013 KAYLA SALDANA APRN 727.04 RADIAL STYLOID TENOSYNOVITIS 06/27/2013 HARRIS DO, JA K 709.9 SKIN LESIONS 06/27/2013 HARRIS DO, JA K 709.9 SKIN LESIONS 06/27/2013 KIM FORRESTN, ROHIT R 709.9 SKIN LESIONS 06/27/2013 ATIF GUPTA, OBIE A 709.9 SKIN LESIONS 06/27/2013 ATIF GUPTA, OBIE A 709.9 SKIN LESIONS 06/27/2013 JOAQUIN GUPTA, ELINOR R 709.9 SKIN LESIONS 06/27/2013 BRETT SOTO MD 709.9 SKIN LESIONS 06/27/2013 KIM FORRESTN, ROHIT R 709.9 SKIN LESIONS 06/27/2013 KIM BINDER LOCKSTITCH, ROHIT R 709.9 SKIN LESIONS 06/27/2013 KIM BINDER LOCKSTITCH, ROHIT R 709.9 SKIN LESIONS 06/27/2013 KIM BINDER LOCKSTITCH, ROHIT R 709.9 SKIN LESIONS 06/27/2013 KIM BINDER LOCKSTITCH, ROHIT R 709.9 SKIN LESIONS 06/27/2013 SHANA GUPTA, KAYLA Kessler 709.9 SKIN LESIONS 06/27/2013 SHANA GUPTA, KAYLA Kessler 709.9 SKIN LESIONS 07/02/2013 JA HARRIS DO K 723.1 CERVICALGIA 07/02/2013 KIM BINDER LOCKSTITCH, ROHIT R 723.1 CERVICALGIA 07/02/2013 ATIF BINDER LOCKSTITCH, OBIE A 723.1 CERVICALGIA 07/02/2013 ATIF FORRESTN, OBIE A 723.1 CERVICALGIA 07/02/2013 JOAQUIN GUPTA, ELINOR R 723.1 CERVICALGIA 07/02/2013 BRETT SOTO MD 723.1 CERVICALGIA 07/02/2013 KIM BINDER LOCKSTITCH, ROHIT R 723.1 CERVICALGIA 07/02/2013 KIM BINDER LOCKSTITCH, ROHIT R 723.1 CERVICALGIA 07/02/2013 KIM BINDER LOCKSTITCH, ROHIT R 723.1 CERVICALGIA 07/02/2013 KIM BINDER LOCKSTITCH, ROHIT R 723.1 CERVICALGIA 07/02/2013 KIM BINDER LOCKSTITCH, ROHIT R 723.1 CERVICALGIA 07/02/2013 KAYLA SALDANA APRN 723.1 CERVICALGIA 07/02/2013 KAYLA SALDANA APRN 723.1 CERVICALGIA 09/27/2013 ATIF BINDER LOCKSTITCH, OBIE A 625.9 PELVIC PAIN 09/27/2013 ATIF BINDER LOCKSTITCH, OBIE A V74.5 STD SCREEN 09/27/2013 ATIF BINDER LOCKSTITCH, OBIE A 625.9 PELVIC PAIN 09/27/2013 ATIF FORRESTN, OBIE A V74.5 STD SCREEN 09/27/2013 JOAQUIN GUPTA, ELINOR R 625.9 PELVIC PAIN 09/27/2013 JOAQIUN GUPTA, ELINOR R V74.5 STD SCREEN 09/27/2013 BRETT SOTO MD 625.9 PELVIC PAIN 09/27/2013 HUERTER MD, BRETT V74.5 STD SCREEN 09/27/2013 KIM BINDER LOCKSTITCH, ROHIT R 625.9 PELVIC PAIN 09/27/2013 KIM BINDER LOCKSTITCH, ROHIT R V74.5 STD SCREEN 09/27/2013 KIM BINDER LOCKSTITCH, ROHIT R 625.9 PELVIC PAIN 09/27/2013 KIM BINDER LOCKSTITCH, ROHIT R V74.5 STD SCREEN 09/27/2013 KIM BINDER LOCKSTITCH, ROHIT R 625.9 PELVIC PAIN 09/27/2013 KIM BINDER LOCKSTITCH, ROHIT R V74.5 STD SCREEN 09/27/2013 KIM BINDER LOCKSTITCH, ROHIT R 625.9 PELVIC PAIN 09/27/2013 KIM BINDER LOCKSTITCH, ROHIT R V74.5 STD SCREEN 09/27/2013 KIM BINDER LOCKSTITCH, ROHIT R 625.9 PELVIC PAIN 09/27/2013 KIM BINDER LOCKSTITCH, ROHIT R V74.5 STD SCREEN 09/27/2013 SALDANA BINDER LOCKSTITCHKAYLA Avila 625.9 PELVIC PAIN 09/27/2013 SALDANA BINDER LOCKSTITCHARTURO AvilaON D V74.5 STD SCREEN 09/27/2013 KAYLA SALDANA APRN 625.9 PELVIC PAIN 09/27/2013 SALDANA BINDER LOCKSTITCHARTURO AvilaON D V74.5 STD SCREEN 01/26/2014 ELINOR NUÑEZ APRN R 719.47 PAIN IN JOINT INVOLVING ANKLE AND FOOT 01/26/2014 JOAQUIN GUPTA ELINOR R 727.49 OTHER GANGLION AND CYST OF SYNOVIUM TENDON AND BURSA 01/26/2014 BRETT SOTO MD 719.47 PAIN IN JOINT INVOLVING ANKLE AND FOOT 01/26/2014 BRETT SOTO MD 727.49 OTHER GANGLION AND CYST OF SYNOVIUM TENDON AND BURSA 01/26/2014 KIM GUPTA ROHIT R 719.47 PAIN IN JOINT INVOLVING ANKLE AND FOOT 01/26/2014 KIM BINDER LOCKSTITCH ROHIT R 727.49 OTHER GANGLION AND CYST OF SYNOVIUM TENDON AND BURSA 01/26/2014 KIM FORRESTN ROHIT R 719.47 PAIN IN JOINT INVOLVING ANKLE AND FOOT 01/26/2014 KIM BINDER LOCKSTITCH ROHIT R 727.49 OTHER GANGLION AND CYST OF SYNOVIUM TENDON AND BURSA 01/26/2014 KIM FORRESTN ROHIT R 719.47 PAIN IN JOINT INVOLVING ANKLE AND FOOT 01/26/2014 KIM GUPTA ROHIT R 727.49 OTHER GANGLION AND CYST OF SYNOVIUM TENDON AND BURSA 01/26/2014 KIM BINDER LOCKSTITCH, ROHIT R 719.47 PAIN IN JOINT INVOLVING ANKLE AND FOOT 01/26/2014 KIM BINDER LOCKSTITCH, ROHIT R 727.49 OTHER GANGLION AND CYST OF SYNOVIUM TENDON AND BURSA 01/26/2014 KIM BINDER LOCKSTITCH, ROHIT R 719.47 PAIN IN JOINT INVOLVING ANKLE AND FOOT 01/26/2014 KIM FORRESTN, ROHIT R 727.49 OTHER GANGLION AND CYST OF SYNOVIUM TENDON AND BURSA 01/26/2014 KAYLA SALDANA APRN 719.47 PAIN IN JOINT INVOLVING ANKLE AND FOOT 01/26/2014 KAYLA SALDANA APRN 727.49 OTHER GANGLION AND CYST OF SYNOVIUM TENDON AND BURSA 01/26/2014 KAYLA SALDANA APRN 719.47 PAIN IN JOINT INVOLVING ANKLE AND FOOT 01/26/2014 KAYLA SALDANA APRN 727.49 OTHER GANGLION AND CYST OF SYNOVIUM TENDON AND BURSA 04/18/2014 BRITTANY KEARNEY, BRETT 466.0 ACUTE BRONCHITIS 04/18/2014 KIM FORRESTN, ROHIT R 466.0 ACUTE BRONCHITIS 04/18/2014 KIM FORRESTN, ROHIT R 466.0 ACUTE BRONCHITIS 04/18/2014 KIM FORRESTN, ROHIT R 466.0 ACUTE BRONCHITIS 04/18/2014 KIM FORRESTN, ROHIT R 466.0 ACUTE BRONCHITIS 04/18/2014 KIM FORRESTN, ROHIT R 466.0 ACUTE BRONCHITIS 04/18/2014 KAYLA SALDANA APRN 466.0 ACUTE BRONCHITIS 04/18/2014 KAYLA SALDANA APRN 466.0 ACUTE BRONCHITIS 05/18/2014 KIM FORRESTN, ROHIT R 726.31 MEDIAL EPICONDYLITIS ELBOW REGION 05/18/2014 KIM FORRESTN, ROHIT R 726.31 MEDIAL EPICONDYLITIS ELBOW REGION 05/18/2014 KIM FORRESTN, ROHIT R 726.31 MEDIAL EPICONDYLITIS ELBOW REGION 05/18/2014 KIM FORRESTN, ROHIT R 726.31 MEDIAL EPICONDYLITIS ELBOW REGION 05/18/2014 KIM FORRESTN, ROHIT R 726.31 MEDIAL EPICONDYLITIS ELBOW REGION 05/18/2014 KAYLA SALDANA APRN 726.31 MEDIAL EPICONDYLITIS ELBOW REGION 05/18/2014 KAYLA SALDANA APRN 726.31 MEDIAL EPICONDYLITIS [place] REGION 07/14/2014 KIM GUPTA, ROHIT R 356.9 UNSPECIFIED IDIOPATHIC PERIPHERAL NEUROPATHY 07/14/2014 MARYLOU ALVAREZ APRNINA R 356.9 UNSPECIFIED IDIOPATHIC PERIPHERAL NEUROPATHY 07/14/2014 MARYLOU ALVAREZ APRNINA R 356.9 UNSPECIFIED IDIOPATHIC PERIPHERAL NEUROPATHY 07/14/2014 MARYLOU ALVAREZ APRNINA R 356.9 UNSPECIFIED IDIOPATHIC PERIPHERAL NEUROPATHY 07/14/2014 KAYLA SALDANA APRN 356.9 UNSPECIFIED IDIOPATHIC PERIPHERAL NEUROPATHY 07/14/2014 KAYLA SALDANA APRN 356.9 UNSPECIFIED IDIOPATHIC PERIPHERAL NEUROPATHY 07/26/2014 KAYLIE RAMIREZ APRN Ot 785.1 08/01/2014 ROHIT ALVAREZ APRN R V70.0 ROUTINE GENERAL MEDICAL EXAMINATION AT A HEALTH CARE FACILITY 08/01/2014 ROHIT ALVAREZ APRN R V70.0 ROUTINE GENERAL MEDICAL EXAMINATION AT A HEALTH CARE FACILITY 08/01/2014 ROHIT ALVAREZ APRN R V70.0 ROUTINE GENERAL MEDICAL EXAMINATION AT A HEALTH CARE FACILITY 08/01/2014 KAYLA SALDANA APRN V70.0 ROUTINE GENERAL MEDICAL EXAMINATION AT A HEALTH CARE FACILITY 08/01/2014 KAYLA SALDANA APRN V70.0 ROUTINE GENERAL MEDICAL EXAMINATION AT A HEALTH CARE FACILITY 09/12/2014 ROHIT ALVAREZ APRN R 272.1 PURE HYPERGLYCERIDEMIA 09/12/2014 KAYLA SALDANA APRN 272.1 PURE HYPERGLYCERIDEMIA 09/12/2014 KAYLA SALDANA APRN 272.1 PURE HYPERGLYCERIDEMIA 09/21/2014 KAYLA SALDANA APRN 354.2 LESION OF ULNAR NERVE 09/21/2014 KAYLA SALDANA APRN 354.2 LESION OF ULNAR NERVE 12/25/2014 ROHIT ALVAREZ APRN Ot 719.42 12/25/2014 OBIE SRIVASTAVA APRN Ot 625.9 12/28/2014 KAYLIE RAMIREZ APRN Ot 784.0 12/30/2014 SUZE TAYLOR DO Ot 789.01 Procedures Code Description [place] [address] MRI EXTREMITY JOINT, UPPER RIGHT, W/O CONTRAST 07/02/2013 50933 INFLUENZA A & B (IN-HOUSE) 08/31/2013 84235 GC/CHLAM PROBE (STATE) 09/27/2013 15899 UA W/ CULTURE IF INDICATED 09/27/2013 50005 TEST, URINE (IN- HOUSE) 09/27/2013 78178 TRICHOMONAS (IN-HOUSE) 09/27/2013 48406 CULTURE UROGENITAL 09/29/2013 34838 PAP SMEAR 10/04/2013 16330 US PELVIC COMPL (REFLEX CPT - 74541) 10/05/2013 69548 UA LONG DIP 10/05/2013 01639 TEST, URINE (IN- HOUSE) 10/05/2013 64414 XRAY FOREARM RIGHT 2 VIEWS 08/07/2014 Results Test Result Range CBC With Differential/Platelet - 04/18/16 10:41 WBC 10.7 x10E3/uL 3.4-10.8 RBC 5.23 x10E6/uL 3.77-5.28 Hemoglobin 14.6 g/dL 11.1-15.9 Hematocrit 44.3 % 34.0-46.6 MCV 85 fL 79-97 MCH 27.9 pg 26.6-33.0 MCHC 33.0 g/dL 31.5-35.7 RDW 14.7 % 12.3-15.4 Platelets 166 x10E3/uL 150-379 Neutrophils 73 % Lymphs 17 % Monocytes 7 % Eos 3 % Basos 0 % Neutrophils (Absolute) 7.8 x10E3/uL 1.4-7.0 Lymphs (Absolute) 1.8 x10E3/uL 0.7-3.1 Monocytes(Absolute) 0.7 x10E3/uL 0.1-0.9 Eos (Absolute) 0.3 x10E3/uL 0.0-0.4 Baso (Absolute) 0.0 x10E3/uL 0.0-0.2 Immature Granulocytes 0 % Immature Grans (Abs) 0.0 x10E3/uL 0.0-0.1 Pap Lb, rfx HPV ASCU - 08/09/16 08:05 DIAGNOSIS: Comment Specimen adequacy: Comment Clinician provided ICD10: Comment Performed by: Comment . . Pathologist provided ICD10: Comment Note: Comment . Comment Genital Culture, Routine - 08/09/16 08:05 Genital Culture, Routine Note CBC With Differential/Platelet - 02/13/17 13:06 WBC 9.2 x10E3/uL 3.4-10.8 RBC 5.28 x10E6/uL 3.77-5.28 Hemoglobin 15.4 g/dL 11.1-15.9 Hematocrit 44.8 % 34.0-46.6 MCV 85 fL 79-97 MCH 29.2 pg 26.6-33.0 MCHC 34.4 g/dL 31.5-35.7 RDW 14.4 % 12.3-15.4 Platelets 264 x10E3/uL 150-379 Neutrophils 61 % Lymphs 30 % Monocytes 6 % Eos 3 % Basos 0 % Neutrophils (Absolute) 5.6 x10E3/uL 1.4-7.0 Lymphs (Absolute) 2.8 x10E3/uL 0.7-3.1 Monocytes(Absolute) 0.5 x10E3/uL 0.1-0.9 Eos (Absolute) 0.3 x10E3/uL 0.0-0.4 Baso (Absolute) 0.0 x10E3/uL 0.0-0.2 Immature Granulocytes 0 % Immature Grans (Abs) 0.0 x10E3/uL 0.0-0.1 Comp. Metabolic Panel (14) - 02/13/17 13:06 Glucose, Serum 83 mg/dL 65-99 BUN 10 mg/dL 6-20 Creatinine, Serum 0.73 mg/dL 0.57-1.00 eGFR If NonAfricn Am 110 mL/min/1.73 >59 eGFR If Africn Am 127 mL/min/1.73 >59 BUN/Creatinine Ratio 14 9-23 Sodium, Serum 139 mmol/L 134-144 Potassium, Serum 4.6 mmol/L 3.5-5.2 Chloride, Serum 99 mmol/L 96-106 Carbon Dioxide, Total 22 mmol/L 18-29 Calcium, Serum 9.2 mg/dL 8.7-10.2 Protein, Total, Serum 7.0 g/dL 6.0-8.5 Albumin, Serum 4.2 g/dL 3.5-5.5 Globulin, Total 2.8 g/dL 1.5-4.5 A/G Ratio 1.5 1.2-2.2 Bilirubin, Total 0.6 mg/dL 0.0-1.2 Alkaline Phosphatase, S 65 IU/L 39-117 AST (SGOT) 21 IU/L 0-40 ALT (SGPT) 21 IU/L 0-32 Lipid Panel - 02/13/17 13:06 Cholesterol, Total 206 mg/dL 100-199 Triglycerides 241 mg/dL 0-149 HDL Cholesterol 33 mg/dL >39 VLDL Cholesterol Jose 48 mg/dL 5-40 LDL Cholesterol Calc 125 mg/dL 0-99 Hemoglobin A1c - 02/13/17 13:06 Hemoglobin A1c 5.5 % 4.8-5.6 Thyroid [place] Profile - 02/13/17 13:06 TSH 0.705 uIU/mL 0.450-4.500 THYROID ANALYZER - 08/31/17 11:59 TSH 2.02 mIU/L NRG Encounters ACCT No. Visit Date/Time Discharge Status Pt. Type Provider Facility Loc./Unit Complaint [id number] 11/16/2014 12:25:00 11/16/2014 23:59:59 CLS Outpatient KAYLA SALDANA APRN [id number] 09/21/2014 13:53:00 09/21/2014 23:59:59 CLS Outpatient KAYLA SALDANA APRN [id number] 09/12/2014 10:06:00 09/12/2014 23:59:59 CLS Outpatient ROHIT ALVAREZ APRN [id number] 08/07/2014 16:33:00 08/07/2014 23:59:59 CLS Outpatient ROHIT ALVAREZ APRN [id number] 08/01/2014 09:58:00 08/01/2014 23:59:59 CLS Outpatient ROHIT ALVAREZ APRN [id number] 07/14/2014 13:28:00 07/14/2014 23:59:59 CLS Outpatient ROHIT ALVAREZ APRN [id number] 05/18/2014 11:29:00 05/18/2014 23:59:59 CLS Outpatient ROHIT ALVAREZ APRN [id number] 04/18/2014 11:14:00 04/18/2014 23:59:59 CLS Outpatient BRETT SOTO MD [id number] 01/26/2014 16:28:00 01/26/2014 23:59:59 CLS Outpatient ELINOR NUÑEZ APRN [id number] 10/05/2013 16:29:00 10/05/2013 23:59:59 CLS Outpatient OBIE SRIVASTAVA APRN [id number] 09/27/2013 08:25:00 09/27/2013 23:59:59 CLS Outpatient OBIE SRIVASTAVA APRN [id number] 08/31/2013 09:36:00 08/31/2013 23:59:59 CLS Outpatient ROHIT ALVAREZ APRN [id number] 07/02/2013 13:43:00 07/02/2013 23:59:59 CLS Outpatient JA HARRIS DO [id number] 06/27/2013 16:39:00 06/27/2013 23:59:59 CLS Outpatient JA HARRIS DO [id number] 06/20/2013 16:34:00 06/20/2013 23:59:59 CLS Outpatient JA HARRIS DO [id number] 06/03/2013 14:19:00 06/03/2013 23:59:59 CLS Outpatient JA HARRIS DO [id number] 04/01/2013 11:12:00 Document Registration [id number] 01/04/2013 13:15:00 Document Registration [id number] 08/14/2016 18:05:00 Document Registration [id number] 02/16/2017 14:09:00 Document Registration [id number] 04/19/2016 13:05:00 Document Registration [id number] 12/30/2014 11:25:00 12/30/2014 14:01:00 DIS Emergency SUZE TAYLOR DO [facility] [id number] 12/28/2014 16:28:00 12/28/2014 18:45:00 DIS Emergency KAYLIE RAMIREZ APRN [facility] ER [id number] 07/26/2014 10:53:00 07/26/2014 11:53:00 DIS Emergency KAYLIE RAMIREZ [employer] [facility] ER [id number] 10/11/2013 15:05:00 10/11/2013 23:59:59 CLS Outpatient OBIE SRIVASTAVA APRN [facility] RAD [id number] 07/06/2013 08:27:00 07/06/2013 23:59:59 CLS Outpatient ROHIT ALVAREZ APRN [facility] [id number] 05/09/2011 12:11:00 Document Registration [id number] 08/14/2016 10:05:00 Document Registration [id number] 06/30/2018 18:40:00 06/30/2018 23:59:59 CLS Outpatient CHANDRA KOENIG APRN [facility] [id number] 08/31/2017 10:40:00 Document Registration
--- NOTE | 2018-07-03 22:21 | ED General ---
General Stated Complaint: CONGESTION,EAR INFECTION SYMPTOMS Source of Information: Patient Exam Limitations: No Limitations History of Present Illness Date Seen by Provider: Jul 03, 2018 Time Seen by Provider: 22:19 Initial Comments To ER per private vehicle with reports of nasal congestion, nonproductive cough , chills, wheezing/shortness of breath and ear pain. She was diagnosed by primary care with a double ear infection last week. She was given a prescription for amoxicillin and prednisone but denies any improvement despite taking these. Timing/Duration: 3-4 Days Severity: Moderate Associated Systoms: Cough, Malaise Allergies and Home Medications Allergies Coded Allergies: No Known Drug Allergies (Verified , 04/14/08) Home Medications Butalb/Acetaminophen/Caffeine 1 Each Capsule, 1 EACH PO BID PRN for HEADACHE Prescribed by: KAYLIE RAMIREZ on 12/28/14 1731 Hyoscyamine Sulfate 0.125 Mg/Tab Tab.rapdis, 1-2 EACH PO Q4H PRN for ABDOMINAL PAIN Prescribed by: SUZE TAYLOR on 12/30/14 1318 Pantoprazole Sod 40 Mg Tab, 40 MG PO DAILY Prescribed by: SUZE TAYLOR on 12/30/14 1318 Patient Home Medication List Home Medication List Reviewed: Yes Review of Systems Review of Systems Constitutional: see HPI EENTM: see HPI Respiratory: see HPI, cough Cardiovascular: no symptoms reported Genitourinary: no symptoms reported Musculoskeletal: no symptoms reported Past Vkbeckt-Pwjtac-Viiqmb Hx Patient Social History Recent Foreign Travel: No Contact w/Someone Who Travel: No Seasonal Allergies Seasonal Allergies: No Past Medical History Adenoidectomy, Appendectomy, Gallbladder, Tonsillectomy Reproductive Disorders: No Female Reproductive Disorders: Denies Bipolar, Depression Family Medical History Arthritis 19 FATHER Diabetes mellitus 19 FATHER FH: ovarian cancer 19 MOTHER FH: uterine cancer 19 MOTHER Hypertension 19 FATHER Thyroid disease G8 SISTER No Family History of: AIDS Abdominal aortic aneurysm [place] disease Alcoholism Physical Exam Vital Signs Vital Signs - First Documented 07/03/18 22:30 Pulse Ox 95 O2 Delivery Room Air Capillary Refill : Height, Weight, BMI Height: 5'7" Weight: 270lbs. oz. 122.520562qx; BMI Method:Stated General Appearance: No Apparent Distress, WD/WN, Obese Eyes: Bilateral Eye Normal Inspection, Bilateral Eye PERRL, Bilateral Eye EOMI HEENT: Other (TM bulging bilaterally but only mildly erythematous) Neck: Full Range of Motion, Normal Inspection; No Lymphadenopathy (L), No Lymphadenopathy (R) Respiratory: No Accessory Muscle Use, Wheezing Cardiovascular: Regular Rate, Rhythm, Normal Peripheral Pulses Gastrointestinal: Normal Bowel Sounds, Non Tender, Soft Extremity: Normal Capillary Refill, Normal Inspection Neurologic/Psychiatric: Alert, Oriented x3 Skin: Normal Color, Warm/Dry Progress/Results/Core Measures Suspected Sepsis SIRS Temperature: Pulse: Respiratory Rate: Blood Pressure / Mean: Results/Orders My Orders Orders - KAYLIE RAMIREZ APRN Albuterol/Ipra Inhalation Soln (Duoneb I (07/03/18 22:30) Svn Small Volume Nebulizer (07/03/18 22:18) Chest Pa/Lat (2 View) (07/03/18 22:18) Azithromycin Tablet (Zithromax Tablet) (07/03/18 22:45) Rx-Albuterol Inhaler (Rx-Proair) (07/03/18 22:35) Rx-Acetaminophen/Codeine (Rx-Tylenol #3) (07/03/18 22:45) Medications Given in ED Current Medications Medications Dose Ordered Sig/David Route Start Time Stop Time Status Last Admin Dose Admin Albuterol/ Ipratropium 3 ml ONCE ONCE INH 07/03/18 22:30 07/03/18 22:31 DC 07/03/18 22:30 3 ML Vital Signs/I&O 07/03/18 22:30 Pulse Ox 95 O2 Delivery Room Air Capillary Refill : Departure Impression Primary Impression: Bronchitis Disposition: 01 HOME, SELF-CARE Condition: Stable Departure-Patient Inst. Decision time for Depature: 22:21 [facility]errals: [facility] [place] Primary Care Physician Patient Instructions: Acute Bronchitis, Adult (DC) Add. Discharge Instructions: 1. Use the inhaler 2 puffs every 4 hours and an additional 2 puffs every 2 hours as needed. Follow-up with your doctor on Thursday. Continue taking the steroids and the amoxicillin and and the azithromycin to the amoxicillin. Scripts Azithromycin (Azithromycin) 250 Mg Tablet 250 MG PO DAILY, #4 TAB Prov: KAYLIE RAMIREZ APRN 07/03/18 KAYLIE RAMIREZ APRN Jul 03, 2018 22:21
[2018-07-03] MEDS ORDERED: RT-ALBUTEROL/IPRATROPIUM 3 ML (DUONEB) VIAL INH ONE (22:30)
[2018-07-03] MEDS ORDERED: RX-ALBUTEROL INHALER (PROAIR) 8 GM IH STA (22:35)
[2018-07-03] MEDS ORDERED: AZIT250T12 PO (22:43)
[2018-07-03] MEDS ORDERED: AZITHROMYCIN 250 MG TAB (ZITHROMAX) PO SCH (22:45)
[2018-07-03] MEDS ORDERED: RX-ACETAMINOPHEN/CODEINE TAB PPK #4 PO SCH (22:45)
[2018-07-03 22:53] VITALS: BP 149/90
--- NOTE | 2018-07-04 07:04 | Diagnostic Imaging Report ---
Indication: Cough and congestion x5 days. PA and lateral chest Heart size and pulmonary vascularity are normal. Lungs are clear. There are no effusions or pneumothoraces. Impression: Negative chest. Dictated by: Dictated on workstation # [id number]
== END 2018-07-03 22:54 | disposition home or self-care (01) ==
LOC: EDUNIT# 21:15 → ER 21:16
DX: J40 Bronchitis, not specified as acute or chronic (principal); F31.9 Bipolar disorder, unspecified; Z79.52 Long term (current) use of systemic steroids; Z82.49 Family history of ischemic heart disease and other diseases of the circulatory system; Z80.41 Family history of malignant neoplasm of ovary; Z80.49 Family history of malignant neoplasm of other genital organs; Z90.49 Acquired absence of other specified parts of digestive tract; Z90.89 Acquired absence of other organs
CPT/HCPCS: 71046; 94640

== ENCOUNTER 2018-10-17 20:11 | Emergency (ER) | payer BC ==
[~2018-10-17] VITALS: Ht 167.6 cm; Wt 133.4 kg
[~2018-10-17 20:11] MED LIST changes: +AZIT250T12 PO
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
--- OUTSIDE RECORDS SUMMARY | 2018-10-17 20:21 | XMS REPORT | Continuity of Care Document ---
Author Author [facility] Address Unknown Phone Unavailable Allergies Active Description Code Type Severity Reaction Onset Reported/Identified Relationship to Patient Clinical Status Yes No Known Drug Allergies [id number] Drug Allergy Unknown N/A 04/14/2008 Medications There [...] UNSPECIFIED SITE OF KNEE AND LEG 01/04/2013 ROHIT ALVAREZ APRN R 844.9 SPRAIN OF UNSPECIFIED SITE [...] 782.0 DISTURBANCE OF SKIN SENSATION 04/01/2013 KIM TAKE OFF MAN, ROHIT R 719.42 PAIN IN JOINT INVOLVING UPPER ARM 04/01/2013 KIM TAKE OFF MAN, ROHIT R 782.0 DISTURBANCE OF SKIN SENSATION 04/01/2013 KIM TAKE OFF MAN, ROHIT R 719.42 PAIN IN JOINT INVOLVING UPPER ARM 04/01/2013 KIM TAKE OFF MAN, ROHIT R 782.0 DISTURBANCE OF SKIN SENSATION 04/01/2013 KIM TAKE OFF MAN, ROHIT R 719.42 PAIN IN JOINT INVOLVING UPPER ARM 04/01/2013 KIM TAKE OFF MAN, ROHIT R 782.0 DISTURBANCE OF SKIN SENSATION 04/01/2013 KIM TAKE OFF MAN, ROHIT R 719.42 PAIN IN JOINT INVOLVING UPPER ARM 04/01/2013 KIM TAKE OFF MAN, ROHIT R 782.0 DISTURBANCE OF SKIN SENSATION 04/01/2013 KIM TAKE OFF MAN, ROHIT R 719.42 PAIN IN JOINT INVOLVING UPPER ARM 04/01/2013 KIM TAKE OFF MAN, ROHIT R 782.0 DISTURBANCE OF SKIN SENSATION [...] FORRESTN, ROHIT R 786.2 COUGH 06/03/2013 ATIF TAKE OFF MAN, OBIE A 462 ACUTE PHARYNGITIS 06/03/2013 ATIF TAKE OFF MAN, OBIE A 709.09 OTHER DYSCHROMIA 06/03/2013 ATIF TAKE OFF MAN, OBIE A 786.2 COUGH 06/03/2013 ATIF TAKE OFF MAN, OBIE A 462 ACUTE PHARYNGITIS 06/03/2013 ATIF TAKE OFF MAN, OBIE A 709.09 OTHER DYSCHROMIA 06/03/2013 ATIF TAKE OFF MAN, OBIE A 786.2 COUGH 06/03/2013 MARIELLE NUÑEZ [...] R 462 ACUTE PHARYNGITIS 06/03/2013 KIM GUPTA, ORHIT R 709.09 OTHER DYSCHROMIA 06/03/2013 KIM GUPTA, ROHIT R 786.2 COUGH 06/03/2013 KIM TAKE OFF MAN, ROHIT R 462 ACUTE PHARYNGITIS 06/03/2013 KIM TAKE OFF MAN, ROHIT R 709.09 OTHER DYSCHROMIA 06/03/2013 KIM TAKE OFF MAN, ROHIT R 786.2 COUGH 06/03/2013 KIM TAKE OFF MAN, ROHIT R 462 ACUTE PHARYNGITIS 06/03/2013 KIM TAKE OFF MAN, ROHIT R 709.09 OTHER DYSCHROMIA 06/03/2013 KIM [...] 727.04 RADIAL STYLOID TENOSYNOVITIS 06/20/2013 BRITTANY KEARNEY, BRETT 354.0 CARPAL TUNNEL SYNDROME 06/20/2013 BRITTANY KEARNEY, BRETT 727.04 RADIAL STYLOID TENOSYNOVITIS 06/20/2013 KIM TAKE OFF MAN, ROHIT R 354.0 CARPAL TUNNEL SYNDROME 06/20/2013 KIM TAKE OFF MAN, ROHIT R 727.04 RADIAL STYLOID TENOSYNOVITIS 06/20/2013 KIM TAKE OFF MAN, ROHIT R 354.0 CARPAL TUNNEL SYNDROME 06/20/2013 KIM TAKE OFF MAN, ROHIT R 727.04 RADIAL STYLOID TENOSYNOVITIS 06/20/2013 KIM TAKE OFF MAN, ROHIT R 354.0 CARPAL TUNNEL SYNDROME 06/20/2013 KIM TAKE OFF MAN, ROHIT R 727.04 RADIAL STYLOID TENOSYNOVITIS 06/20/2013 KIM TAKE OFF MAN, ROHIT R 354.0 CARPAL TUNNEL SYNDROME 06/20/2013 KIM TAKE OFF MAN, ROHIT R 727.04 RADIAL STYLOID TENOSYNOVITIS 06/20/2013 KIM TAKE OFF MAN, ROHIT R 354.0 CARPAL TUNNEL SYNDROME 06/20/2013 KIM TAKE OFF MAN, ROHIT R 727.04 RADIAL STYLOID TENOSYNOVITIS 06/20/2013 SHANA GUPTA, KYALA D 354.0 CARPAL TUNNEL SYNDROME 06/20/2013 SHANA [...] ROHIT R 709.9 SKIN LESIONS 06/27/2013 KIM TAKE OFF MAN, ROHIT R 709.9 SKIN LESIONS 06/27/2013 KIM TAKE OFF MAN, ROHIT R 709.9 SKIN LESIONS 06/27/2013 KIM TAKE OFF MAN, ROHIT R 709.9 SKIN LESIONS 06/27/2013 KIM TAKE OFF MAN, ROHIT R 709.9 SKIN LESIONS 06/27/2013 SHANA GUPTA, KAYLA Kessler 709.9 SKIN LESIONS 06/27/2013 SHANA GUPTA, KAYLA Kessler 709.9 SKIN LESIONS 07/02/2013 JA HARRIS DO K 723.1 CERVICALGIA 07/02/2013 KIM TAKE OFF MAN, ROHIT R 723.1 CERVICALGIA 07/02/2013 ATIF TAKE OFF MAN, OBIE A 723.1 CERVICALGIA 07/02/2013 ATIF FORRESTN, OBIE A 723.1 CERVICALGIA 07/02/2013 JOAQUIN GUPTA, ELINOR R 723.1 CERVICALGIA 07/02/2013 BRETT SOTO MD 723.1 CERVICALGIA 07/02/2013 KIM TAKE OFF MAN, ROHIT R 723.1 CERVICALGIA 07/02/2013 KIM TAKE OFF MAN, ROHIT R 723.1 CERVICALGIA 07/02/2013 KIM TAKE OFF MAN, ROHIT R 723.1 CERVICALGIA 07/02/2013 KIM TAKE OFF MAN, ROHIT R 723.1 CERVICALGIA 07/02/2013 KIM TAKE OFF MAN, ROHIT R 723.1 CERVICALGIA 07/02/2013 KAYLA SALDANA APRN 723.1 CERVICALGIA 07/02/2013 KAYLA SALDANA APRN 723.1 CERVICALGIA 09/27/2013 ATIF TAKE OFF MAN, OBIE A 625.9 PELVIC PAIN 09/27/2013 ATIF TAKE OFF MAN, OBIE A V74.5 STD SCREEN 09/27/2013 ATIF TAKE OFF MAN, OBIE A 625.9 PELVIC PAIN 09/27/2013 ATIF FORRESTN, OBIE A V74.5 STD SCREEN 09/27/2013 JOAQUIN GUPTA, ELINOR R 625.9 PELVIC PAIN 09/27/2013 JOAQUIN GUPTA, ELINOR R V74.5 STD SCREEN 09/27/2013 BRETT SOTO MD 625.9 PELVIC PAIN 09/27/2013 HUERTER MD, BRETT V74.5 STD SCREEN 09/27/2013 KIM TAKE OFF MAN, ROHIT R 625.9 PELVIC PAIN 09/27/2013 KIM TAKE OFF MAN, ROHIT R V74.5 STD SCREEN 09/27/2013 KIM TAKE OFF MAN, ROHIT R 625.9 PELVIC PAIN 09/27/2013 KIM TAKE OFF MAN, ROHIT R V74.5 STD SCREEN 09/27/2013 KIM TAKE OFF MAN, ROHIT R 625.9 PELVIC PAIN 09/27/2013 KIM TAKE OFF MAN, ROHIT R V74.5 STD SCREEN 09/27/2013 KIM TAKE OFF MAN, ROHIT R 625.9 PELVIC PAIN 09/27/2013 KIM TAKE OFF MAN, ROHIT R V74.5 STD SCREEN 09/27/2013 KIM TAKE OFF MAN, ROHIT R 625.9 PELVIC PAIN 09/27/2013 KIM TAKE OFF MAN, ROHIT R V74.5 STD SCREEN 09/27/2013 SALDANA TAKE OFF MANKAYLA Avila 625.9 PELVIC PAIN 09/27/2013 SALDANA TAKE OFF MANARTURO AvilaON D V74.5 STD SCREEN 09/27/2013 KAYLA SALDANA APRN 625.9 PELVIC PAIN 09/27/2013 SALDANA TAKE OFF MANARTURO AvilaON D V74.5 STD SCREEN 01/26/2014 ELINOR [...] JOINT INVOLVING ANKLE AND FOOT 01/26/2014 KIM TAKE OFF MAN ROHIT R 727.49 OTHER GANGLION AND CYST OF SYNOVIUM TENDON AND BURSA 01/26/2014 KIM FORRESTN ROHIT R 719.47 PAIN IN JOINT INVOLVING ANKLE AND FOOT 01/26/2014 KIM TAKE OFF MAN ROHIT R 727.49 OTHER GANGLION AND CYST OF SYNOVIUM TENDON AND BURSA 01/26/2014 KIM FORRESTN ROHIT R 719.47 PAIN IN JOINT INVOLVING ANKLE AND FOOT 01/26/2014 KIM GUPTA ROHIT R 727.49 OTHER GANGLION AND CYST OF SYNOVIUM TENDON AND BURSA 01/26/2014 KIM TAKE OFF MAN, ROHIT R 719.47 PAIN IN JOINT INVOLVING ANKLE AND FOOT 01/26/2014 KIM TAKE OFF MAN, ROHIT R 727.49 OTHER GANGLION AND CYST OF SYNOVIUM TENDON AND BURSA 01/26/2014 KIM TAKE OFF MAN, ROHIT R 719.47 PAIN IN JOINT INVOLVING [...] NEUROPATHY 07/26/2014 KAYLIE RAMIREZ APRN Ot 785.1 PALPITATIONS 08/01/2014 MARYLOU ALVAREZ APRNINA R V70.0 ROUTINE GENERAL MEDICAL EXAMINATION AT [...] 625.9 12/28/2014 KAYLIE RAMIREZ APRN Ot 784.0 HEADACHE 12/30/2014 SUZE TAYLOR DO Ot 789.01 ABDOMINAL PAIN, RIGHT UPPER QUADRANT 07/03/2018 ROHIT ALVAREZ APRN Ot 719.42 JOINT PAIN-UP/ARM 07/03/2018 OBIE SRIVASTAVA APRN Ot 625.9 FEM GENITAL SYMPTOMS NOS 07/03/2018 RAMIREZ, PETER J TAKE OFF MAN Ot F31.9 BIPOLAR DISORDER, UNSPECIFIED 07/03/2018 KAYLIE RAMIREZ TAKE OFF MAN Ot J40 BRONCHITIS, NOT SPECIFIED ACUTE OR CH 07/03/2018 KAYLIE RAMIREZ TAKE OFF MAN Ot R09.81 NASAL CONGESTION 07/03/2018 KAYLIE RAMIREZ TAKE OFF MAN Ot Z79.52 [facility] (CURRENT) USE OF SYSTEMIC STER 07/03/2018 KAYLIE RAMIREZ TAKE OFF MAN Ot Z80.41 FAMILY HISTORY OF MALIGNANT NEOPLASM OF 07/03/2018 KAYLIE RAMIREZ TAKE OFF MAN Ot Z80.49 FAMILY HISTORY OF MALIGNANT NEOPLASM OF 07/03/2018 KAYLIE RAMIREZ TAKE OFF MAN Ot Z82.49 FAMILY HX OF ISCHEM HEART DIS AND OTH DI 07/03/2018 KAYLIE RAMIREZ TAKE OFF MAN Ot Z90.49 ACQUIRED ABSENCE OF OTHER SPECIFIED PART 07/03/2018 KAYLIE RAMIREZ TAKE OFF MAN Ot Z90.89 ACQUIRED ABSENCE OF OTHER ORGANS 07/03/2018 ROHIT ALVAREZ TAKE OFF MAN Ot 719.42 JOINT PAIN-UP/ARM 07/03/2018 OBIE SRIVASTAVA TAKE OFF MAN Ot 625.9 FEM GENITAL SYMPTOMS NOS 07/06/2018 KAYLIE RAMIREZ TAKE OFF MAN Ot F31.9 BIPOLAR DISORDER, UNSPECIFIED 07/06/2018 KAYLIE RAMIREZ APRN Ot J40 BRONCHITIS, NOT SPECIFIED ACUTE OR CH 07/06/2018 KAYLIE RAMIREZ TAKE OFF MAN Ot R09.81 NASAL CONGESTION 07/06/2018 KAYLIE RAMIREZ TAKE OFF MAN Ot 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 07/06/2018 KAYLIE RAMIREZ TAKE OFF MAN Ot Z80.41 FAMILY HISTORY OF MALIGNANT NEOPLASM OF 07/06/2018 KAYLIE RAMIREZ TAKE OFF MAN Ot Z80.49 FAMILY HISTORY OF MALIGNANT NEOPLASM OF 07/06/2018 KAYLIE RAMIREZ TAKE OFF MAN Ot Z82.49 FAMILY HX OF ISCHEM HEART DIS AND OTH DI 07/06/2018 KAYLIE RAMIREZ TAKE OFF MAN Ot Z90.49 ACQUIRED ABSENCE OF OTHER SPECIFIED PART 07/06/2018 KAYLIE RAMIREZ TAKE OFF MAN Ot Z90.89 ACQUIRED ABSENCE OF OTHER ORGANS 07/09/2018 KAYLIE RAMIREZ TAKE OFF MAN Ot F31.9 BIPOLAR DISORDER, UNSPECIFIED 07/09/2018 KAYLIE RAMIREZ TAKE OFF MAN Ot J40 BRONCHITIS, NOT SPECIFIED ACUTE OR CH 07/09/2018 KAYLIE RAMIREZ APRN Ot R09.81 NASAL CONGESTION 07/09/2018 KAYLIE RAMIREZ APRN Ot Z79.52 [facility] (CURRENT) USE OF SYSTEMIC STER 07/09/2018 KAYLIE RAMIREZ APRN Ot Z80.41 FAMILY HISTORY OF MALIGNANT NEOPLASM OF 07/09/2018 KAYLIE RAMIREZ APRN Ot Z80.49 FAMILY HISTORY OF MALIGNANT NEOPLASM OF 07/09/2018 KAYLIE RAMIREZ APRN Ot Z82.49 FAMILY HX OF ISCHEM HEART DIS AND OTH DI 07/09/2018 KAYLIE RAMIREZ APRN Ot Z90.49 ACQUIRED ABSENCE OF OTHER SPECIFIED PART 07/09/2018 KAYLIE RAMIREZ APRN Ot Z90.89 ACQUIRED ABSENCE OF OTHER ORGANS Procedures Code Description [place] [address] MRI EXTREMITY JOINT, UPPER RIGHT, W/O CONTRAST 07/02/2013 83598 INFLUENZA A & B (IN-HOUSE) 08/31/2013 00115 GC/CHLAM PROBE ([facility]) 09/27/2013 54422 UA W/ CULTURE IF INDICATED 09/27/2013 32717 TEST, URINE (IN- HOUSE) 09/27/2013 98112 TRICHOMONAS (IN-HOUSE) 09/27/2013 51449 CULTURE UROGENITAL 09/29/2013 99210 PAP SMEAR 10/04/2013 49092 US PELVIC COMPL (REFLEX CPT - 40189) 10/05/2013 86476 UA LONG DIP 10/05/2013 10536 TEST, URINE (IN- HOUSE) 10/05/2013 63104 XRAY FOREARM RIGHT 2 VIEWS 08/07/2014 Results [...] 13:06 Hemoglobin A1c 5.5 % 4.8-5.6 Thyroid Altair Profile - 02/13/17 13:06 TSH 0.705 uIU/mL 0.450-4.500 THYROID ANALYZER - 08/31/17 11:59 TSH 2.02 mIU/L NRG Encounters ACCT No. Visit Date/Time Discharge Status Pt. Type Provider Facility Loc./Unit Complaint [id number] 11/16/2014 12:25:00 11/16/2014 23:59:59 CLS Outpatient KAYLA SALDANA APRN [id number] 09/21/2014 13:53:00 09/21/2014 23:59:59 CLS Outpatient KAYLA SALDANA APRN [id number] 09/12/2014 10:06:00 09/12/2014 23:59:59 CLS Outpatient ROHIT ALVAREZ APRN [id number] 08/07/2014 16:33:00 08/07/2014 23:59:59 CLS Outpatient ROHIT ALVAREZ APRN [id number] 08/01/2014 09:58:00 08/01/2014 23:59:59 CLS Outpatient MARYLOU ALVAREZ APRNSINDY [place] [id number] 07/14/2014 13:28:00 07/14/2014 23:59:59 CLS Outpatient MARYLOU ALVAREZ APRNSINDY [place] [id number] 05/18/2014 11:29:00 05/18/2014 23:59:59 CLS Outpatient MARYLOU ALVAREZ APRNSINDY [place] [id number] 04/18/2014 11:14:00 04/18/2014 23:59:59 CLS Outpatient BRETT SOTO MD [id number] 01/26/2014 16:28:00 01/26/2014 23:59:59 CLS Outpatient NUÑEZ ALONSO ELINOR [place] [id number] 10/05/2013 16:29:00 10/05/2013 23:59:59 CLS Outpatient OBIE SRIVASTAVA APRN Adriana [id number] 09/27/2013 08:25:00 09/27/2013 23:59:59 CLS Outpatient MAN SRIVASTAVA APRNPATRICIA Wright [id number] 08/31/2013 09:36:00 08/31/2013 23:59:59 CLS Outpatient KIM GUPTA ROHIT [place] [id number] 07/02/2013 13:43:00 07/02/2013 23:59:59 CLS Outpatient JA HARRIS DO [id number] 06/27/2013 16:39:00 06/27/2013 23:59:59 CLS Outpatient JA HARRIS DO [id number] 06/20/2013 16:34:00 06/20/2013 23:59:59 CLS Outpatient JA HARRIS DO [id number] 06/03/2013 14:19:00 06/03/2013 23:59:59 CLS Outpatient JA HARRIS DO [id number] 04/01/2013 11:12:00 Document Registration [id number] 01/04/2013 13:15:00 Document Registration [id number] 08/14/2016 18:05:00 Document Registration [id number] 02/16/2017 14:09:00 Document Registration [id number] 04/19/2016 13:05:00 Document Registration [id number] 07/03/2018 21:16:00 07/03/2018 22:54:00 DIS Emergency KAYLIE RAMIREZ TAKE OFF MAN [facility] ER CONGESTION,EAR INFECTION SYMPTOMS [id number] 12/30/2014 11:25:00 12/30/2014 14:01:00 DIS Emergency SUZE TAYLOR DO [facility] ER ABD PAIN [id number] 12/28/2014 16:28:00 12/28/2014 18:45:00 DIS Emergency KAYLIE RAMIREZ TAKE OFF MAN [facility] ER HEADACHE [id number] 07/26/2014 10:53:00 07/26/2014 11:53:00 DIS Emergency KAYLIE RAMIREZ TAKE OFF MAN [facility] ER CHEST PAIN [id number] 10/11/2013 15:05:00 10/11/2013 23:59:59 CLS Outpatient OBIE SRIVASTAVA TAKE OFF MAN [facility] RAD PELVIC PAIN [id number] 07/06/2013 08:27:00 07/06/2013 23:59:59 CLS Outpatient ROHIT ALVAREZ TAKE OFF MAN [facility] RAD RT ELBOW PAIN [id number] 05/09/2011 12:11:00 Document Registration [id number] 08/14/2016 10:05:00 Document Registration [id number] 09/28/2018 13:30:00 09/28/2018 23:59:59 CLS Outpatient CHANDRA KOENIG APRN [facility] [id number] 08/31/2017 10:40:00 Document Registration
--- NOTE | 2018-10-17 20:37 | NUR ---
in triage, pt offered c-collar d/t c/o neck and back pain but pt refused.
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
[2018-10-17] MEDS ORDERED: HYDROcodone/APAP 5 MG/325 MG (LORTAB) TAB PO ONE (21:30)
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
[2018-10-17] MEDS ORDERED: RX-TRAMADOL 50 MG (ULTRAM) TAB PPK#4 PO STA (22:12)
[2018-10-17 22:39] VITALS: BP 138/74
== END 2018-10-17 22:39 | disposition home or self-care (01) ==
LOC: EDUNIT# 20:11 → ER 20:12
DX: S13.4XXA Sprain of ligaments of cervical spine, initial encounter (principal); M06.9 Rheumatoid arthritis, unspecified; F31.9 Bipolar disorder, unspecified; Z77.22 Contact with and (suspected) exposure to environmental tobacco smoke (acute) (chronic); Z90.49 Acquired absence of other specified parts of digestive tract; Z90.89 Acquired absence of other organs; Z80.41 Family history of malignant neoplasm of ovary; Z80.49 Family history of malignant neoplasm of other genital organs; Y04.8XXA Assault by other bodily force, initial encounter
CPT/HCPCS: 70450; 72125

== ENCOUNTER 2019-04-29 06:39 | Emergency (ER) | payer BC | END 2019-04-29 09:43 | disposition home or self-care (01) | LOC: ER 06:39 ==

== ENCOUNTER 2019-05-06 21:31 | Emergency (ER) | payer BC ==
[~2019-05-06] VITALS: Ht 168 cm; Wt 130.0 kg
[~2019-05-06 21:31] MED LIST changes: +DULO20CA PO; +PRD20T PO; +RT-ALBUINH IH
[2019-05-06] MEDS ORDERED: LACTATED RINGERS 1,000 ML IV ONE (21:59)
[2019-05-06] MEDS ORDERED: ONDANSETRON 4 MG/2 ML (SDV) Z0FRAN IVP ONE (22:00)
--- NOTE | 2019-05-06 22:08 | ED GI ---
General Chief Complaint: Abdominal/GI Problems Stated Complaint: THROWING UP BLOOD Nursing Triage Note: PT AMBULATE TO ROOM 10 WITH C/O VOMITING BLOOD STARTING TODAY. PT STATES SHE HAS BEEN VOMITING ALOT RECENTLY. PT STATES SHE IS 6-7 WEEKS . Sepsis Screen: No Definite Risk Source of Information: Patient, Family Exam Limitations: No Limitations History of Present Illness Date Seen by Provider: May 06, 2019 Time Seen by Provider: 21:53 Initial Comments Patient presents to the ER as a patient of Dr. Oneil, at 7 weeks 1 day with her last missed her period of March 17, 2019 with chief complaint of nausea vomiting all day. She does not have any medicines at home for this. She does not have a history of abdominal surgeries except for cholecystectomy and appendectomy many years ago. She denies any other problems with previous pregnancies. She's not on vitamins. She stopped her Cymbalta last week secondary to the . She is not around any sick contacts having fevers chills. She did have a little blade of bright red blood in her last emesis and that concerned her so she came to the ER. She's not having any significant abdominal pain diarrhea or constipation. Allergies and Home Medications Allergies Coded Allergies: No Known Drug Allergies (Verified , 04/14/08) Home Medications Albuterol Sulfate 1 Puff Puff, 2 PUFF IH Q4H PRN for WHEEZING 1 PUFF = 90 MCG Prescribed by: KARO CALDERON on 04/29/19 0800 Prednisone 20 Mg Tab, 40 MG PO DAILY Prescribed by: KARO CALDERON on 04/29/19 0800 Patient Home Medication List Home Medication List Reviewed: Yes Review of Systems Review of Systems Constitutional: No chills, No diaphoresis EENTM: No Blurred Vision, No Double Vision Respiratory: Denies Cough, Denies Orthopnea Cardiovascular: Denies Chest Pain, Denies Edema Gastrointestinal: Denies Constipated, Denies Diarrhea; Nausea, Poor Fluid Intake, Vomiting Genitourinary: Denies Burning, Denies Discharge Musculoskeletal: No back pain, No joint pain Past Wsohwvy-Nibylk-Vhxypa Hx Patient Social History Alcohol Use: Denies Use Recreational Drug Use: No Smoking Status: Current Everyday Smoker Type Used: Cigarettes (1 ppd) 2nd Hand Smoke Exposure: Yes Recent Foreign Travel: No Contact w/Someone Who Travel: No Recent Infectious Disease Expo: No Recent Hopitalizations: No Seasonal Allergies Seasonal Allergies: No Past Medical History Surgeries: Yes Appendectomy, Gallbladder, Tonsillectomy Respiratory: No Cardiac: No Neurological: No Traumatic Brain Injury : Yes Last Menstrual Period: Mar 17, 2019 Hx : 2 Hx Para: 1 Reproductive Disorders: No Female Reproductive Disorders: Denies Genitourinary: No Gastrointestinal: No Musculoskeletal: No Rheumatoid Arthritis Endocrine: No HEENT: No Cancer: No Psychosocial: No Bipolar, Depression Integumentary: No Blood Disorders: No Family Medical History Arthritis 19 FATHER Diabetes mellitus 19 FATHER FH: ovarian cancer 19 MOTHER FH: uterine cancer 19 MOTHER Hypertension 19 FATHER Thyroid disease G8 SISTER No Family History of: AIDS Abdominal aortic aneurysm Geovany's disease Alcoholism Physical Exam Vital Signs Vital Signs - First Documented 05/06/19 21:56 Temp 37.0 Pulse 101 Resp 18 B/P (MAP) 170/98 (122) Pulse Ox 96 O2 Delivery Room Air Capillary Refill : Less Than 3 Seconds Height/Weight/BMI Height: 5'6.00" Weight: 294lbs. oz. 133.524776xe; 46.00 BMI Method:Stated General Appearance: no apparent distress, obese HEENT: PERRL/EOMI, pharynx normal Neck: full range of motion, normal inspection Respiratory: lungs clear, normal breath sounds, no respiratory distress, no accessory muscle use Cardiovascular: normal peripheral pulses, regular rate, rhythm Peripheral Pulses: 2+ Radial Pulses (R), 2+ Radial Pulses (L) Gastrointestinal: normal bowel sounds, soft, tenderness (mild epigastric) Neurologic/Psychiatric: alert, normal mood/affect, oriented x 3 Skin: normal color, warm/dry Progress/Results/Core Measures Results/Orders Lab Results Laboratory Tests Test 05/06/19 22:11 05/06/19 22:16 Range/Units White Blood Count 14.1 H 4.3-11.0 10^3/uL Red Blood Count 5.22 4.35-5.85 10^6/uL Hemoglobin 15.1 11.5-16.0 G/DL Hematocrit 45 35-52 % Mean Corpuscular Volume 86 80-99 FL Mean Corpuscular Hemoglobin 29 25-34 PG Mean Corpuscular Hemoglobin Concent 34 32-36 G/DL Red Cell Distribution Width 15.5 H 10.0-14.5 % Platelet Count 219 130-400 10^3/uL Mean Platelet Volume 10.7 H 7.4-10.4 FL Neutrophils (%) (Auto) 63 42-75 % Lymphocytes (%) (Auto) 29 12-44 % Monocytes (%) (Auto) 6 0-12 % Eosinophils (%) (Auto) 1 0-10 % Basophils (%) (Auto) 0 0-10 % Neutrophils # (Auto) 8.9 H 1.8-7.8 X 10^3 Lymphocytes # (Auto) 4.1 H 1.0-4.0 X 10^3 Monocytes # (Auto) 0.9 0.0-1.0 X 10^3 Eosinophils # (Auto) 0.2 0.0-0.3 10^3/uL Basophils # (Auto) 0.0 0.0-0.1 10^3/uL Neutrophils % (Manual) 62 % Lymphocytes % (Manual) 25 % Monocytes % (Manual) 2 % Eosinophils % (Manual) 2 % Basophils % (Manual) 0 % Band Neutrophils 3 % Reactive Lymphocytes 6 % Toxic Granulation 1+ Anisocytosis SLIGHT Sodium Level 137 135-145 MMOL/L Potassium Level 3.7 3.6-5.0 MMOL/L Chloride Level 99 98-107 MMOL/L Carbon Dioxide Level 25 21-32 MMOL/L Anion Gap 13 5-14 MMOL/L Blood Urea Nitrogen 9 7-18 MG/DL Creatinine 0.82 0.60-1.30 MG/DL Estimat Glomerular Filtration Rate > 60 BUN/Creatinine Ratio 11 Glucose Level 131 H 70-105 MG/DL Calcium Level 10.0 8.5-10.1 MG/DL Corrected Calcium 9.9 8.5-10.1 MG/DL Total Bilirubin 0.4 0.1-1.0 MG/DL Aspartate Amino Transf (AST/SGOT) 17 5-34 U/L Alanine Aminotransferase (ALT/SGPT) 28 0-55 U/L Alkaline Phosphatase 70 40-136 U/L Total Protein 7.3 6.4-8.2 GM/DL Albumin 4.1 3.2-4.5 GM/DL Urine Color YELLOW Urine Clarity CLEAR Urine pH 6 5-9 Urine Specific [place] 1.020 1.016-1.022 Urine Protein 2+ H NEGATIVE Urine Glucose (UA) NEGATIVE NEGATIVE Urine Ketones NEGATIVE NEGATIVE Urine Nitrite NEGATIVE NEGATIVE Urine Bilirubin NEGATIVE NEGATIVE Urine Urobilinogen NORMAL NORMAL MG/DL Urine Leukocyte Esterase NEGATIVE NEGATIVE Urine RBC (Auto) NEGATIVE NEGATIVE Urine RBC NONE /HPF Urine WBC NONE /HPF Urine Squamous Epithelial Cells 0-2 /HPF Urine Crystals NONE /LPF Urine Bacteria TRACE /HPF Urine Casts PRESENT /LPF Urine Hyaline Casts 2-5 H /LPF Urine Mucus SMALL H /LPF Urine Culture Indicated NO My Orders Orders - ARIELLE RODRIGUEZ Ed Iv/Invasive Line Start (05/06/19 21:59) Lactated Ringers (Lr 1000 Ml Iv Solution (05/06/19 21:59) Ondansetron Injection (Zofran Injectio (05/06/19 22:00) Cbc With Automated Diff (05/06/19 21:59) Comprehensive Metabolic Panel (05/06/19 21:59) Ua Culture If Indicated (05/06/19 21:59) Urine Bedside (05/06/19 21:59) Pantoprazole Injection (Protonix Injecti (05/06/19 22:15) Manual Differential (05/06/19 22:11) Medications Given in ED Current Medications Medications Dose Ordered Sig/David Route Start Time Stop Time Status Last Admin Dose Admin Lactated Ringer's 1,000 ml @ 0 mls/hr Q0M ONCE IV 05/06/19 21:59 05/06/19 22:03 DC 05/06/19 22:42 999 MLS/HR Ondansetron HCl 8 mg ONCE ONCE IVP 05/06/19 22:00 05/06/19 22:03 DC 05/06/19 22:42 8 MG Pantoprazole 40 mg ONCE ONCE IV 05/06/19 22:15 05/06/19 22:16 DC 05/06/19 22:42 40 MG Vital Signs/I&O 05/06/19 21:56 Temp 37.0 Pulse 101 Resp 18 B/P (MAP) 170/98 (122) Pulse Ox 96 O2 Delivery Room Air Blood Pressure Mean: 122 Progress Progress Note #1: Time: 22:07 Progress Note Afebrile but she is tachycardic around 102 -105 so we'll give her 8 mg Zofran liter of lactated Ringer's, pantoprazole and check some basic labs and urinalysis. Suspect gastroenteritis possible viral versus nausea vomiting related to first trimester . Progress Note #2: Time: 23:12 Progress Note Patient's feeling better at about half of her liter fluids in. Her nausea is gone. Her heart rate is down below 100. Plan to allow her to finish her fluids put her out on vitamin B6 and Zofran. Departure Impression Primary Impression: Viral gastroenteritis Additional Impression: Nausea and vomiting during prior to 22 weeks gestation Disposition: 01 HOME, SELF-CARE Condition: Improved Departure-Patient Inst. Decision time for Depature: 23:13 [facility]: [facility] [place] Primary Care Physician Patient Instructions: Viral Gastroenteritis, Adult (DC), Nausea and Vomiting of (DC) Add. Discharge Instructions: 25 mg of vitamin B6 every 6 hours as needed for nausea vomiting. One tablet of Zofran every 6 hours as needed for her nausea and vomiting. Follow-up with Dr. Cruz at the scheduled appointment. All discharge instructions reviewed with patient and/or family. Voiced understanding. Scripts Pyridoxine HCl (Pyridoxine HCl) 25 Mg Tablet 25 MG PO Q6H PRN for NAUSEA/VOMITING-1ST LINE, #20 TAB 0 Refills Prov: ARIELLE RODRIGUEZ 05/06/19 Ondansetron (Ondansetron Odt) 4 Mg Tab.rapdis 4 MG PO Q6H PRN for NAUSEA/VOMITING, #8 TAB 0 Refills Prov: ARIELLE RODRIGUEZ 05/06/19 Pnv Cmb#21/Iron/Folic Acid ( Complete Caplet) 1 Each Tablet 1 EACH PO DAILY for 30 Days, #30 TAB 0 Refills Prov: ARIELLE RODRIGUEZ 05/06/19 ARIELLE RODRIGUEZ May 06, 2019 22:08
[2019-05-06] MEDS ORDERED: PANTOPRAZOLE 40 MG (PROTONIX) VIAL IV ONE (22:15)
[2019-05-06 22:17] LABS: BASOPHILS % (AUTO) 0 % (0-10); EOSINOPHILS # (AUTO) 0.2 10^3/uL (0.0-0.3); EOSINOPHILS % (AUTO) 1 % (0-10); HEMATOCRIT 45 % (35-52); HEMOGLOBIN 15.1 G/DL (11.5-16.0); LYMPHOCYTES # (AUTO) 4.1 X 10^3 (1.0-4.0); LYMPHOCYTES % (AUTO) 29 % (12-44); MEAN CORPUSCULAR HEMOGLOBIN 29 PG (25-34); MEAN CORPUSCULAR HGB CONC 34 G/DL (32-36); MEAN CORPUSCULAR VOLUME 86 FL (80-99); MEAN PLATELET VOLUME 10.7 FL (7.4-10.4); MONOCYTES # (AUTO) 0.9 X 10^3 (0.0-1.0); MONOCYTES % (AUTO) 6 % (0-12); NEUTROPHILS # (AUTO) 8.9 X 10^3 (1.8-7.8); NEUTROPHILS % (AUTO) 63 % (42-75); PLATELET COUNT 219 10^3/uL (130-400); RED CELL DISTRIBUTION WIDTH 15.5 % (10.0-14.5)
[2019-05-06 22:20] LABS: BILIRUBIN,URINE NEGATIVE (NEGATIVE); CLARITY,URINE CLEAR; COLOR,URINE YELLOW; GLUCOSE, URINE (UA) NEGATIVE (NEGATIVE); KETONES,URINE NEGATIVE (NEGATIVE); LEUKOCYTE ESTERASE ,URINE NEGATIVE (NEGATIVE); NITRITE,URINE NEGATIVE (NEGATIVE); PH,URINE 6 (5-9); PROTEIN,URINE 2+ (NEGATIVE); UROBILINOGEN,URINE NORMAL (NORMAL)
[2019-05-06 22:31] LABS: BACTERIA,URINE TRACE /HPF; SQUAMOUS EPITHELIAL CELL,UR 0-2 /HPF
[2019-05-06 22:33] LABS: WHITE BLOOD COUNT 14.1 10^3/uL (4.3-11.0)
[2019-05-06 22:36] LABS: ALANINE AMINOTRANSFERASE 28 U/L (0-55); ALBUMIN 4.1 GM/DL (3.2-4.5); ALKALINE PHOSPHATASE 70 U/L (40-136); BILIRUBIN,TOTAL 0.4 MG/DL (0.1-1.0); BUN/CREATININE RATIO 11; CARBON DIOXIDE 25 MMOL/L (21-32); CHLORIDE 99 MMOL/L (98-107); CREATININE SERUM 0.82 MG/DL (0.60-1.30); GFR ESTIMATED > 60; GLUCOSE 131 MG/DL (70-105); POTASSIUM 3.7 MMOL/L (3.6-5.0); SODIUM 137 MMOL/L (135-145); TOTAL PROTEIN 7.3 GM/DL (6.4-8.2)
[2019-05-06 22:37] LABS: ANISOCYTOSIS SLIGHT; BAND NEUTROPHILS 3 %; BASOPHILS % (MANUAL) 0 %; EOSINOPHILS % (MANUAL) 2 %; LYMPHOCYTES % (MANUAL) 25 %; MONOCYTES % (MANUAL) 2 %; NEUTROPHILS % (MANUAL) 62 %; REACTIVE LYMPHOCYTES 6 %; TOXIC GRANULATION/VACUOLAZATIO 1+
--- NOTE | 2019-05-06 22:54 | NUR ---
Recieved report from WILLY Hodge to assume care of pt @ this time.
[2019-05-06] MEDS ORDERED: ONDA4TAB11 PO (23:16)
[2019-05-06] MEDS ORDERED: PYRI25TA4 PO (23:16)
[2019-05-06] MEDS ORDERED: PNV1TABL9 PO (23:16)
[2019-05-06 23:37] VITALS: BP 120/53
== END 2019-05-06 23:37 | disposition home or self-care (01) ==
LOC: EDUNIT# 21:31 → ER 21:32
DX: O98.811 Other maternal infectious and parasitic diseases complicating pregnancy, first trimester (principal); A08.4 Viral intestinal infection, unspecified; O99.341 Other mental disorders complicating pregnancy, first trimester; F31.9 Bipolar disorder, unspecified; O99.89 Other specified diseases and conditions complicating pregnancy, childbirth and the puerperium; M06.9 Rheumatoid arthritis, unspecified; O99.331 Smoking (tobacco) complicating pregnancy, first trimester; F17.210 Nicotine dependence, cigarettes, uncomplicated; Z3A.01 Less than 8 weeks gestation of pregnancy; Z90.49 Acquired absence of other specified parts of digestive tract; Z90.89 Acquired absence of other organs; Z87.820 Personal history of traumatic brain injury; Z80.41 Family history of malignant neoplasm of ovary; Z80.49 Family history of malignant neoplasm of other genital organs
CPT/HCPCS: 36415; 80053; 81000; 84703; 85007; 85027

== ENCOUNTER 2019-05-29 15:56 | Emergency (ER) | payer BC ==
[~2019-05-29] VITALS: Ht 167 cm; Wt 133.0 kg
[~2019-05-29 15:56] MED LIST changes: +ONDA4TAB11 PO; +PNV1TABL9 PO; +PYRI25TA4 PO
--- NOTE | 2019-05-29 16:33 | ED GU-Female ---
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 DOES NOT KNOW WHAT SHE PASSED. ALSO COMPLAINS OF SLIGHT CRAMPING BUT HAS HAD CRAMPING DURING THIS . PT IS APPX 12 WEEKS GESTATION. Nursing Sepsis Screen: No Definite Risk Source: patient Exam Limitations: no limitations History of Present Illness Date Seen by Provider: May 29, 2019 Time Seen by Provider: 16:32 Initial Comments 34-year-old female patient presents to the emergency department with complaints of noticing a small amount of blood on the toilet paper when she wiped. Patient also reports "passing something else" states she does not know exactly what it was. Patient does have slight cramping in the lower abdomen, but states she has had cramping throughout the entire . Patient states she is approximately 10-12 weeks gestation. Patient was seen by Dr. Dwyer at [facility] on 05/25/19 with a bedside ultrasound done. States she was told that the baby was moving and had a strong heartbeat. Patient states she called the clinic today, but was told to come to the emergency department. She denies any further blood upon urination or wiping. Ultrasound done on 04/29/19 showed an intrauterine gestational sac with an early pole measuring 5 weeks 6 days. Timing/Duration: just prior to arrival (30 minutes prior to arrival), gone now Severity/Quality: mild, cramping Location: suprapubic Radiation: none Activities at Onset: none Prior Genitourinary Problems: none Sexual [place] History: less than 2 months ago, single partner Modifying Factors: Worsens With Other (denies modifying factors) Allergies and Home Medications Allergies Coded Allergies: No Known Drug Allergies (Verified , 04/14/08) Home Medications Albuterol Sulfate 1 Puff Puff, 2 PUFF IH Q4H PRN for WHEEZING 1 PUFF = 90 MCG Prescribed by: KARO CALDERON on 04/29/19 0800 Metronidazole 70 Gm Gel.w.appl, 70 GM VG HS Prescribed by: JACINTO RICE on 05/29/19 181 Ondansetron 4 Mg Tab.rapdis, 4 MG PO Q6H PRN for NAUSEA/VOMITING Prescribed by: ARIELLE RODRIGUEZ on 9/27/19 2316 Pnv Cmb#21/Iron/Folic Acid 1 Each Tablet, 1 EACH PO DAILY Prescribed by: ARIELLE RODRIGUEZ on 05/06/192315 Prednisone 20 Mg Tab, 40 MG PO DAILY Prescribed by: KARO CALDERON on 04/29/19 0800 Pyridoxine HCl 25 Mg Tablet, 25 MG PO Q6H PRN for NAUSEA/VOMITING-1ST LINE Prescribed by: ARIELLE RODRIGUEZ on 05/06/192315 Patient Home Medication List Home Medication List Reviewed: Yes Review of Systems Review of Systems Constitutional: No chills, No diaphoresis, No dizziness, No fever, No malaise, No weakness Respiratory: no symptoms reported Cardiovascular: no symptoms reported Gastrointestinal: see HPI, abdominal pain (mild suprapubic abdominal cramping); No constipation, No diarrhea, No loss of appetite, No melena, No nausea, No vomiting Genitourinary: see HPI; denies burning, denies dysuria, denies frequency, denies flank pain, denies hematuria, denies pain; other (see history of present illness) : Yes Expected Date of Delivery: December 22, 2019 LMP: Mar 17, 2019 Musculoskeletal: No back pain Skin: no symptoms reported Psychiatric/Neurological: No Symptoms Reported Endocrine: No Symptoms Reported All Other Systemes Reviewed Negative Unless Noted: Yes (Negative excepted noted.) Past Gsrawtu-Aercfk-Wnnbdp Hx Past Med/Social Hx: Reviewed Nursing Past Med/Soc Hx Patient Social History Alcohol Use: Denies Use Recreational Drug Use: No Smoking Status: Current Everyday Smoker Type Used: Cigarettes 2nd Hand Smoke Exposure: Yes Recent Foreign Travel: No Contact w/Someone Who Travel: No Recent Infectious Disease Expo: No Recent Hopitalizations: No Physical Abuse: No Sexual Abuse: No Mistreated: No Fear: No Seasonal Allergies Seasonal Allergies: No Past Medical History Surgeries: Yes Appendectomy, Gallbladder, Tonsillectomy Respiratory: No Cardiac: No Neurological: No Traumatic Brain Injury : Yes Expected Date of Delivery: December 22, 2019 Last Menstrual Period: Mar 17, 2019 Hx : 2 Hx Para: 1 Hx Total # of Abortions (Sp): 0 Reproductive Disorders: No Female Reproductive Disorders: Denies Genitourinary: No Gastrointestinal: No Musculoskeletal: No Rheumatoid Arthritis Endocrine: No HEENT: No Cancer: No Psychosocial: No Bipolar, Depression Integumentary: No Blood Disorders: No Family Medical History Reviewed Nursing Family Hx Arthritis 19 FATHER Diabetes mellitus 19 FATHER FH: ovarian cancer 19 MOTHER FH: uterine cancer 19 MOTHER Hypertension 19 FATHER Thyroid disease G8 SISTER No Family History of: AIDS Abdominal aortic aneurysm [place]'s disease Alcoholism No Pertinent Family Hx Physical Exam Vital Signs Vital Signs - First Documented 05/29/19 16:00 Temp 36.6 Pulse 91 Resp 16 B/P (MAP) 169/84 (112) Pulse Ox 99 O2 Delivery Room Air Capillary Refill : Less Than 3 Seconds Height, Weight, BMI Height: 5'6.00" Weight: 294lbs. oz. 133.094535cf; 47.00 BMI Method:Stated General Appearance: WD/WN, no apparent distress HEENT: PERRL/EOMI, pharynx normal Neck: supple, normal inspection Cardiovascular: normal peripheral pulses, regular rate, rhythm, no edema, no gallop, no murmur Respiratory: lungs clear, normal breath sounds, no respiratory distress, no accessory muscle use Gastrointestinal: normal bowel sounds, soft, no organomegaly, no pulsatile mass; No distended, No guarding, No rebound; tenderness (mild suprapubic tenderness) Pelvic: normal external exam, discharge (slight blood tinged off white discharge noted.); No lesions, No mass Back: normal inspection, no CVA tenderness Extremities: no pedal edema, no calf tenderness, normal capillary refill Neurologic/Psychiatric: alert, normal mood/affect, oriented x 3 Skin: normal color, warm/dry Progress/Results/Core Measures Suspected Sepsis Recent Fever Within 48 Hours: No Infection Criteria Present: None New/Unexplained Altered Menta: No Sepsis Screen: No Definite Risk SIRS Temperature: Pulse: 91 Respiratory Rate: 16 Laboratory Tests 05/29/19 16:32: White Blood Count 8.4 Blood Pressure 169 /84 Mean: 112 Laboratory Tests 05/29/19 16:32: Platelet Count 215 Results/Orders Lab Results Laboratory Tests Test 05/29/19 16:17 05/29/19 16:32 05/29/19 18:07 Range/Units Urine Color YELLOW Urine Clarity CLEAR Urine pH 7 5-9 Urine Specific [place] 1.005 L 1.016-1.022 Urine Protein NEGATIVE NEGATIVE Urine Glucose (UA) NEGATIVE NEGATIVE Urine Ketones NEGATIVE NEGATIVE Urine Nitrite NEGATIVE NEGATIVE Urine Bilirubin NEGATIVE NEGATIVE Urine Urobilinogen NORMAL NORMAL MG/DL Urine Leukocyte Esterase NEGATIVE NEGATIVE Urine RBC (Auto) NEGATIVE NEGATIVE Urine RBC NONE /HPF Urine WBC NONE /HPF Urine Squamous Epithelial Cells 2-5 /HPF Urine Crystals NONE /LPF Urine Bacteria NEGATIVE /HPF Urine Casts NONE /LPF Urine Mucus NEGATIVE /LPF Urine Culture Indicated NO White Blood Count 8.4 4.3-11.0 10^3/uL Red Blood Count 4.66 4.35-5.85 10^6/uL Hemoglobin 13.6 11.5-16.0 G/DL Hematocrit 41 35-52 % Mean Corpuscular Volume 88 80-99 FL Mean Corpuscular Hemoglobin 29 25-34 PG Mean Corpuscular Hemoglobin Concent 33 32-36 G/DL Red Cell Distribution Width 14.5 10.0-14.5 % Platelet Count 215 130-400 10^3/uL Mean Platelet Volume 11.0 H 7.4-10.4 FL Neutrophils (%) (Auto) 63 42-75 % Lymphocytes (%) (Auto) 28 12-44 % Monocytes (%) (Auto) 7 0-12 % Eosinophils (%) (Auto) 2 0-10 % Basophils (%) (Auto) 0 0-10 % Neutrophils # (Auto) 5.2 1.8-7.8 X 10^3 Lymphocytes # (Auto) 2.3 1.0-4.0 X 10^3 Monocytes # (Auto) 0.6 0.0-1.0 X 10^3 Eosinophils # (Auto) 0.2 0.0-0.3 10^3/uL Basophils # (Auto) 0.0 0.0-0.1 10^3/uL Human Chorionic Gonadotropin, Quant 96205 H <5 MIU/ML Micro Results Microbiology 05/29/19 Genital Culture, Resulted Pending 05/29/19 Wet Prep - Final, Resulted My Orders Orders - JACINTO RICE Heart Tones (05/29/19 16:07) Cbc With Automated Diff (05/29/19 16:07) Hcg,Quantitative (05/29/19 16:07) Ua Culture If Indicated (05/29/19 16:07) Wet Prep (05/29/19 17:41) Neisseria Gonorrhea Swab (05/29/19 17:41) Genital Culture (05/29/19 17:41) Chlamydia Trachomatis Swab (05/29/19 17:41) Vital Signs/I&O 05/29/19 05/29/19 16:00 18:19 Temp 36.6 36.6 Pulse 91 91 Resp 16 16 B/P (MAP) 169/84 (112) 159/80 (112) Pulse Ox 99 99 O2 Delivery Room Air Room Air Capillary Refill : Less Than 3 Seconds Blood Pressure Mean: 112 Departure Communication (Admissions) Patient seen and evaluated. Per EMR from 03/02/07 patient is O+ blood type. heart tones, UA, CBC, and an HCG quantitative obtained. All laboratory findings d/w the patient. plan for dsch to home with f/u as an outpatient with dr. dwyer for repeat labs. patient to call for outpatient pelvic u/s appointment for tomorr or Thursday. Impression Primary Impression: Threatened miscarriage in early Additional Impression: Bacterial vaginosis in Disposition: HOME, SELF-CARE Condition: Improved Departure-Patient Inst. Decision time for Depature: 18:08 Referrals: [facility] [place] Primary Care Physician Patient Instructions: Threatened Miscarriage (DC), Bacterial Vaginosis Add. Discharge Instructions: All discharge instructions reviewed with patient and/or family. Voiced understanding. Tylenol extra strength uine-dex-ongwaim as directed for pain. Drink plenty of fluids. No heavy lifting, strenuous activity, or intercourse until released by Dr. Dwyer. No use of tampons. Follow-up with Dr. Dwyer this week for recheck and repeat labs. Call tomorrow morning for appointment time. Call hospital scheduling to schedule the outpatient ultrasound for tomorrow. Call first thing in the morning. Return to the emergency department for worsened symptoms, using more than 4 pads in 2 hours, fever, abdominal pain, inability to urinate, or any other concerns. Scripts Metronidazole (Metrogel-Vaginal) 70 Gm Gel.w.appl 70 GM VG HS for 5 Days, #1 TUBE 0 Refills Prov: JACINTO RICE 05/29/19 Work/School Note: Work Release Form Date Seen in the Emergency Department: May 29, 2019 Return to Work: May 31, 2019 Restrictions: Need Release from Doctor JACINTO RICE May 29, 2019 16:32
[2019-05-29 16:35] LABS: BILIRUBIN,URINE NEGATIVE (NEGATIVE); CLARITY,URINE CLEAR; COLOR,URINE YELLOW; GLUCOSE, URINE (UA) NEGATIVE (NEGATIVE); KETONES,URINE NEGATIVE (NEGATIVE); LEUKOCYTE ESTERASE ,URINE NEGATIVE (NEGATIVE); NITRITE,URINE NEGATIVE (NEGATIVE); PH,URINE 7 (5-9); PROTEIN,URINE NEGATIVE (NEGATIVE)
[2019-05-29 16:37] LABS: BACTERIA,URINE NEGATIVE /HPF
[2019-05-29 16:45] LABS: BASOPHILS % (AUTO) 0 % (0-10); EOSINOPHILS # (AUTO) 0.2 10^3/uL (0.0-0.3); EOSINOPHILS % (AUTO) 2 % (0-10); HEMATOCRIT 41 % (35-52); HEMOGLOBIN 13.6 G/DL (11.5-16.0); LYMPHOCYTES # (AUTO) 2.3 X 10^3 (1.0-4.0); LYMPHOCYTES % (AUTO) 28 % (12-44); MEAN CORPUSCULAR HEMOGLOBIN 29 PG (25-34); MEAN CORPUSCULAR HGB CONC 33 G/DL (32-36); MEAN CORPUSCULAR VOLUME 88 FL (80-99); MONOCYTES # (AUTO) 0.6 X 10^3 (0.0-1.0); MONOCYTES % (AUTO) 7 % (0-12); NEUTROPHILS # (AUTO) 5.2 X 10^3 (1.8-7.8); NEUTROPHILS % (AUTO) 63 % (42-75); PLATELET COUNT 215 10^3/uL (130-400); RED CELL DISTRIBUTION WIDTH 14.5 % (10.0-14.5); WHITE BLOOD COUNT 8.4 10^3/uL (4.3-11.0)
--- NOTE | 2019-05-29 18:07 | NUR ---
assisted provider with pelvic exam at this time.
[2019-05-29] MEDS ORDERED: METR70GE16 VG (18:12)
[2019-05-29 18:19] VITALS: BP 159/80
== END 2019-05-29 18:19 | disposition home or self-care (01) ==
LOC: EDUNIT# 15:56 → ER 15:57
DX: O20.0 Threatened abortion (principal); O23.591 Infection of other part of genital tract in pregnancy, first trimester; N76.0 Acute vaginitis; B96.89 Other specified bacterial agents as the cause of diseases classified elsewhere; O99.331 Smoking (tobacco) complicating pregnancy, first trimester; F17.210 Nicotine dependence, cigarettes, uncomplicated; O99.341 Other mental disorders complicating pregnancy, first trimester; F31.9 Bipolar disorder, unspecified; O99.89 Other specified diseases and conditions complicating pregnancy, childbirth and the puerperium; M06.9 Rheumatoid arthritis, unspecified; Z3A.12 12 weeks gestation of pregnancy; Z90.49 Acquired absence of other specified parts of digestive tract; Z90.89 Acquired absence of other organs; Z87.820 Personal history of traumatic brain injury; Z82.49 Family history of ischemic heart disease and other diseases of the circulatory system; Z80.41 Family history of malignant neoplasm of ovary; Z80.49 Family history of malignant neoplasm of other genital organs
CPT/HCPCS: 36415; 81000; 84702; 85025; 87070; 87077; 87186; 87205; 87210; 87491; 87591

== ENCOUNTER → 2019-05-30 | Outpatient (CLI) | payer BC ==
[~2019-05-30] MED LIST changes: +METR70GE16 VG
--- NOTE | 2019-05-30 10:28 | Diagnostic Imaging Report ---
PROCEDURE: US OB SINGLE FETUS <14 WKS. TECHNIQUE: Multiple Real-time grayscale images were obtained over the gravid uterus in various projections. INDICATION: Threatened miscarriage. COMPARISON: 04/29/2019. FINDINGS: There is a live intrauterine gestation in variable position. The heart rate measures 172 BPM. The amniotic fluid and gestational sac morphology appear normal. The crown/rump length measures 3.86 cm, corresponding with 10 weeks and 6 days, with an estimated date of delivery of 12/20/2019 which is within range of the clinical dates of 10 weeks and 4 days. An anatomical survey was not performed at this early stage. The right ovary measures 4.1 x 2.8 x 2.7 cm and contains a 2.1 cm dominant follicle. The left ovary measures 3.7 x 1.6 x 1.8 cm. Vascular flow appears normal bilaterally. No free fluid is seen. IMPRESSION: Single live intrauterine gestation measuring at 10 weeks and 6 days which is within range of the clinical dates. The amniotic fluid and heart rate are normal. Dictated by: Dictated on workstation # [id number]
== END ==
LOC: RAD 09:01
PROVIDERS: ATTEND Emergency Medicine
DX: O20.0 Threatened abortion (principal); Z3A.10 10 weeks gestation of pregnancy
CPT/HCPCS: 76801

== ENCOUNTER → 2019-08-08 | Outpatient (CLI) | payer BC, MEDICAID ==
[~2019-08-08] MED LIST changes: +CEPH-507 PO
--- NOTE | 2019-08-08 15:21 | Diagnostic Imaging Report ---
INDICATION: survey. TECHNIQUE: Multiple real-time grayscale images were obtained over the gravid uterus. COMPARISON: 05/30/2019. FINDINGS: There is a single live fetus in a breech presentation. heart rate was recorded at 144 bpm. Placenta is posterior. Amniotic fluid index is 14.5 cm. Cervical length is 5.5 cm. survey shows kidneys, bladder and stomach to be unremarkable. brain is unremarkable. Spine and cord insertion are unremarkable. There is suboptimal evaluation of the nose and lips as well as the four-chamber heart view and posterior intracranial fossa. Three-vessel cord was difficult to evaluate. Follow-up would be recommended. Biometrical measurements are as follows: Biparietal 5.08 cm, age 21 weeks 3 days. Head circumference 19.24 cm, age 21 weeks 4 days. Abdominal circumference 15.99 cm, age 21 weeks 1 days. Femur length 3.56 cm, age 21 weeks 2 days. Sonographic estimate age: 21 weeks 3 days. Sonographic estimated date of delivery: 12/16/2019. Estimated Weight: 407 gm (+/- 60 gm). LMP percentile: 80%. heart rate: 144 beats per minute. number: 1 of 1. IMPRESSION: Single live fetus approximately 21-22 weeks gestational age. survey is somewhat limited due to lie and maternal body habitus. Follow-up could be performed. No complicating features are identified. Dictated by: Dictated on workstation # [id number]
== END ==
LOC: RAD 13:25
PROVIDERS: ATTEND Obstetrics & Gynecology
DX: O26.892 Other specified pregnancy related conditions, second trimester (principal); O23.512 Infections of cervix in pregnancy, second trimester; O20.0 Threatened abortion; R10.2 Pelvic and perineal pain; Z3A.21 21 weeks gestation of pregnancy
CPT/HCPCS: 76805

== ENCOUNTER 2019-09-09 20:56 | Emergency (ER) | payer BC, MEDICAID ==
[~2019-09-09] VITALS: Ht 167.7 cm; Wt 131.8 kg
[2019-09-09 22:38] LABS: BILIRUBIN,URINE NEGATIVE (NEGATIVE); CLARITY,URINE CLEAR; COLOR,URINE YELLOW; GLUCOSE, URINE (UA) NEGATIVE (NEGATIVE); KETONES,URINE NEGATIVE (NEGATIVE); LEUKOCYTE ESTERASE ,URINE NEGATIVE (NEGATIVE); NITRITE,URINE NEGATIVE (NEGATIVE); PROTEIN,URINE NEGATIVE (NEGATIVE)
[2019-09-09 22:59] LABS: BACTERIA,URINE TRACE /HPF; SQUAMOUS EPITHELIAL CELL,UR RARE /HPF
[2019-09-09] MEDS ORDERED: ACETAMINOPHEN 500 MG TAB (TYLENOL) PO ONE (23:00)
[2019-09-09] MEDS ORDERED: METH4TAB PO (23:15)
[2019-09-09] MEDS ORDERED: methylPREDNISolone 125 MG (Solu-MEDROL) VIAL IM ONE (23:15)
--- NOTE | 2019-09-09 23:15 | ED General ---
General Chief Complaint: General Problems/Pain Stated Complaint: ARMS NUMB,LEFT HIP PAIN Nursing Triage Note: Pt amb to room #1 with c/o bilat hand numbness/burning et Lt lower back discomfort. Pt reports approx x2 days ago, she began to experience episodes of hand numbness followed by burning sensations. Pt reports discomfort to Lt lower back described as a constant dull, ache with periods of stabbing pain running distally down Lt leg. Pt reports to be 25wks . . A&OX4. Tearful during triage. Nursing Sepsis Screen: No Definite Risk Source of Information: Patient History of Present Illness Date Seen by Provider: Sep 09, 2019 Time Seen by Provider: 22:25 Initial Comments PT ARRIVES VIA POV FROM HOME PT HAS MULTIPLE COMPLAINTS PT STATES SHE IS 25 WEEKS . LMP 03/17/19. PT IS AB 0 C/O CHRONIC BACK PAIN FOR YEARS. STATES PAIN IS WORSE ON LEFT LOWER BACK AND RADIATES DOWN LEFT LEG. STATES SHE HAS HAD THIS MULTIPLE TIMES FOR YEARS, AND HAS BEEN WORSE FOR OVER A WEEK. NO PARESTHESIAS OR MOTOR DEFICITS TO LEGS NO PROBLEMS WITH BOWEL OR BLADDER FUNCTION NO PAIN ON URINATION OR OTHER URINARY SYMPTOMS NO ABDOMINAL PAIN OR CRAMPING NO VAGINAL BLEEDING OR DISCHARGE ACTIVE MOVEMENT ALSO C/O BILATERAL HANDS WITH NUMBNESS AND TINGLING AND BURNING, AND AT TIMES IS HER WHOLE ARMS--HAS HISTORY OF THE SAME THING FOR YEARS, OFF AND ON. STATES IT HAS BEEN WORSE THE LAST COUPLE OF DAYS--STATES IT IS CONSTANT AND "CAN'T TAKE IT" NO MOTOR DEFICITS OF ARMS/HANDS HAS CHRONIC NECK PAIN WELL, BUT NECK IS NOT HURTING AT THIS TIME. STATES SHE WAS DX WITH "RHEUMATOID ARTHRITIS" AT AGE 18, BUT HAS NEVER SEEN A NEUROLOGIST OR BEEN ON ANY MEDICATIONS FOR R.A. SYMPTOMS ARE NO DIFFERENT TONIGHT ( THURSDAY NIGHT) HAS NOT SOUGHT CARE AT ANY TIME FOR THIS PROBLEM HAS NOT TAKEN ANYTHING AT ANY TIME FOR THIS PROBLEM LAST OB APPOINTMENT WITH DR. SALDANA WAS 09/01/19,BUT DID NOT MENTION THESE ISSUES NEXT OB APPOINTMENT IS 09/26/19 PCP: MAURISIO-QUENTIN, NAEEM KOENIG OB: DR. SALDANA Allergies and Home Medications Allergies Coded Allergies: No Known Drug Allergies (Verified , 04/14/08) Home Medications Albuterol Sulfate 1 Puff Puff, 2 PUFF IH Q4H PRN for WHEEZING 1 PUFF = 90 MCG Prescribed by: KARO CALDERON on 04/29/19 0800 Cephalexin 500 Mg Capsule, 500 MG PO TID, (Reported) Methylprednisolone 4 Mg Tab.ds.pk, 4 MG PO UD Prescribed by: SUZE TAYLOR on 09/09/192314 Metronidazole 70 Gm Gel.w.appl, 70 GM VG HS Prescribed by: JACINTO RICE on 05/29/191811 Ondansetron 4 Mg Tab.rapdis, 4 MG PO Q6H PRN for NAUSEA/VOMITING Prescribed by: ARIELLE RODRIGUEZ on 05/06/192315 Pnv Cmb#21/Iron/Folic Acid 1 Each Tablet, 1 EACH PO DAILY Prescribed by: ARIELLE RODRIGUEZ on 05/06/192315 Prednisone 20 Mg Tab, 40 MG PO DAILY Prescribed by: KARO CALDERON on 04/29/19 0800 Pyridoxine HCl 25 Mg Tablet, 25 MG PO Q6H PRN for NAUSEA/VOMITING-1ST LINE Prescribed by: ARIELLE RODRIGUEZ on 05/06/192315 Patient Home Medication List Home Medication List Reviewed: Yes Review of Systems Review of Systems Constitutional: no symptoms reported; No chills, No diaphoresis, No dizziness, No fever EENTM: no symptoms reported; No nose congestion Respiratory: no symptoms reported; No cough Cardiovascular: no symptoms reported; No chest pain Gastrointestinal: no symptoms reported; No abdominal pain, No constipation, No nausea, No vomiting Genitourinary: no symptoms reported Musculoskeletal: see HPI, back pain, neck pain Skin: no symptoms reported Psychiatric/Neurological: See HPI, Paresthesia; Denies Weakness Hematologic/Lymphatic: No Symptoms Reported Immunological/Allergic: no symptoms reported Past Biqzeje-Pobhop-Ysbjgn Hx Past Med/Social Hx: Reviewed and Corrections made Patient Social History Alcohol Use: Occasionally Uses Recreational Drug Use: No Smoking Status: Current Everyday Smoker (1 PPD) Type Used: Cigarettes (1 PPD) 2nd Hand Smoke Exposure: Yes Recent Foreign Travel: No Contact w/Someone Who Travel: No Recent Infectious Disease Expo: No Recent Hopitalizations: No Seasonal Allergies Seasonal Allergies: No Past Medical History Surgeries: Yes Adenoidectomy, Appendectomy, Gallbladder, Tonsillectomy Respiratory: No Cardiac: No Neurological: No Reproductive Disorders: No Female Reproductive Disorders: Denies Genitourinary: No Gastrointestinal: Yes (S/P CHOLECYSTECTOMY AND APPENDECTOMY) Gall Bladder Disease Musculoskeletal: Yes (NEVER SEEN RN MIDWIFE-STATES SHE WAS DX AT AGE 18;CHRONIC NECK/BACK PN) Rheumatoid Arthritis, Chronic Back Pain Endocrine: Yes (MORBID OBESITY) HEENT: Yes Tonsilitis Cancer: No Psychosocial: Yes Anxiety, Bipolar, Depression Integumentary: No Blood Disorders: No Family Medical History Arthritis 19 FATHER Diabetes mellitus 19 FATHER FH: ovarian cancer 19 MOTHER FH: uterine cancer 19 MOTHER Hypertension 19 FATHER Thyroid disease G8 SISTER No Family History of: AIDS Abdominal aortic aneurysm Geovany's disease Alcoholism No Pertinent Family Hx Physical Exam Vital Signs Vital Signs - First Documented 09/09/19 21:30 Temp 37.1 Pulse 95 Resp 18 B/P (MAP) 148/85 (106) Pulse Ox 99 O2 Delivery Room Air Capillary Refill : Less Than 3 Seconds Height, Weight, BMI Height: 5'6.00" Weight: 294lbs. oz. 133.873291oe; 46.00 BMI Method:Stated General Appearance: Obese (MORBIDLY OBESE), Other (VERY DRAMATIC, SOBBING/CRYIN G) Neck: Full Range of Motion, Supple, Tender Lateral (MILD CERVICAL PARAVERTEBRAL MUSCLE TENDERNESS BILATERALLY. ); No Tender Midline Respiratory: Normal Breath Sounds, No Accessory Muscle Use, No Respiratory Di stress Cardiovascular: Regular Rate, Rhythm Back: Other (PINPOINT TENDERNESS OVER LEFT SI JOINT. NEGATIVE STRAIGHT LEG RAISING TEST. MOTOR/SENSORY/VASCULAR INTACT. EXAM OF BILATERAL UPPER EXTREMITIES IS NORMAL, WITH SUBJECTIVE PARESTHESIAS --HAS SENSATION) Extremity: Normal Capillary Refill, Normal Range of Motion, Non Tender, No Calf Tenderness, No Pedal Edema Neurologic/Psychiatric: Alert, Oriented x3, No Motor/Sensory Deficits, development manager II- XII Norm as Tested Skin: Normal Color, Tattoos/Piercings Progress/Results/Core Measures Suspected Sepsis Recent Fever Within 48 Hours: No Infection Criteria Present: None New/Unexplained Altered Menta: No Sepsis Screen: No Definite Risk SIRS Temperature: Pulse: 95 Respiratory Rate: 18 Blood Pressure 148 /85 Mean: 106 Results/Orders Lab Results Laboratory Tests Test 09/09/19 22:24 Range/Units Urine Color YELLOW Urine Clarity CLEAR Urine pH 6.0 5-9 Urine Specific Bayard 1.010 L 1.016-1.022 Urine Protein NEGATIVE NEGATIVE Urine Glucose (UA) NEGATIVE NEGATIVE Urine Ketones NEGATIVE NEGATIVE Urine Nitrite NEGATIVE NEGATIVE Urine Bilirubin NEGATIVE NEGATIVE Urine Urobilinogen 0.2 < = 1.0 MG/DL Urine Leukocyte Esterase NEGATIVE NEGATIVE Urine RBC (Auto) NEGATIVE NEGATIVE Urine RBC NONE /HPF Urine WBC NONE /HPF Urine Squamous Epithelial Cells RARE /HPF Urine Crystals NONE /LPF Urine Bacteria TRACE /HPF Urine Casts NONE /LPF Urine Mucus NEGATIVE /LPF Urine Culture Indicated NO Urine Opiates Screen NEGATIVE NEGATIVE Urine Oxycodone Screen NEGATIVE NEGATIVE Urine Methadone Screen NEGATIVE NEGATIVE Urine Propoxyphene Screen NEGATIVE NEGATIVE Urine Barbiturates Screen NEGATIVE NEGATIVE Ur Tricyclic Antidepressants Screen NEGATIVE NEGATIVE Urine Phencyclidine Screen NEGATIVE NEGATIVE Urine Amphetamines Screen NEGATIVE NEGATIVE Urine Methamphetamines Screen NEGATIVE NEGATIVE Urine Benzodiazepines Screen NEGATIVE NEGATIVE Urine Cocaine Screen NEGATIVE NEGATIVE Urine Cannabinoids Screen NEGATIVE NEGATIVE My Orders Orders - SUZE TAYLOR DO Urinalysis (09/09/19 22:27) Acetaminophen Tablet (Tylenol Tablet) (09/09/19 23:00) Drug Screen Stat (Urine) (09/09/19 23:00) Methylprednisolone Sod Succ (Solu-Medrol (09/09/19 23:15) Medications Given in ED Vital Signs/I&O Capillary Refill : Less Than 3 Seconds Blood Pressure Mean: 106 Departure Impression Primary Impression: LEFT SI JOINT PAIN WITH LEFT LEG RADICULAR PAIN Additional Impressions: BILATERAL UPPER EXTREMITY PARESTHESIAS 25 weeks gestation of Chronic neck and back pain Disposition: 01 HOME, SELF-CARE Condition: Stable Departure-Patient Inst. Referrals: FERMÍN SALDANA DO [facility] Patient Instructions: Chronic Neck Pain (DC), Low Back Pain (DC), Paresthesias (DC), Radiculopathy (DC), Sciatica (DC) Add. Discharge Instructions: ALTERNATE ICE AND HEAT TO SORE AREAS AT 20 MINUTE INTERVALS NO LIFTING OVER 5 LBS, NO TWISTING OR BENDING AT WAIST FOLLOW UP WITH DR. SALDANA OR [facility] [place] 3-4 DAYS FOR FURTHER CARE All discharge instructions reviewed with patient and/or family. Voiced understanding. Scripts Methylprednisolone (Medrol) 4 Mg Tab.ds.pk 4 MG PO UD, #1 PKG Prov: SUZE TAYLOR DO 09/09/19 SUZE TAYLOR DO Sep 09, 2019 23:15
[2019-09-09 23:24] LABS: AMPHETAMINE SCREEN, URINE NEGATIVE (NEGATIVE); BARBITURATE SCREEN URINE NEGATIVE (NEGATIVE); BENZODIAZEPINES SCREEN URINE NEGATIVE (NEGATIVE); CANNABINOID SCREEN, URINE NEGATIVE (NEGATIVE); COCAINE SCREEN URINE NEGATIVE (NEGATIVE); METHADONE STAT NEGATIVE (NEGATIVE); METHAMPHETAMINE SCREEN URINE S NEGATIVE (NEGATIVE); OPIATE SCREEN URINE NEGATIVE (NEGATIVE); OXYCODONE STAT NEGATIVE (NEGATIVE); PROPOXYPHENE STAT NEGATIVE (NEGATIVE); TRICYCLIC ANTIDEPRESSANTS SCRE NEGATIVE (NEGATIVE)
[2019-09-09 23:43] VITALS: BP 156/90
== END 2019-09-09 23:43 | disposition home or self-care (01) ==
LOC: EDUNIT# 20:56 → ER 21:01
DX: O99.89 Other specified diseases and conditions complicating pregnancy, childbirth and the puerperium (principal); M53.3 Sacrococcygeal disorders, not elsewhere classified; M54.10 Radiculopathy, site unspecified; G89.29 Other chronic pain; M54.2 Cervicalgia; M54.5 Low back pain; O26.892 Other specified pregnancy related conditions, second trimester; R20.2 Paresthesia of skin; O99.332 Smoking (tobacco) complicating pregnancy, second trimester; F17.210 Nicotine dependence, cigarettes, uncomplicated; Z3A.25 25 weeks gestation of pregnancy; Z79.52 Long term (current) use of systemic steroids; Z82.49 Family history of ischemic heart disease and other diseases of the circulatory system; Z80.41 Family history of malignant neoplasm of ovary; Z80.49 Family history of malignant neoplasm of other genital organs
CPT/HCPCS: 80306; 81000; 96372

== ENCOUNTER 2019-09-19 13:10 | Outpatient (CLI) | payer MEDICAID ==
[~2019-09-19] VITALS: Ht 167.7 cm; Wt 131.9 kg
[~2019-09-19 13:10] MED LIST changes: +METH4TAB PO
--- NOTE | 2019-09-19 13:10 | NUR ---
HANSEL BRANTLEY presented to unit via AMBULATORY from OFFICE, accompanied by VISITOR, with c/o ABD PAIN. HANSEL BRANTLEY weighed, gowned, voided, and to bed. EFHM and TOCO applied, VS taken. HANSEL BRANTLEY oriented to bed controls, call light, TV, heat, and A/C controls.
[2019-09-19 13:33] VITALS: BP 165/84
[2019-09-19 13:38] VITALS: BP 159/79
[2019-09-19 13:44] VITALS: BP 159/75
[2019-09-19 13:48] VITALS: BP 158/79
[2019-09-19 13:49] LABS: BILIRUBIN,URINE NEGATIVE (NEGATIVE); CLARITY,URINE CLEAR; COLOR,URINE YELLOW; GLUCOSE, URINE (UA) NEGATIVE (NEGATIVE); KETONES,URINE NEGATIVE (NEGATIVE); LEUKOCYTE ESTERASE ,URINE NEGATIVE (NEGATIVE); NITRITE,URINE NEGATIVE (NEGATIVE); PROTEIN,URINE NEGATIVE (NEGATIVE)
[2019-09-19 13:59] LABS: BACTERIA,URINE FEW /HPF; SQUAMOUS EPITHELIAL CELL,UR 0-2 /HPF; WBC,URINE 0-2 /HPF
[2019-09-19 14:09] VITALS: BP 170/81
--- NOTE | 2019-09-19 14:11 | NUR ---
DR. JAMISON NOTIFIED OF PT'S ARRIVAL, C/O, , 26.4 WKS, REVIEW OF STRIP, UA RESULTS, B/P'S. NEW ORDERS RECEIVED.
--- NOTE | 2019-09-19 14:16 | NUR ---
FOLLOW UP APPOINTMENT SCHEDULED FOR TOMORROW TO SEE DR. SALDANA PER DR. CHURCH'S ORDER. PT TO BE SEEN TOMORROW @ 2:15 PM.
[2019-09-19] MEDS ORDERED: APAP 300 MG/CODEINE 30 MG (TYLENOL #3) TAB PO ONE (14:20)
[2019-09-19 14:30] VITALS: BP 167/83
[2019-09-19] MEDS ORDERED: CYCLOBENZAPRINE 10 MG (FLEXERIL) TAB PO NR (14:30)
[2019-09-19] MEDS ORDERED: APAP 300 MG/CODEINE 30 MG (TYLENOL #3) TAB PO NR (14:30)
--- NOTE | 2019-09-19 14:39 | NUR ---
DISCHARGE PAPERS PROVIDED AND REVIEWED WITH PT, PT VERBALIZES UNDERSTANDING AND DENIES ANY QUESTIONS AT THIS TME.
--- NOTE | 2019-09-19 14:40 | NUR ---
PT DISCHARGED FROM -[facility] TO [facility] VIA AMBULATORY IN STABLE CONDITION ACC BY SISTER.
--- NOTE | 2019-09-20 09:31 | Physician Query-Final Dx ---
Clinic Account Progress/Dx Physician Query: Please give diagnosis Please include # weeks gestation Date of Service Sep 19, 2019 at 13:10 ALEX KABA Sep 20, 2019 09:31
== END 2019-09-19 14:40 | disposition home or self-care (01) ==
LOC: WSo 13:10 → LDRP 13:10 → WSo 14:40
PROVIDERS: ATTEND Obstetrics & Gynecology
DX: Z34.80 Encounter for supervision of other normal pregnancy, unspecified trimester (principal); Z3A.00 Weeks of gestation of pregnancy not specified
CPT/HCPCS: 81000; 99212

== ENCOUNTER → 2019-09-21 | Outpatient (CLI) | payer MEDICAID ==
--- NOTE | 2019-09-21 15:44 | Diagnostic Imaging Report ---
INDICATION: Decreased movement. Limited study performed per request and compared to 08/08/2019. Single live intrauterine fetus is seen with heart rate of 147 BPM. There is movement throughout the exam. Amniotic fluid index is normal at 14.6 cm. Cervical length is 3.8 cm. Full measurements were not obtained per request. IMPRESSION: Single live intrauterine fetus with no detectable abnormalities on limited study. Dictated by: Dictated on workstation # [id number]
== END ==
LOC: RAD 14:28
PROVIDERS: ATTEND Obstetrics & Gynecology
DX: O36.8120 Decreased fetal movements, second trimester, not applicable or unspecified (principal); O16.3 Unspecified maternal hypertension, third trimester; Z3A.26 26 weeks gestation of pregnancy
CPT/HCPCS: 76815

== ENCOUNTER → 2019-10-04 | Outpatient (CLI) | payer MEDICAID ==
--- NOTE | 2019-10-04 16:37 | Diagnostic Imaging Report ---
INDICATION: Follow-up anatomy and growth. TECHNIQUE: Multiple real-time grayscale images were obtained over the gravid uterus. COMPARISON: 09/21/2019. FINDINGS: There is a single live fetus in a breech presentation. heart rate was recorded at 139 BPM. Placenta is posterior. Amniotic fluid index is normal at 14.2 cm. A four-chamber heart view is unremarkable. No gross abnormalities are seen. Biometrical measurements are as follows: Biparietal 7.60 cm, age 30 weeks 4 days. Head circumference 28.57 cm, age 31 weeks 3 days. Abdominal circumference 22.46 cm, age 27 weeks 0 days. Femur length 5.42 cm, age 28 weeks 5 days. Sonographic estimate age: 29 weeks 3 days. Sonographic estimated date of delivery: 12/17/2019. Estimated Weight: 1181 gm (+/- 172 gm). LMP percentile: 19%. heart rate: 139 beats per minute. number: 1 of 1. IMPRESSION: Single live IUP of 29 weeks to 30 weeks gestational age, showing normal interval growth when compared with prior exam. No complicating features are identified. Dictated by: Dictated on workstation # [id number]
== END ==
LOC: RAD 14:07
PROVIDERS: ATTEND Obstetrics & Gynecology
DX: Z04.89 Encounter for examination and observation for other specified reasons (principal); O13.3 Gestational [pregnancy-induced] hypertension without significant proteinuria, third trimester; O26.843 Uterine size-date discrepancy, third trimester; Z3A.29 29 weeks gestation of pregnancy
CPT/HCPCS: 76816

== ENCOUNTER → 2019-10-05 | Outpatient (CLI) | payer MEDICAID | LOC: RAD 08:52 | PROVIDERS: ATTEND Nurse Practitioner Community Health | DX: M54.14 Radiculopathy, thoracic region (principal) ==

== ENCOUNTER 2019-10-13 12:32 | Outpatient (CLI) | payer MEDICAID ==
[~2019-10-13] VITALS: Ht 168 cm; Wt 127.4 kg
[2019-10-13] VITALS (10 sets, daily range): BP systolic 136–152; BP diastolic 77–102
--- NOTE | 2019-10-13 12:15 | NUR ---
FERCHOHANSEL Victoria presented to unit via ambulation from clinic, accompanied by nurse, with c/o ELEVATED BLOOD PRESSURE. HANSEL BRANTLEY weighed, gowned, voided, and to bed. EFHM and TOCO applied, VS taken. FERCHOHANSEL Victoria oriented to bed controls, call light, TV, heat, and A/C controls.
[2019-10-13] MEDS ORDERED: LACTATED RINGERS 1,000 ML IV SCH (12:45)
--- NOTE | 2019-10-13 13:15 | NUR ---
Dr. Boogie contacted for order clarification
[2019-10-13] MEDS: BETAMETHASONE ACE/NA PHOS 6 MG/ML (CELESTONE SOLUSPAN) IM SCH (14:10)
--- NOTE | 2019-10-13 15:56 | NUR ---
Dr Boogie called to unit to check on pt. notified of VS, FHR, pt c/o occasional headache but no other s/sx. No new orders rec'd.
--- NOTE | 2019-10-13 16:15 | NUR ---
RN to room to check on pt. Pt tearful and frustrated. Pt c/o being hot and having pain in hip. Pt wanting to get up and move around. Fan provided to pt at this time. Pt instructed that she is on bedrest with bathroom privileges per order and that with her elevated blood pressures she is at risk of stroke, seizure, delivery, etc. Pt verbalizes understanding but remains frustrated. Offered to call for something for hip pain - pt refuses, states nothing will help. Denies further needs or concerns.
--- NOTE | 2019-10-13 17:49 | NUR ---
Dr Boogie called to unit to check on pt. updated on VS. No further orders rec'd at this time.
--- NOTE | 2019-10-13 19:33 | NUR ---
Pt off monitor and up to bathroom, pt states "I'm going for a walk. I know you guys dont want me to, you guys have told me why, but my hip hurts in that bed." RN voiced understanding, and reviewed risks and treatments for elevated blood pressure and risks involved, pt again voices understanding and realizes her orders are for bathroom privileges only and that her actions are against medical advice. Pt wants to go downstairs, rn states she cant allow her to leave the unit with iv access. Pt off unit at this time, accompanied by adult female.
--- NOTE | 2019-10-13 19:52 | NUR ---
Pt ambulatory to unit at this time, accompanied by adult female. Walks one lap around pp unit and returns to room. 1954 - pt placed back on monitors, as pt speaks to rn, smell of cigarette smoke is noted on breath. vss, see int.
[2019-10-14] VITALS (20 sets, daily range): BP systolic 123–174; BP diastolic 65–97
--- NOTE | 2019-10-14 07:34 | Progress Note ---
NIDA MONGE,MED STUDENT 10/14/19 0734: Subjective Date Seen by a Provider: Oct 14, 2019 Time Seen by a Provider: 07:15 Subjective/Events-last exam Patient seen and examined. She reports that she is feeling better and no longer has a headache and denies having any nausea or vomiting this morning. She denies having any lightheadedness, dizziness or feelings that she is going to pass out. Patient says that urine is a light color then it was yesterday but is still yellow. Per patient "baby has been moving a lot today." Review of Systems General: No Chills, No Fatigue HEENT: No Head Aches Pulmonary: Cough (chronic cough ) Cardiovascular: No: Chest Pain, Palpitations, Lt Headedness Gastrointestinal: No: Nausea, Vomiting Genitourinary: No Dysuria, No Incontinence Objective Exam Last Set of Vital Signs Vital Signs Date Time Temp Pulse Resp B/P (MAP) Pulse Ox O2 Delivery O2 Flow Rate FiO2 10/14/19 07:00 116 128/72 (90) 10/13/19 20:05 37.0 10/13/19 13:45 20 10/13/19 12:15 98 Room Air Capillary Refill : Less Than 3 Seconds General: Alert, Oriented X3, Cooperative, No Acute Distress Lungs: Clear to Auscultation, Normal Air Movement Heart: Other (tachycardia ) Abdomen: Soft, Other Extremities: No Clubbing, No Cyanosis, Other (+1 pitting in low legs) Skin: Other (Red) Psych/Mental Status: Mood NL Assessment/Plan Assessment/Plan Assess & Plan/Chief Complaint Gestational hypertension * Hypertension has resolved and patient is no normotensive to pre-hypertensive. * continue fluids and continue to monitor for changes. * Monitor fetus to ensure safety * Wait on 24hr urine collecting before sending home. If improvement, then recommend sending pt home and counseling on staying hydrated and that she should return in similar symptoms reoccur. Proteinuria * Wait for 24hr urine collect to assess proteinuria and BUN/Cr FERMÍN SALDANA DO 10/14/19 1313: Assessment/Plan Assessment/Plan Assess & Plan/Chief Complaint I have examined the patient and concur with the diagnosis Supervisory-Addendum Brief Verification & Attestation Participated in pt care: physical Personally performed: exam, history Care discussed with: Medical Student Procedures: n/a Will monitor blood pressures, continue bed rest NIDA MONGE,MED STUDENT Oct 14, 2019 07:34 FERMÍN SALDANA DO Oct 14, 2019 13:13
--- NOTE | 2019-10-14 09:05 | NUR ---
Pt wanting off floor to smoke. Pt educated on risk. Pt verbalized understanding but went to smoke. [address] Boogie. No new orders.
--- NOTE | 2019-10-14 09:15 | NUR ---
Dr Boogie to floor. Pt in shower at this time. Dr Boogie will return.
[2019-10-14] MEDS ORDERED: LABETALOL 200 MG (NORMODYNE) TAB PO SCH (12:15)
--- NOTE | 2019-10-14 12:15 | NUR ---
Notified Dr Boogie of B/P's 180/89 pt repositioned b/p 166/81, 177/95 HOB down 157/81. "0" nst q shift and prn . Labetalol 200mg po BID.
[2019-10-14] MEDS ORDERED: LABE200T7 PO (13:15)
--- NOTE | 2019-10-14 13:17 | Discharge Inst-Women's Service ---
Discharge Inst-Women's Serv Depart Medication/Instructions New, Converted or Re-Newed RX: Transmitted to Pharmacy Final Diagnosis gestational hypertension 30 week gestation Problems Reviewed?: Yes Consults/Follow Up Additional Follow Up: Yes (next week for NST/appointment Be seen in clinic twice weekly) Activity Activity: Bedrest NO SMOKING: NO SMOKING Nothing Inside Vagina: No Douching, No [place], No Tampons Diet Discharge Diet: Low Sodium Diet Symptoms to Report to : Eyesight Changes, Weight Gain Over 2 Pounds Labor vaginal bleeding leakage of fluid decreased movement headaches not controlled by tylenol For Any Problems or Questions: Contact Your Physician, Go to Emergency Room FERMÍN SALDANA DO Oct 14, 2019 13:17
[2019-10-14] MEDS: BETAMETHASONE ACE/NA PHOS 6 MG/ML (CELESTONE SOLUSPAN) IM SCH (14:04)
--- NOTE | 2019-10-14 14:15 | NUR ---
Dr Boogie here to see pt. Discussed discharge with pt. RX, bedrest at home, b/p medications. Pt verbalized understanding.
--- NOTE | 2019-10-14 14:30 | NUR ---
Dr Boogie here and noted strip.
--- NOTE | 2019-10-14 15:50 | NUR ---
Report given to Palomo Albert RN. Yumiko Albert assuming care of pt.
[2019-10-14 16:19] LABS: PROTEIN URINE MG/DL < 6 MG/DL (6-12)
--- NOTE | 2019-10-14 16:20 | NUR ---
US here for BPP
--- NOTE | 2019-10-14 16:34 | NUR ---
Dr Boogie notified of BPP 03/17, NORBERT 17. Discharge orders rec'd.
--- NOTE | 2019-10-14 16:47 | NUR ---
Discharge instructions explained to pt with copy provided to pt. Emphasis of importance in following bedrest instructions and pre-eclampsia s/sx to look for. Pt verbalizes understanding, signs to verify. Denies questions or concerns at this time. Pt refuses wheelchair, ambulates off unit to private vehicle. No s/s of distress noted. Addendum: 10/14/19 at 1717 by GIN ANTONIO RN Pt notified of prescription transmitted to [facility] pharmacy.
[2019-10-14 16:48] LABS: TOTAL VOLUME,URINE 4660 ML
--- NOTE | 2019-10-14 17:13 | Diagnostic Imaging Report ---
INDICATION: Gestational hypertension. FINDINGS: Transabdominal imaging of the pelvis demonstrates single live intrauterine . Gestational age by last menstrual period is 30 weeks 1 day. Heart rate is 160 bpm. Normal movements, breathing, tone and NORBERT are present. NORBERT is 17.8. Presentation at this time is cephalic. IMPRESSION: The biophysical profile is 8 out of 8 with a cephalic presentation at this time. Dictated by: Dictated on workstation # [id number]
== END 2019-10-14 16:47 | disposition home or self-care (01) ==
LOC: WSo 12:32 → LDRP 12:34 → WSo 10-14 16:47
PROVIDERS: ATTEND Obstetrics & Gynecology
DX: O13.9 Gestational [pregnancy-induced] hypertension without significant proteinuria, unspecified trimester (principal)
CPT/HCPCS: 36415; 76819; 82043; 84156

== ENCOUNTER → 2019-11-03 | Outpatient (CLI) | payer MEDICAID ==
[~2019-11-03] MED LIST changes: +LABE200T7 PO
== END ==
LOC: LABNPT 10:24
PROVIDERS: ATTEND Obstetrics & Gynecology
DX: O13.3 Gestational [pregnancy-induced] hypertension without significant proteinuria, third trimester (principal)
CPT/HCPCS: 82570; 84156

== ENCOUNTER 2019-11-25 12:20 | Inpatient (IN) | payer MEDICAID ==
[2019-11-25] VITALS (29 sets, daily range): BP systolic 138–185; BP diastolic 72–97
[~2019-11-25] VITALS: Ht 167.6 cm; Wt 133.8 kg
--- NOTE | 2019-11-25 12:20 | NUR ---
HANSEL BRANTLEY presented to unit via from home, accompanied by sister, with c/o PRECLAMPSIA. HANSEL BRANTLEY weighed, gowned, voided, and to bed. EFHM and TOCO applied, VS taken. HANSEL BRANTLEY Victoria oriented to bed controls, call light, TV, heat, and A/C controls.
[2019-11-25] MEDS ORDERED: AMPICILLIN FOR IV USE 2,000 MG in WATER (STERILE) FOR INJECTION 14.8 ML IV SCH (12:34)
--- OUTSIDE RECORDS SUMMARY | 2019-11-25 12:40 | XMS REPORT | Continuity of Care Document ---
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 05/09/2019 ARIELLE RODRIGUEZ MD Ot O99. 89 OTH DISEASES AND CONDITIONS COMPL PREG/C 05/09/2019 ARIELLE RODRIGUEZ MD Ot R11. 2 NAUSEA WITH VOMITING, UNSPECIFIED 05/09/2019 ARIELLE RODRIGUEZ MD Ot Z3A. 01 LESS THAN 8 WEEKS GESTATION OF 05/09/2019 ARIELLE RODRIGUEZ MD Ot Z80. 41 FAMILY HISTORY OF MALIGNANT NEOPLASM OF 05/09/2019 ARIELLE RODRIGUEZ MD Ot Z80. 49 FAMILY HISTORY OF MALIGNANT NEOPLASM OF 05/09/2019 ARIELLE RODRIGUEZ MD Ot Z87.820 PERSONAL HISTORY OF TRAUMATIC BRAIN INJU 05/09/2019 ARIELLE RODRIGUEZ MD Ot Z90. 49 ACQUIRED ABSENCE OF OTHER SPECIFIED PART 05/09/2019 ARIELLE RODRIGUEZ MD Ot Z90. 89 ACQUIRED ABSENCE OF OTHER ORGANS 05/29/2019 JACINTO SOSA Ot B96.89 OTH BACTERIAL AGENTS THE CAUSE OF DIS 05/29/2019 JACINTO SOSA Ot F17.210 NICOTINE DEPENDENCE, CIGARETTES, UNCOMPL 05/29/2019 JACINTO SOSA Ot F31.9 BIPOLAR DISORDER, UNSPECIFIED 05/29/2019 JACINTO SOSA Ot M06.9 RHEUMATOID ARTHRITIS, UNSPECIFIED 05/29/2019 JACINTO SOSA Ot N76.0 ACUTE VAGINITIS 05/29/2019 JACINTO SOSA Ot O20.0 THREATENED 05/29/2019 JACINTO SOSA Ot O23.591 INFECTION OTH PRT GENITL TRCT IN PREGNAN 05/29/2019 JACINTO SOSA Ot O99.331 SMOKING (TOBACCO) COMPLICATING 05/29/2019 JACINTO SOSA Ot O99.341 OTH MENTAL DISORDERS COMPLICATING PREGNA 05/29/2019 JACINTO SOSA Ot O99.89 OTH DISEASES AND CONDITIONS COMPL PREG/C 05/29/2019 JACINTO SOSA Ot Z3A.12 12 WEEKS GESTATION OF 05/29/2019 JACINTO SOSA Ot Z80.41 FAMILY HISTORY OF MALIGNANT NEOPLASM OF 05/29/2019 JACINTO SOSA Ot Z80.49 FAMILY HISTORY OF MALIGNANT NEOPLASM OF 05/29/2019 JACINTO SOSA Ot Z82.49 FAMILY HX OF ISCHEM HEART DIS AND OTH DI 05/29/2019 JACINTO SOSA Ot Z87.820 PERSONAL HISTORY OF TRAUMATIC BRAIN INJU 05/29/2019 JACINTO SOSA Ot Z90.49 ACQUIRED ABSENCE OF OTHER SPECIFIED PART 05/29/2019 JACINTO SOSA Ot Z90.89 ACQUIRED ABSENCE OF OTHER ORGANS 06/01/2019 JACINTO SOSA Ot B96.89 OTH BACTERIAL AGENTS THE CAUSE OF DIS 06/01/2019 JACINTO SOSA Ot F17.210 NICOTINE DEPENDENCE, CIGARETTES, UNCOMPL 06/01/2019 JACINTO SOSA Ot F31.9 BIPOLAR DISORDER, UNSPECIFIED 06/01/2019 JACINTO SOSA Ot M06.9 RHEUMATOID ARTHRITIS, UNSPECIFIED 06/01/2019 JACINTO SOSA Ot N76.0 ACUTE VAGINITIS 06/01/2019 JACINTO SOSA Ot O20.0 THREATENED 06/01/2019 JACINTO SOSA Ot O23.591 INFECTION OTH PRT GENITL TRCT IN PREGNAN 06/01/2019 JACINTO SOSA Ot O99.331 SMOKING (TOBACCO) COMPLICATING 06/01/2019 JACINTO SOSA Ot O99.341 OTH MENTAL DISORDERS COMPLICATING PREGNA 06/01/2019 JACINTO SOSA Ot O99.89 OTH DISEASES AND CONDITIONS COMPL PREG/C 06/01/2019 JACINTO SOSA Ot Z3A.12 12 WEEKS GESTATION OF 06/01/2019 KRYSTAL EDMONDJACINTO Walt Ot Z80.41 FAMILY HISTORY OF MALIGNANT NEOPLASM OF 06/01/2019 KRYSTAL EDMOND JACINTO Walt Ot Z80.49 FAMILY HISTORY OF MALIGNANT NEOPLASM OF 06/01/2019 KRYSTAL EDMOND JACINTO L Ot Z82.49 FAMILY HX OF ISCHEM HEART DIS AND OTH DI 06/01/2019 KRYSTAL EDMOND JACINTO Walt Ot Z87.820 PERSONAL HISTORY OF TRAUMATIC BRAIN INJU 06/01/2019 KRYSTAL EDMOND JACINTO L Ot Z90.49 ACQUIRED ABSENCE OF OTHER SPECIFIED PART 06/01/2019 KRYSTAL EDMOND JACINTO Walt Ot Z90.89 ACQUIRED ABSENCE OF OTHER ORGANS 06/15/2019 MERLENE OCAMPO MD S Ot O20. 0 THREATENED 06/15/2019 MERLENE OCAMPO MD Ot Z3A. 10 10 WEEKS GESTATION OF 08/05/2019 MERLENE OCAMPO MD S Ot O20. 0 THREATENED 08/05/2019 MERLENE OCAMPO MD S Ot Z3A. 10 10 WEEKS GESTATION OF 08/08/2019 MERLENE OCAMPO MD S Ot O20. 0 THREATENED 08/08/2019 MERLENE OCAMPO MD S Ot Z3A. 10 10 WEEKS GESTATION OF 08/11/2019 SALDANA DO, FERMÍN C Ot O20.0 THREATENED 08/11/2019 SALDANA DO, FERMÍN C Ot O23.5 12 INFECTIONS OF CERVIX IN , SECON 08/11/2019 SALDANA DO, FERMÍN C Ot O26.8 92 OTH RELATED CONDITIONS, SECOND 08/11/2019 SALDANA DO, FERMÍN C Ot R10.2 PELVIC AND PERINEAL PAIN 08/11/2019 SALDANA DO, FERMÍN C Ot Z3A.2 1 21 WEEKS GESTATION OF 08/25/2019 SALDANA DO, FERMÍN C Ot O20.0 THREATENED 08/25/2019 SALDANA DO, FERMÍN C Ot O23.5 12 INFECTIONS OF CERVIX IN , SECON 08/25/2019 SALDANA DO, FERMÍN C Ot O26.8 92 OTH RELATED CONDITIONS, SECOND 08/25/2019 SALDANA DO, FERMÍN C Ot R10.2 PELVIC AND PERINEAL PAIN 08/25/2019 SALDANA DO, FERMÍN C Ot Z3A.2 1 21 WEEKS GESTATION OF 09/09/2019 [facility], SUZE [place] Ot F17.210 NICOTINE DEPENDENCE, CIGARETTES, UNCOMPL 09/09/2019 [facility], [facility] [place] Ot G89.29 OTHER CHRONIC PAIN 09/09/2019 [facility] [place] Ot M25.552 PAIN IN LEFT HIP 09/09/2019 [facility], [facility] [place] Ot M53.3 SACROCOCCYGEAL DISORDERS, NOT ELSEWHERE 09/09/2019 [facility] SU[facility] [place] Ot M54.10 RADICULOPATHY, SITE UNSPECIFIED 09/09/2019 [facility], [facility] [place] Ot M54.2 CERVICALGIA 09/09/2019 [facility] K Ot M54.5 LOW BACK PAIN 09/09/2019 [facility], [facility] [place] Ot O26.892 OTH RELATED CONDITIONS, SECOND 09/09/2019 [facility] [place] Ot O99.332 SMOKING (TOBACCO) COMPLICATING 09/09/2019 [facility] [place] Ot O99.89 OTH DISEASES AND CONDITIONS COMPL PREG/C 09/09/2019 [facility] [place] Ot R20.2 PARESTHESIA OF SKIN 09/09/2019 [facility] [place] Ot Z3A.25 25 WEEKS GESTATION OF 09/09/2019 [facility] [place] Ot 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 0 THREATENED 09/10/2019 MERLENE OCAMPO MD Ot Z3A. 10 10 WEEKS GESTATION OF 09/10/2019 FERMÍN SALDANA DO Ot O20.0 THREATENED 09/10/2019 FERMÍN SALDANA DO Ot O23.5 12 INFECTIONS OF CERVIX IN , SECON 09/10/2019 FERMÍN SALDANA DO Ot O26.8 92 OTH RELATED CONDITIONS, SECOND 09/10/2019 SALDANA DO, FERMÍN C Ot R10.2 PELVIC AND PERINEAL PAIN 09/10/2019 SALDANA DO, FERMÍN C Ot Z3A.2 1 21 WEEKS GESTATION OF 09/19/2019 SEALS DO, LUIS E Ot Z34.8 0 ENCOUNTER FOR SUPRVSN OF NORMAL PREGNANC 09/19/2019 SEALS DO, LUIS E Ot Z3A.0 0 WEEKS OF GESTATION OF NOT SPEC 09/20/2019 SEALS DO, LUIS E Ot Z34.8 0 ENCOUNTER FOR SUPRVSN OF NORMAL PREGNANC 09/20/2019 SEALS DO, LUIS E Ot Z3A.0 0 WEEKS OF GESTATION OF NOT SPEC 09/22/2019 SALDANA DO, FERMÍN C Ot O16.3 UNSPECIFIED MATERNAL HYPERTENSION, THIRD 09/22/2019 SALDANA DO, FERMÍN C Ot O36.8120 DECREASED MOVEMENTS, SECOND TRIMES 09/22/2019 SALDANA DO, FERMÍN C Ot Z3A.2 6 26 WEEKS GESTATION OF 10/06/2019 SALDANA DO FERMÍN C Ot O13.3 GESTATIONAL HTN W/O SIGNIFICANT PROTEINU 10/06/2019 SALDANA DO, FERMÍN C Ot O26.8 43 UTERINE SIZE-DATE DISCREPANCY, THIRD TRI 10/06/2019 SALDANA DO FERMÍN C Ot Z04.8 9 ENCOUNTER FOR EXAMINATION AND OBSERVATIO 10/06/2019 SALDANA DO FERMÍN C Ot Z3A.2 9 29 WEEKS GESTATION OF 10/13/2019 DAMARIS KEARNEY, MERLENE Thomas Ot O20. 0 THREATENED 10/13/2019 DAMARIS KEARNEY, MERLENE Thomas Ot Z3A. 10 10 WEEKS GESTATION OF 10/13/2019 SALDANA DO FERMÍN C Ot O20.0 THREATENED 10/13/2019 SALDANA DO FERMÍN C Ot O23.5 12 INFECTIONS OF CERVIX IN , SECON 10/13/2019 SALDANA DO FERMÍN C Ot O26.8 92 OTH RELATED CONDITIONS, SECOND 10/13/2019 SALDANA DO FERMÍN C Ot R10.2 PELVIC AND PERINEAL PAIN 10/13/2019 SALDANA DO, FERMÍN C Ot Z3A.2 1 21 WEEKS GESTATION OF 10/13/2019 SALDANA DO, FERMÍN C Ot O16.3 UNSPECIFIED MATERNAL HYPERTENSION, THIRD 10/13/2019 SALDANA DO, FERMÍN C Ot O36.8120 DECREASED MOVEMENTS, SECOND TRIMES 10/13/2019 SALDANA DO, FERMÍN C Ot Z3A.2 6 26 WEEKS GESTATION OF 10/13/2019 CHANDRA KOENIG Ot M54.14 RADICULOPATHY, THORACIC REGION 10/13/2019 SALDANA DO, FERMÍN C Ot O13.3 GESTATIONAL HTN W/O SIGNIFICANT PROTEINU 10/13/2019 SALDANA DO, FERMÍN C Ot O26.8 43 UTERINE SIZE-DATE DISCREPANCY, THIRD TRI 10/13/2019 SALDANA DO, FERMÍN C Ot Z04.8 9 ENCOUNTER FOR EXAMINATION AND OBSERVATIO 10/13/2019 SALDANA DO, FERMÍN C Ot Z3A.2 9 29 WEEKS GESTATION OF 10/14/2019 SALDANA DO, FERMÍN C Ot O13.3 GESTATIONAL HTN W/O SIGNIFICANT PROTEINU 10/14/2019 SALDANA DO, FERMÍN C Ot O13.9 GESTATIONAL HTN W/O SIGNIFICANT PROTEINU 10/14/2019 SALDANA DO, FERMÍN C Ot Z3A.3 0 30 WEEKS GESTATION OF 10/14/2019 SALDANA DO, FERMÍN C Ot O13.9 GESTATIONAL HTN W/O SIGNIFICANT PROTEINU 10/28/2019 SALDANA DO, FERMÍN C Ot O16.3 UNSPECIFIED MATERNAL HYPERTENSION, THIRD 10/28/2019 SALDANA DO, FERMÍN C Ot O36.8120 DECREASED MOVEMENTS, SECOND TRIMES 10/28/2019 SALDANA DO, FERMÍN C Ot Z3A.2 6 26 WEEKS GESTATION OF 11/05/2019 SALDANA DO, FERMÍN C Ot O13.3 GESTATIONAL HTN W/O SIGNIFICANT PROTEINU Procedures Code Description [place] [address] MRI EXTREMITY JOINT, UPPER RIGHT, W/O CONTRAST 07/02/2013 26115 INFL UENZA A & B (IN-HOUSE) 08/31/2013 29665 GC/C HLAM PROBE (STATE) 09/27/2013 04394 UA W / CULTURE IF INDICATED 09/27/2013 34559 PREG RENAY TEST, URINE (IN- HOUSE) 09/27/2013 82108 TRIC HOMONAS (IN-HOUSE) 09/27/2013 28340 CULT URE UROGENITAL 09/29/2013 54927 PAP SMEAR 10/04/2013 19514 US P ELVIC COMPL (REFLEX CPT- 14710) 10/05/2013 57943 UA L JUSTIN DIP 10/05/2013 59082 PREG RENAY TEST, URINE (IN- HOUSE) 10/05/2013 17875 XRAY FOREARM RIGHT 2 VIEWS 08/07/2014 Results Test Result Range CBC With Differential/Platelet - 6 10:41 WBC 10.7 x10E3/uL 3.4-10.8 RBC 5.23 x10E6/uL 3.77-5.28 Hemoglobin 14.6 g/dL 11.1-15.9 Hematocrit 44.3 % 34.0-46.6 MCV 85 fL 79-97 MCH 27.9 pg 26.6-33.0 MCHC 33.0 g/dL 31.5-35.7 RDW 14.7 % 12.3-15.4 Platelets 166 x10E3/uL 150-379 Neutrophils 73 % Lymphs 17 % Monocytes 7 % Eos 3 % Basos 0 % Neutrophils (Absolute) 7.8 x10E3/uL 1.4- 7.0 Lymphs (Absolute) 1.8 x10E3/uL 0.7-3.1 Monocytes(Absolute) 0.7 x10E3/uL 0.1-0.9 Eos (Absolute) 0.3 x10E3/uL 0.0-0.4 Baso (Absolute) 0.0 x10E3/uL 0.0-0.2 Immature Granulocytes 0 % Immature Grans (Abs) 0.0 x10E3/uL 0.0-0. 1 Genital Culture, Routine - 08/09/16 08:0 5 Genital Culture, Routine Note Pap Lb, rfx HPV ASCU - 08/09/16 08:05 DIAGNOSIS: Comment Specimen adequacy: Comment Clinician provided ICD10: Comment Performed by: Comment . . Pathologist provided ICD10: Comment Note: Comment . Comment THYROID ANALYZER - 08/31/17 11:59 TSH 2.02 mIU/L NRG TSH w/ FREE T4 - 10/25/18 16:34 TSH 1.36 mIU/L NRG T4, FREE 1.0 ng/dL 0.8-1.8 CBC - 10/25/18 16:34 WHITE BLOOD CELL COUNT 11.0 Thousand/uL 3.8-10.8 RED BLOOD CELL COUNT 5.41 Million/uL 3.8 0-5.10 HEMOGLOBIN 15.3 g/dL 11.7-15.5 HEMATOCRIT 47.5 % 35.0-45.0 MCV 87.8 fL 80.0-100.0 MCH 28.3 pg 27.0-33.0 MCHC 32.2 g/dL 32.0-36.0 RDW 13.4 % 11.0-15.0 PLATELET COUNT 250 Thousand/uL 140-400 MPV 11.0 fL 7.5-12.5 ABSOLUTE NEUTROPHILS 6721 cells/uL 1500- 7800 ABSOLUTE LYMPHOCYTES 3300 cells/uL 850-3 900 ABSOLUTE MONOCYTES 638 cells/uL 200-950 ABSOLUTE EOSINOPHILS 264 cells/uL 15-500 ABSOLUTE BASOPHILS 77 cells/uL 0-200 NEUTROPHILS 61.1 % NRG LYMPHOCYTES 30.0 % NRG MONOCYTES 5.8 % NRG EOSINOPHILS 2.4 % NRG BASOPHILS 0.7 % NRG CBC - 03/03/19 17:18 WHITE BLOOD CELL COUNT 9.6 Thousand/uL 3 .8-10.8 RED BLOOD CELL COUNT 4.91 Million/uL 3.8 0-5.10 HEMOGLOBIN 14.3 g/dL 11.7-15.5 HEMATOCRIT 43.0 % 35.0-45.0 MCV 87.6 fL 80.0-100.0 MCH 29.1 pg 27.0-33.0 MCHC 33.3 g/dL 32.0-36.0 RDW 13.6 % 11.0-15.0 PLATELET COUNT 221 Thousand/uL 140-400 MPV 11.3 fL 7.5-12.5 ABSOLUTE NEUTROPHILS 5309 cells/uL 1500- 7800 ABSOLUTE LYMPHOCYTES 3350 cells/uL 850-3 900 ABSOLUTE MONOCYTES 566 cells/uL 200-950 ABSOLUTE EOSINOPHILS 298 cells/uL 15-500 ABSOLUTE BASOPHILS 77 cells/uL 0-200 NEUTROPHILS 55.3 % NRG LYMPHOCYTES 34.9 % NRG MONOCYTES 5.9 % NRG EOSINOPHILS 3.1 % NRG BASOPHILS 0.8 % NRG GC/CHLAMYDIA (SWAB OR URINE)-RAPID - 15:21 CHLAMYDIA TRACHOMATIS RNA, TMA NOT DETECTED NOT DETECTED NEISSERIA GONORRHOEAE RNA, TMA NOT DETECTED NOT DETECTED COMMENT NRG Complete blood count (CBC) with automate d white blood cell (WBC) differential - 04/29/19 07:15 Blood leukocytes automated count (number/volume) 9.1 10*3/uL 4.3-11.0 Blood erythrocytes automated count (number/volume) 4.73 10*6/uL 4.35-5.85 Venous blood hemoglobin measurement (mass/volume) 13.7 g/dL 11.5-16.0 Blood hematocrit (volume fraction) 42 % 35-52 Automated erythrocyte mean corpuscular volume 89 [ foz_us] 80-99 Automated erythrocyte mean corpuscular h emoglobin (mass per erythrocyte) 29 pg 25-34 Automated erythrocyte mean corpuscular h emoglobin concentration measurement (mass/volume) 33 g/dL 32-36 Automated erythrocyte distribution width ratio 15. 8 % 10.0- 14.5 Automated blood platelet count (count/volume) 186 10*3/uL 130-400 Automated blood platelet mean volume measurement 10.7 [foz_us] 7.4-10.4 Automated blood neutrophils/100 leukocytes 66 % 42-75 Automated blood lymphocytes/100 leukocytes 25 % 12-44 Blood monocytes/100 leukocytes 6 % 0-12 Automated blood eosinophils/100 leukocytes 3 % 0-10 Automated blood basophils/100 leukocytes 0 % 0-10 Blood neutrophils automated count (number/volume) 6.0 10*3 1.8-7.8 Blood lymphocytes automated count (number/volume) 2.3 10*3 1.0-4.0 Blood monocytes automated count (number/volume) 0. 5 10*3 0.0-1.0 Automated eosinophil count 0.3 10*3/uL 0 .0-0.3 Automated blood basophil count (count/volume) 0.0 10*3/uL 0.0-0.1 Whole blood basic metabolic panel - 04/11 07:15 Serum or plasma sodium measurement (moles/volume) 136 mmol/L 135-145 Serum or plasma potassium measurement (moles/volume) 3.9 mmol/L 3.6-5.0 Serum or plasma chloride measurement (moles/volume) 103 mmol/L 98-107 Carbon dioxide 24 mmol/L 21-32 Serum or plasma anion gap determination (moles/volume) 9 mmol/L 5-14 Serum or plasma urea nitrogen measurement (mass/volume ) 8 mg/dL 7-18 Serum or plasma creatinine measurement (mass/volume) 0.72 mg/dL 0.60-1.30 Serum or plasma urea nitrogen/creatinine mass ratio 11 NRG Serum or plasma creatinine measurement w ith calculation of estimated glomerular filtration rate > NRG Serum or plasma glucose measurement (mass/volume) 163 mg/dL 70-105 Serum or plasma calcium measurement (mass/volume) 9.6 mg/dL 8.5-10.1 Serum or plasma choriogonadotropin measu rement (units/volume) - 04/29/19 07:15 Serum or plasma choriogonadotropin measurement (units/ volume) 3285 m[iU]/mL <5 Influenza virus A and B antigen detectio n - 04/29/19 07:32 FLU RESULT NEGATIVE FOR INFLUENZA A AND B ANTIGENS BY IA NRG Complete urinalysis with reflex to cultu re - 04/29/19 07:48 Urine color determination YELLOW NRG Urine clarity determination CLEAR NR G Urine pH measurement by test strip 6.5 5-9 Specific gravity of urine by test strip 1.010 1.016-1.022 Urine protein assay by test strip, semi-quantitative NEGATIVE NEGATIVE Urine glucose detection by automated test strip NE GATIVE NEGATIVE Erythrocytes detection in urine sediment by light micr oscopy NEGATIVE NEGATIVE Urine ketones detection by automated test strip NE GATIVE NEGATIVE Urine nitrite detection by test strip NEGATIVE NEGATIVE Urine total bilirubin detection by test strip NEGA TIVE NEGATIVE Urine urobilinogen measurement by automated test strip (mass/volume) NORMAL NORMAL Urine leukocyte esterase detection by dipstick NEG ATIVE NEGATIVE Automated urine sediment erythrocyte cou nt by microscopy (number/high power field) NONE NRG Automated urine sediment leukocyte count by microscopy (number/high power field) RARE NRG Bacteria detection in urine sediment by light microsco py NEGATIVE NRG Squamous epithelial cells detection in u rine sediment by light microscopy 0-2 NRG Crystals detection in urine sediment by light microsco py NONE NRG Casts detection in urine sediment by light microscopy NONE NRG Mucus detection in urine sediment by light microscopy NEGATIVE NRG Complete urinalysis with reflex to culture NO NRG Complete blood count (CBC) with automate d white blood cell (WBC) differential - 05/06/19 22:11 Blood leukocytes automated count (number/volume) 14.1 10*3/uL 4.3-11.0 Blood erythrocytes automated count (number/volume) 5.22 10*6/uL 4.35-5.85 Venous blood hemoglobin measurement (mass/volume) 15.1 g/dL 11.5-16.0 Blood hematocrit (volume fraction) 45 % 35-52 Automated erythrocyte mean corpuscular volume 86 [ foz_us] 80-99 Automated erythrocyte mean corpuscular h emoglobin (mass per erythrocyte) 29 pg 25-34 Automated erythrocyte mean corpuscular h emoglobin concentration measurement (mass/volume) 34 g/dL 32-36 Automated erythrocyte distribution width ratio 15. 5 % 10.0- 14.5 Automated blood platelet count (count/volume) 219 10*3/uL 130-400 Automated blood platelet mean volume measurement 10.7 [foz_us] 7.4-10.4 Automated blood neutrophils/100 leukocytes 63 % 42-75 Automated blood lymphocytes/100 leukocytes 29 % 12-44 Blood monocytes/100 leukocytes 6 % 0-12 Automated blood eosinophils/100 leukocytes 1 % 0-10 Automated blood basophils/100 leukocytes 0 % 0-10 Blood neutrophils automated count (number/volume) 8.9 10*3 1.8-7.8 Blood lymphocytes automated count (number/volume) 4.1 10*3 1.0-4.0 Blood monocytes automated count (number/volume) 0. 9 10*3 0.0-1.0 Automated eosinophil count 0.2 10*3/uL 0 .0-0.3 Automated blood basophil count (count/volume) 0.0 10*3/uL 0.0-0.1 Comprehensive metabolic panel - 05/06/19 22:11 Serum or plasma sodium measurement (moles/volume) 137 mmol/L 135-145 Serum or plasma potassium measurement (moles/volume) 3.7 mmol/L 3.6-5.0 Serum or plasma chloride measurement (moles/volume) 99 mmol/L 98-107 Carbon dioxide 25 mmol/L 21-32 Serum or plasma anion gap determination (moles/volume) 13 mmol/L 5-14 Serum or plasma urea nitrogen measurement (mass/volume ) 9 mg/dL 7-18 Serum or plasma creatinine measurement (mass/volume) 0.82 mg/dL 0.60-1.30 Serum or plasma urea nitrogen/creatinine mass ratio 11 NRG Serum or plasma creatinine measurement w ith calculation of estimated glomerular filtration rate > NRG Serum or plasma glucose measurement (mass/volume) 131 mg/dL 70-105 Serum or plasma calcium measurement (mass/volume) 10.0 mg/dL 8.5-10.1 Serum or plasma total bilirubin measurement (mass/volu me) 0.4 mg/dL 0.1-1.0 Serum or plasma alkaline phosphatase fito surement (enzymatic activity/volume) 70 U/L 40-136 Serum or plasma aspartate aminotransfera se measurement (enzymatic activity/volume) 17 U/L 5-34 Serum or plasma alanine aminotransferase measurement (enzymatic activity/volume) 28 U/L 0-55 Serum or plasma protein measurement (mass/volume) 7.3 g/dL 6.4-8.2 Serum or plasma albumin measurement (mass/volume) 4.1 g/dL 3.2-4.5 CALCIUM CORRECTED 9.9 mg/dL 8.5-10.1 Manual absolute plasma cell count - 04/11 02/25 22:11 Blood monocytes/100 leukocytes 2 % NRG Manual blood segmented neutrophils/100 leukocytes 62 % NRG Blood band neutrophils/100 leukocytes 3 % NRG Manual blood lymphocytes/100 leukocytes 25 % NRG Manual eosinophils/100 leukocytes in nose 2 % NRG Manual blood basophils/100 leukocytes 0 % NRG Blood lymphocytes variant/100 leukocytes 6 % NRG Blood anisocytosis detection by light microscopy S LIGHT NRG Blood toxic granules detection by light microscopy 1+ NRG Complete urinalysis with reflex to cultu re - 05/06/19 22:16 Urine color determination YELLOW NRG Urine clarity determination CLEAR NR G Urine pH measurement by test strip 6 5-9 Specific gravity of urine by test strip 1.020 1.016-1.022 Urine protein assay by test strip, semi-quantitative 2+ NEGATIVE Urine glucose detection by automated test strip NE GATIVE NEGATIVE Erythrocytes detection in urine sediment by light micr oscopy NEGATIVE NEGATIVE Urine ketones detection by automated test strip NE GATIVE NEGATIVE Urine nitrite detection by test strip NEGATIVE NEGATIVE Urine total bilirubin detection by test strip NEGA TIVE NEGATIVE Urine urobilinogen measurement by automated test strip (mass/volume) NORMAL NORMAL Urine leukocyte esterase detection by dipstick NEG ATIVE NEGATIVE Automated urine sediment erythrocyte cou nt by microscopy (number/high power field) NONE NRG Automated urine sediment leukocyte count by microscopy (number/high power field) NONE NRG Bacteria detection in urine sediment by light microsco py TRACE NRG Squamous epithelial cells detection in u rine sediment by light microscopy 0-2 NRG Crystals detection in urine sediment by light microsco py NONE NRG Casts detection in urine sediment by light microscopy PRESENT NRG Mucus detection in urine sediment by light microscopy SMALL NRG Complete urinalysis with reflex to culture NO NRG Hyaline casts detection in urine sediment by light hannah roscopy 2-5 NRG CULTURE, URINE - 05/25/19 15:47 CULTURE, URINE, ROUTINE SEE NOTE NRG Complete urinalysis with reflex to cultu re - 05/29/19 16:17 Urine color determination YELLOW NRG Urine clarity determination CLEAR NR G Urine pH measurement by test strip 7 5-9 Specific gravity of urine by test strip 1.005 1.016-1.022 Urine protein assay by test strip, semi-quantitative NEGATIVE NEGATIVE Urine glucose detection by automated test strip NE GATIVE NEGATIVE Erythrocytes detection in urine sediment by light micr oscopy NEGATIVE NEGATIVE Urine ketones detection by automated test strip NE GATIVE NEGATIVE Urine nitrite detection by test strip NEGATIVE NEGATIVE Urine total bilirubin detection by test strip NEGA TIVE NEGATIVE Urine urobilinogen measurement by automated test strip (mass/volume) NORMAL NORMAL Urine leukocyte esterase detection by dipstick NEG ATIVE NEGATIVE Automated urine sediment erythrocyte cou nt by microscopy (number/high power field) NONE NRG Automated urine sediment leukocyte count by microscopy (number/high power field) NONE NRG Bacteria detection in urine sediment by light microsco py NEGATIVE NRG Squamous epithelial cells detection in u rine sediment by light microscopy 2-5 NRG Crystals detection in urine sediment by light microsco py NONE NRG Casts detection in urine sediment by light microscopy NONE NRG Mucus detection in urine sediment by light microscopy NEGATIVE NRG Complete urinalysis with reflex to culture NO NRG Complete blood count (CBC) with automate d white blood cell (WBC) differential - 05/29/19 16:32 Blood leukocytes automated count (number/volume) 8.4 10*3/uL 4.3-11.0 Blood erythrocytes automated count (number/volume) 4.66 10*6/uL 4.35-5.85 Venous blood hemoglobin measurement (mass/volume) 13.6 g/dL 11.5-16.0 Blood hematocrit (volume fraction) 41 % 35-52 Automated erythrocyte mean corpuscular volume 88 [ foz_us] 80-99 Automated erythrocyte mean corpuscular h emoglobin (mass per erythrocyte) 29 pg 25-34 Automated erythrocyte mean corpuscular h emoglobin concentration measurement (mass/volume) 33 g/dL 32-36 Automated erythrocyte distribution width ratio 14. 5 % 10.0- 14.5 Automated blood platelet count (count/volume) 215 10*3/uL 130-400 Automated blood platelet mean volume measurement 11.0 [foz_us] 7.4-10.4 Automated blood neutrophils/100 leukocytes 63 % 42-75 Automated blood lymphocytes/100 leukocytes 28 % 12-44 Blood monocytes/100 leukocytes 7 % 0-12 Automated blood eosinophils/100 leukocytes 2 % 0-10 Automated blood basophils/100 leukocytes 0 % 0-10 Blood neutrophils automated count (number/volume) 5.2 10*3 1.8-7.8 Blood lymphocytes automated count (number/volume) 2.3 10*3 1.0-4.0 Blood monocytes automated count (number/volume) 0. 6 10*3 0.0-1.0 Automated eosinophil count 0.2 10*3/uL 0 .0-0.3 Automated blood basophil count (count/volume) 0.0 10*3/uL 0.0-0.1 Serum or plasma choriogonadotropin measu rement (units/volume) - 05/29/19 16:32 Serum or plasma choriogonadotropin measurement (units/ volume) 95036 m[iU]/mL <5 Bacteria identification in genital speci men by aerobe culture - 05/29/19 18:07 FREE TEXT EXTERNAL SUSCEPTIBILITY REPORTED 06/01 1 2:30 NRG QUANTITY OF GROWTH Moderate Growth NRG Bacteria identification in genital specimen by aerobe culture [id number] NRG Dirithromycin susceptibility test by dis k diffusion - 05/29/19 18:07 Gentamicin susceptibility test by minimum inhibitory c oncentration <= NRG Trimethoprim/sulfamethoxazole susceptibi lity test by minimum inhibitoryconcentration <= NRG Levofloxacin susceptibility test by minimum inhibitory concentration <= NRG Ampicillin susceptibility test by minimum inhibitory c oncentration <= NRG Cefazolin susceptibility test by minimum inhibitory co ncentration <= NRG Ceftriaxone susceptibility test by minimum inhibitory concentration <= NRG Piperacillin/tazobactam susceptibility t est by minimum inhibitory concentration <= NRG Ciprofloxacin susceptibility test by minimum inhibitor y concentration <= NRG Meropenem susceptibility test by minimum inhibitory co ncentration <= NRG Amoxicillin and clavulanate potassium susc HANNAH <= NRG Imipenem susceptibility test by minimum inhibitory con centration <= NRG Chlamydia trachomatis DNA detection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
[2019-11-25] MEDS ORDERED: MINERAL OIL CONCENTRATE 99.9% 15 ML UDC TOP PRN (12:45)
[2019-11-25] MEDS ORDERED: MISOPROSTOL 100 MCG (CYTOTEC) TAB PO NR (12:45)
[2019-11-25] MEDS ORDERED: TERBUTALINE INJ 1 MG/ML (BRETHINE) AMP SC PRN (12:45)
[2019-11-25] MEDS ORDERED: LIDOCAINE 1% INJ 20 ML 20 ML VIAL INJ PRN (12:45)
--- NOTE | 2019-11-25 13:00 | NUR ---
patellar reflexes 0 bilat.
[2019-11-25] MEDS: CATHETER FLUSH 10 ML SYR IV SCH (14:00)
[2019-11-25 14:18] LABS: BASOPHILS % (AUTO) 0 % (0-10); EOSINOPHILS # (AUTO) 0.1 10^3/uL (0.0-0.3); EOSINOPHILS % (AUTO) 1 % (0-10); HEMATOCRIT 41 % (35-52); HEMOGLOBIN 13.8 G/DL (11.5-16.0); LYMPHOCYTES # (AUTO) 2.4 X 10^3 (1.0-4.0); LYMPHOCYTES % (AUTO) 21 % (12-44); MEAN CORPUSCULAR HEMOGLOBIN 28 PG (25-34); MEAN CORPUSCULAR HGB CONC 34 G/DL (32-36); MEAN CORPUSCULAR VOLUME 84 FL (80-99); MEAN PLATELET VOLUME 12.1 FL (7.4-10.4); MONOCYTES # (AUTO) 0.7 X 10^3 (0.0-1.0); MONOCYTES % (AUTO) 6 % (0-12); NEUTROPHILS # (AUTO) 8.3 X 10^3 (1.8-7.8); NEUTROPHILS % (AUTO) 72 % (42-75); PLATELET COUNT 190 10^3/uL (130-400); RED CELL DISTRIBUTION WIDTH 15.2 % (10.0-14.5); WHITE BLOOD COUNT 11.5 10^3/uL (4.3-11.0)
[2019-11-25 14:46] LABS: ALANINE AMINOTRANSFERASE 14 U/L (0-55); ALBUMIN 3.3 GM/DL (3.2-4.5); ALKALINE PHOSPHATASE 95 U/L (40-136); BILIRUBIN,TOTAL 0.2 MG/DL (0.1-1.0); BUN/CREATININE RATIO 11; CALCIUM 8.9 MG/DL (8.5-10.1); CARBON DIOXIDE 19 MMOL/L (21-32); CHLORIDE 103 MMOL/L (98-107); CREATININE SERUM 0.79 MG/DL (0.60-1.30); GFR ESTIMATED > 60; GLUCOSE 67 MG/DL (70-105); POTASSIUM 4.2 MMOL/L (3.6-5.0); SODIUM 134 MMOL/L (135-145); TOTAL PROTEIN 6.5 GM/DL (6.4-8.2)
[2019-11-25] MEDS: D5 LR IV SOLUTION 1,000 ML IV SCH ×2 (14:50→23:31)
[2019-11-25] MEDS: MUPIROCIN 2% OINT 22 GM (BACTROBAN) TUBE NSEACH SCH ×2 (14:54→22:12)
--- NOTE | 2019-11-25 14:57 | Anesthesia-Procedure Note ---
Procedures/Interventions Procedure Start/Stop/Diagnosis Date of Procedure: Nov 25, 2019 Start Time: 14:45 Stop Time: 14:50 Central Line/IV Access IV : Location: Right Site: Antecubital IV Catheter Type: Peripheral IV IV Catheter Gauge: 20 NITISH HARRIS CRNA Nov 25, 2019 14:56
[2019-11-25] MEDS ORDERED: OXYTOCIN PRE-MIX DRIP 500 ML IV SCH ×2 (15:31→23:23)
--- NOTE | 2019-11-25 15:36 | OB Labor & Delivery Record ---
Vag Delivery Note Vag Delivery Note Date of Delivery: 11/25/19 Preoperative Diagnosis: Zulma Bridges is a 34 /Para 3 /1 ,Gestational Age 39 1/7 weeks Postoperative Diagnosis: Same Surgeon: FERMÍN SALDANA Anesthesia: epidural Delivery Type: vaginal Findings: Viable male infant, apgars 8/9, weight 6#10 ounces Lacerations: 1st degree laceration; not repaired Intact placenta with 3 vessel cord. No nuchal cord, body cord or shoulder dystocia Cytotec 800 mcg placed for hemorrhage prophylaxis Estimated Blood Loss: 400 ml Complications: None Condition: Stable Description of Procedure: The patient is a 34 year old female who presented for induction of labor. She was admitted and informed consent was obtained. Her labor course was remarkable for pitocin/epidural and AROM. She progressed to complete dilatation and began to push. She was then set up for delivery. The infant's head was delivered atraumatically in the LUTHER position. The shoulders and remainder of the infant's body were then delivered without difficulty. Upon delivery, the head was held below the level of the perineum and the mouth and nares were bulb suctioned. The cord was doubly clamped and cut and the was handed off to the pediatric staff. An intact placenta with 3-vessel cord delivered via Jud and there was found to be minimal bleeding.~ Vigorous fundal massage was performed and the fundus was found to be firm. IV oxytocin was given. Examination of the vagina and perineum revealed a 1st degree laceration not repaired. Following the repair, sponge, instrument and needle counts were correct. Mom and baby were both in stable condition in the labor suite. Vitals - Labs Labs Laboratory Tests 11/25/19 14:00: White Blood Count 11.5H, Red Blood Count 4.88, Hemoglobin 13.8, Hematocrit 41, Mean Corpuscular Volume 84, Mean Corpuscular Hemoglobin 28, Mean Corpuscular Hemoglobin Concent 34, Red Cell Distribution Width 15.2H, Platelet Count 190, Mean Platelet Volume 12.1H, Neutrophils (%) (Auto) 72, Lymphocytes (%) (Auto) 21, Monocytes (%) (Auto) 6, Eosinophils (%) (Auto) 1, Basophils (%) (Auto) 0, Neutrophils # (Auto) 8.3H, Lymphocytes # (Auto) 2.4, Monocytes # (Auto) 0.7, Eosinophils # (Auto) 0.1, Basophils # (Auto) 0.0, Sodium Level 134L, Potassium Level 4.2, Chloride Level 103, Carbon Dioxide Level 19L, Anion Gap 12, Blood Urea Nitrogen 9, Creatinine 0.79, Estimat Glomerular Filtration Rate > 60, BUN/Creatinine Ratio 11, Glucose Level 67L, Calcium Level 8.9, Corrected Calcium 9.5, Total Bilirubin 0.2, Aspartate Amino Transf (AST/SGOT) 22, Alanine Aminotransferase (ALT/SGPT) 14, Alkaline Phosphatase 95, Total Protein 6.5, Albumin 3.3 FERMÍN SALDANA DO Nov 25, 2019 15:36
[2019-11-25] MEDS ORDERED: DIBUCAINE (NUPERCAINAL) 1% OINT 30 GM TOP PRN (15:45)
[2019-11-25] MEDS ORDERED: PROMETHAZINE INJ 25 MG/ML (PHENERGAN) AMP IVP PRN (15:45)
[2019-11-25] MEDS ORDERED: BENZOCAINE/MENTHOL (DERMOPLAST) 60 ML CAN TP PRN (15:45)
[2019-11-25] MEDS ORDERED: MEASLES,MUMPS,RUBELLA 1 EA INJ SQ ONE (15:45)
[2019-11-25] MEDS ORDERED: TETANUS,DIPTH,PERTUSS P/F (BOOSTRIX) 0.5 ML VIAL IM ONE (15:45)
[2019-11-25] MEDS ORDERED: WITCH HAZEL(TUCKS) 40 EA JAR TOP PRN (15:45)
[2019-11-25] MEDS ORDERED: IBUPROFEN 600 MG (MOTRIN) TAB PO SCH (16:00)
[2019-11-25] MEDS ORDERED: MISOPROSTOL 100 MCG (CYTOTEC) TAB PO SCH (16:45)
[2019-11-25] MEDS ORDERED: AMPICILLIN FOR IV USE 1,000 MG in WATER (STERILE) FOR INJECTION 7.4 ML IV SCH (16:45)
--- NOTE | 2019-11-25 17:20 | NUR ---
LR Bolus 1000cc.
[2019-11-25] MEDS ORDERED: LACTATED RINGERS 1,000 ML IV SCH (18:00)
[2019-11-25] MEDS ORDERED: BUTORPHANOL INJ 2 MG/ML (STADOL) VIAL IV ONE (18:00)
[2019-11-25] MEDS: MISOPROSTOL 100 MCG (CYTOTEC) TAB PO SCH (20:00)
[2019-11-25] MEDS: AMPICILLIN FOR IV USE 1,000 MG in WATER (STERILE) FOR INJECTION 7.4 ML IV SCH (20:00)
[2019-11-25] MEDS ORDERED: fentaNYL 2 mcg/ml BUPIVA 0.125 100 ML ONE (20:45)
[2019-11-25] MEDS ORDERED: fentaNYL INJECTION 100 MCG/2 ML AMP ONE (20:52)
[2019-11-25] MEDS ORDERED: MUPIROCIN 2% OINT 22 GM (BACTROBAN) TUBE NSEACH SCH (21:00)
[2019-11-25] MEDS ORDERED: DOCUSATE SODIUM 100 MG (COLACE) CAP PO SCH (21:00)
[2019-11-25] MEDS ORDERED: BUPIVACAINE 0.25% 30 ML (SENSORCAINE) VIAL ONE (21:54)
[2019-11-25] MEDS ORDERED: LIDOCAINE PF 2% 5 ML (XYLOCAINE) VIAL ONE (21:54)
[2019-11-25] MEDS ORDERED: LACTATED RINGERS 1,000 ML IV ONE ×2 (21:55)
[2019-11-25] MEDS ORDERED: ONDANSETRON 4 MG/2 ML (SDV) Z0FRAN IV PRN (22:00)
[2019-11-25] MEDS ORDERED: ACETAMINOPHEN 500 MG TAB (TYLENOL) PO SCH (22:00)
[2019-11-25] MEDS ORDERED: EPIDURAL (fentaNYL 2 MCG/ML BUPIVA 0.125%)100 ML BAG EPI PRN (22:00)
[2019-11-25] MEDS ORDERED: NALOXONE 0.4 MG/ML 1 ML (NARCAN) VIAL IV PRN (22:00)
[2019-11-25] MEDS ORDERED: CATHETER FLUSH 10 ML SYR IV SCH (22:00)
[2019-11-26] VITALS (36 sets, daily range): BP systolic 120–187; BP diastolic 57–100
[2019-11-26] MEDS: AMPICILLIN FOR IV USE 1,000 MG in WATER (STERILE) FOR INJECTION 7.4 ML IV SCH ×2 (00:04→04:10)
[2019-11-26] MEDS ORDERED: METOCLOPRAMIDE INJ 10 MG/2 ML (REGLAN) ONE (01:22)
[2019-11-26] MEDS ORDERED: CITRIC ACID/SOB CIT (BICITRA) 30 ML UDC ONE (01:22)
[2019-11-26] MEDS ORDERED: FAMOTIDINE 20MG/2ML IV (PEPCID) ONE (01:22)
[2019-11-26] MEDS ORDERED: LACTATED RINGERS 1,000 ML IV ONE (01:24)
[2019-11-26] MEDS ORDERED: ACETAMINOPHEN 500 MG TAB (TYLENOL) ONE (03:06)
[2019-11-26] MEDS ORDERED: ACETAMINOPHEN 500 MG TAB (TYLENOL) PO ONE (04:00)
[2019-11-26] MEDS ORDERED: ceFAZolin 2 GM IV Premixed 50 ML ONE (04:35)
[2019-11-26] MEDS ORDERED: AZITHROMYCIN 500 MG (ZITHROMAX) VIAL ONE (04:51)
[2019-11-26] MEDS ORDERED: fentaNYL INJECTION 100 MCG/2 ML AMP ONE (04:56)
--- NOTE | 2019-11-26 04:58 | Progress Note ---
Standard Progress Note Progress Notes/Assess & Plan Date Seen by a Provider: Nov 26, 2019 Time Seen by a Provider: 04:35 Progress/Assessment & Plan Patient admitted for induction of labor at 36 1/7 weeks due to non reactive testing, gestational hypertension/preeclampsia. She was admitted at 1230 and had a very difficult start. There were several attempts at an IV start before anesthesia was able to be started. Then she wanted to leave because she was very upset, in pain and had not eaten. Blood pressures were elevated and baby was non reactive. She opted to stay so ampicillin was started and misoprostol x 1 was started for cervical ripening. A second dose of misoprostol was not given due to occasional decelerations. We did let the hearttones recover and then started Pitocin as no cervical change had been made. AROM was not accomplished at that time due to baby position (high). But then she had several late decelerations so Pitocin was stopped. The heart rate improved. She then would have occasional positional decelerations. I performed AROM with large amounts of clear fluid. The exam at that time was 4-5 cm/60/-2. She continued to have contractions and made cervical change, so Pitocin was not restarted. However, she began having late decelerations again, despite position changed, no augmentation, etc. At 0435, there were 2 deep decelerations and cervix was unchanged. status improved, but decision is now made to proceed with section. she has had several doses of ampicillin due to unknown GBS status. Consents have been signed. Risks of infection, injury to bowel, bladder ureter, bleeding, injury to the baby, blood clots, complications associated with anesthesia have been discussed with the patient and her sister and they understand. Will use prophylactic antibiotics (vanc/due to recent staph infection treated; and azithromycin due to ROM). And Prophylactic SCDs. all questions have been answered and OR team has been called. FERMÍN SALDANA DO Nov 26, 2019 04:57
[2019-11-26] MEDS ORDERED: MEASLES,MUMPS,RUBELLA 1 EA INJ SC SCH (05:00)
[2019-11-26] MEDS ORDERED: morphine INJ 4 MG/ML 1 ML (VIAL/SYRINGE) IVP PRN (05:00)
[2019-11-26] MEDS ORDERED: TETANUS,DIPTH,PERTUSS P/F (BOOSTRIX) 0.5 ML VIAL IM SCH (05:00)
[2019-11-26] MEDS ORDERED: METOCLOPRAMIDE INJ 10 MG/2 ML (REGLAN) IV ONE ×2 (05:00)
[2019-11-26] MEDS ORDERED: VANCOMYCIN INJECTION 1,000 MG in NS (IVPB) 250 ML IV SCH (05:00)
[2019-11-26] MEDS ORDERED: AZITHROMYCIN INJECTION 500 MG in NS (IVPB) 250 ML IV ONE (05:00)
[2019-11-26] MEDS ORDERED: FAMOTIDINE 20MG/2ML IV (PEPCID) IV ONE ×2 (05:00)
[2019-11-26] MEDS ORDERED: CITRIC ACID/SOB CIT (BICITRA) 30 ML UDC PO ONE ×2 (05:00)
[2019-11-26] MEDS ORDERED: ONDANSETRON 4 MG/2 ML (SDV) Z0FRAN IVP PRN (05:00)
[2019-11-26] MEDS ORDERED: VANCOMYCIN 1000 MG/VIAL ONE (05:02)
[2019-11-26] MEDS ORDERED: NS (IVPB) 500 ML ONE (05:02)
--- NOTE | 2019-11-26 05:06 | Cesarean Section Operative ---
Procedure Procedure Note Pre-operative Diagnosis: Zulma Bridges is a 34 /Para 2 /1 ,Gestational Age 36 2/7 weeks, non reassuring status, remote from delivery; arrest of dilation, gestational hypertension/preeclampsia; history of MRSA vulvar abscess; GBS unknown Post-operative Diagnosis: same Procedure: [ primary low transverse section Physician: FERMÍN SALDANA Special Education Science Teacher: [] Estimated blood loss: 400 mL Disposition: stable Findings: Viable male , Apgars pending, weight pending, intact placenta, 3vc, normal appearing uterus, tubes, and ovaries. Baby to nursery for respiratory difficulty Indications:Zulma Bridges is a 34 /Para 2 /1 ,Gestational Age 36 2/7 weeks, non reassuring status, remote from delivery; arrest of dilation, gestational hypertension/preeclampsia; history of MRSA vulvar abscess; GBS unknown - presenting for primary section due to non reassuring status. Procedure Details: The patient was seen in pre-op and the procedure was discussed with the patient in full, including the risks, benefits, and alternatives. All questions were answered. The patient was taken to the operating room and a time out was performed, verifying patient and procedure. After spinal anesthesia was placed by our anesthesia colleagues, the patient was placed in the dorsal supine with leftward tilt for uterine displacement.~ Her abdomen was then prepped and draped in the typical sterile fashion. A Pfannenstiel skin incision was made using a scalpel and carried down through the underlying fascia. The fascia was incised in the midline and tented up using Francia clamps. On both the inferior and superior fascia side the rectus muscle was dissected off bluntly and sharply using Martino scissors. The peritoneum was identified and entered bluntly in the midline. This was then stretched laterally using manual strength. After entering the abdominal cavity and confirming lack of intraperitoneal adhesions, a large Alfredo retractor was placed and the lower uterine segment was visualized. A bladder flap was created with the use of Metzenbaum scissors.~ A scalpel was utilized to make a low transverse uterine incision. Amniotomy was performed with an Allis clamp with return of clear fluid. The 's head was grasped and brought to the level of the incision. Fundal pressure was applied and infant was delivered without difficulty. Mouth and nares were suctioned with bulb suction. After the umbilical cord was clamped and cut, the infant was handed off to the pediatric staff. A sample of cord blood was then obtained. The placenta was delivered intact via uterine massage. The uterus was exteriorized and cleared of all clots and debris. The uterine incision was closed using 0 Vicryl in a running locked fashion. A second imbricated layer was placed using 0 Vicryl in a running fashion as well. The uterus was flexed forward and the posterior rectouterine space was inspected and cleared of all clots and debris. Again the hysterotomy site was examined and hemostasis was observed. The bilateral tubes and ovaries appeared normal. The uterus was placed back into the abdominal cavity and abdominal gutters were cleared of all clots and debris. A final check of the uterine incision showed it to be hemostatic. The peritoneum was closed using 3-0 Vicryl in a running fashion. The fascia was closed with 0 Vicryl in a running fashion. The subcutaneous space was hemost atic, and irrigated. The subcutaneous space was closed with 3-0 Vicryl in several single interrupted stitches. The skin was then closed using 4-0 Monocryl in a running subcuticular fashion. The skin edges were reapproximated together and were hemostatic. A pressure dressing was applied. All sponge, lap and needle counts were correct at the end of the procedure per nursing. Vitals - Labs Vital Signs - I&O Vital Signs Date Time Temp Pulse Resp B/P (MAP) Pulse Ox O2 Delivery O2 Flow Rate FiO2 11/26/19 04:05 66 18 127/69 (88) Room Air 11/26/19 04:00 66 18 120/70 (87) Room Air 11/26/19 03:55 65 18 151/69 (96) Room Air 11/26/19 03:50 63 18 145/67 (93) Room Air 11/26/19 03:43 64 18 144/82 (102) Room Air 11/26/19 03:38 65 18 145/71 (95) Room Air 11/26/19 03:25 63 18 168/79 (108) Room Air 11/26/19 03:10 35.8 64 18 178/77 (110) Room Air 11/26/19 02:55 63 18 151/57 (88) Room Air 11/26/19 02:40 58 18 160/70 (100) Room Air 11/26/19 02:30 62 18 171/71 (104) Room Air 11/26/19 02:10 74 18 149/97 (114) Room Air 11/26/19 01:55 63 18 145/74 (97) Room Air 11/26/19 01:45 60 18 149/80 (103) Room Air 11/26/19 01:25 65 18 140/72 (94) Room Air 11/26/19 01:10 65 18 149/78 (101) Room Air 11/26/19 00:55 64 18 141/75 (97) Room Air 11/26/19 00:40 60 18 148/79 (102) Room Air 11/26/19 00:25 64 18 138/79 (98) Room Air 11/26/19 00:15 62 18 139/72 (94) Room Air 11/25/19 23:57 62 18 151/88 (109) Room Air 11/25/19 23:40 62 18 161/88 (112) Room Air 11/25/19 23:25 67 18 163/78 (106) Room Air 11/25/19 23:10 63 18 146/72 (96) Room Air 11/25/19 22:55 34.8 72 18 151/78 (102) Room Air 11/25/19 22:40 70 18 140/79 (99) Room Air 11/25/19 22:25 64 18 147/77 (100) Room Air 11/25/19 22:10 75 18 139/77 (97) 100 Room Air 11/25/19 22:05 66 18 144/79 (100) 100 Room Air 11/25/19 22:00 72 18 140/83 (102) 100 Room Air 11/25/19 21:55 80 18 156/81 (106) 99 Room Air 11/25/19 21:50 73 18 153/86 (108) 99 Room Air 11/25/19 21:45 71 18 143/87 (105) 99 Room Air 11/25/19 21:40 76 18 156/83 (107) 99 Room Air 11/25/19 21:35 77 18 157/87 (110) 99 Room Air 11/25/19 21:30 36.3 71 18 151/87 (108) 99 Room Air 11/25/19 21:26 75 18 164/79 (107) 100 Room Air 11/25/19 21:24 78 18 170/97 (121) 100 Room Air 11/25/19 21:15 71 18 179/92 (121) 100 Room Air 11/25/19 21:10 76 18 166/84 (111) 100 Room Air 11/25/19 21:00 63 18 171/88 (115) Room Air 11/25/19 20:45 65 18 165/86 (112) Room Air 11/25/19 20:30 66 18 160/84 (109) Room Air 11/25/19 20:15 66 18 164/90 (114) Room Air 11/25/19 20:00 68 18 170/93 (118) Room Air 11/25/19 19:48 35.5 68 18 185/89 (121) Room Air 11/25/19 16:00 36.3 83 18 156/88 (110) 99 Room Air 11/25/19 13:05 36.7 81 18 98 Room Air 11/25/19 13:00 36.7 82 18 138/82 (100) 98 Room Air 11/25/19 13:00 Room Air I & O 11/26/19 07:00 Intake Total 3014.8 ml Balance 3014.8 ml Labs Laboratory Tests 11/25/19 14:00: White Blood Count 11.5H, Red Blood Count 4.88, Hemoglobin 13.8, Hematocrit 41, Mean Corpuscular Volume 84, Mean Corpuscular Hemoglobin 28, Mean Corpuscular Hemoglobin Concent 34, Red Cell Distribution Width 15.2H, Platelet Count 190, Mean Platelet Volume 12.1H, Neutrophils (%) (Auto) 72, Lymphocytes (%) (Auto) 21, Monocytes (%) (Auto) 6, Eosinophils (%) (Auto) 1, Basophils (%) (Auto) 0, Neutrophils # (Auto) 8.3H, Lymphocytes # (Auto) 2.4, Monocytes # (Auto) 0.7, Eosinophils # (Auto) 0.1, Basophils # (Auto) 0.0, Sodium Level 134L, Potassium Level 4.2, Chloride Level 103, Carbon Dioxide Level 19L, Anion Gap 12, Blood Urea Nitrogen 9, Creatinine 0.79, Estimat Glomerular Filtration Rate > 60, BUN/Creatinine Ratio 11, Glucose Level 67L, Calcium Level 8.9, Corrected Calcium 9.5, Total Bilirubin 0.2, Aspartate Amino Transf (AST/SGOT) 22, Alanine Aminotransferase (ALT/SGPT) 14, Alkaline Phosphatase 95, Total Protein 6.5, Albumin 3.3 FERMÍN SALDANA DO Nov 26, 2019 05:06
[2019-11-26] MEDS ORDERED: LIDOCAINE PF 2% 5 ML (XYLOCAINE) VIAL ONE ×2 (05:33)
[2019-11-26] MEDS ORDERED: BUPIVACAINE 0.5% 30 ML (SENSORCAINE) VIAL ONE (05:33)
[2019-11-26] MEDS ORDERED: KETOROLAC 30 MG/ML VIAL ONE (05:45)
[2019-11-26] MEDS: KETOROLAC 30 MG/ML VIAL IV SCH ×3 (05:51→19:54)
[2019-11-26] MEDS ORDERED: OXYTOCIN PRE-MIX DRIP 1,000 ML IV ONE (05:55)
[2019-11-26] MEDS ORDERED: CATHETER FLUSH 10 ML SYR IV SCH (06:00)
[2019-11-26] MEDS ORDERED: PRENATAL VITAMIN 1 EA TAB PO SCH (07:00)
[2019-11-26] MEDS: ENOXAPARIN 40 MG/0.4 ML (LOVENOX) SYR SQ SCH ×2 (07:54→19:53)
[2019-11-26] MEDS: DOCUSATE SODIUM 100 MG (COLACE) CAP PO SCH ×2 (07:56→21:01)
[2019-11-26] MEDS: MUPIROCIN 2% OINT 22 GM (BACTROBAN) TUBE NSEACH SCH ×2 (07:58→21:09)
[2019-11-26] MEDS ORDERED: FERROUS SULF 325 MG (IRON) TAB PO SCH (08:00)
--- NOTE | 2019-11-26 08:20 | NUR ---
PT IN BED. MEDS GIVEN; SEE EMAR FOR FURTHER. SALTINE CRACKERS PLACED AT BEDSIDE. INITIAL SHIFT ASSESSMENT COMPLETED; SEE INTERVENTION FOR FURTHER. VS OBTAINED. IV TUBING CONVERTED TO PUMP TUBING. SCDS ON CALVES BILATERALLY. ICE PACK APPLIED OVER INCISION SITE. LINENS PROVIDED FOR VISITOR. CALL LIGHT WITHIN REACH.
[2019-11-26] MEDS: OXYTOCIN PRE-MIX DRIP 500 ML IV SCH (08:35)
--- NOTE | 2019-11-26 08:35 | NUR ---
PITOCIN INFUSING @ 125 ML/HR/PUMP. PT DOZING, NO NEEDS VOICED.
[2019-11-26] MEDS ORDERED: LABETALOL 200 MG (NORMODYNE) TAB PO SCH (09:00)
--- NOTE | 2019-11-26 10:32 | NUR ---
PT VOICES THAT HER PAIN IS COMING BACK, RATING 7/10. ANOTHER OXYIR PROVIDED; SEE EMAR FOR FURTHER. FRESH ICE PACK APPLIED OVER INCISION. PT WOULD LIKE TO GO TO THE NURSERY TO SEE AFTER HER PAIN IS MORE MANAGEABLE. CALL LIGHT WITHIN REACH.
--- NOTE | 2019-11-26 11:09 | NUR ---
R/T NOTIFIED OF NEED TO INITIATE INCENTIVE SPIROMETRY.
--- NOTE | 2019-11-26 11:51 | NUR ---
PT ASSISTED TO W/C AND THEN TRANSFERRED INTO THE NURSERY TO SEE INFANT.
[2019-11-26] MEDS: ACETAMINOPHEN 500 MG TAB (TYLENOL) PO SCH ×2 (13:19→21:02)
[2019-11-26] MEDS ORDERED: LABETALOL 200 MG (NORMODYNE) TAB PO ONE (14:00)
[2019-11-26] MEDS: LABETALOL 200 MG (NORMODYNE) TAB PO SCH ×2 (14:00→21:01)
--- NOTE | 2019-11-26 15:55 | NUR ---
PT AMBULATES TO THE NURSERY WITH Fer GARRETT RN AND VISITOR.
--- NOTE | 2019-11-26 16:40 | NUR ---
PT BACK TO ROOM. NO NEEDS VOICED.
--- NOTE | 2019-11-26 18:08 | Anesthesia-Regional Post-Op ---
Regional Patient Condition Mental Status: Alert, Oriented x3 Circulation: Same as Pre-Op Headache: Absent Sensation: Full Recovery Motor Block: Absent Post Op Complications Complications None Follow Up Care/Instructions Patient Instructions None needed. Anesthesia/Patient Condition Patient is doing well, no complaints, stable vital signs, no apparent adverse anesthesia problems. No complications reported per nursing. ANEL MCDANIELS CRNA Nov 26, 2019 18:08
[2019-11-26] MEDS: CATHETER FLUSH 10 ML SYR IV SCH (22:00)
[2019-11-27 00:30] VITALS: BP 144/79
[2019-11-27] MEDS: OXYTOCIN PRE-MIX DRIP 500 ML IV SCH (00:56)
[2019-11-27] MEDS: AMPICILLIN FOR IV USE 1,000 MG in WATER (STERILE) FOR INJECTION 7.4 ML IV SCH ×4 (00:57→04:15)
[2019-11-27] MEDS: D5 LR IV SOLUTION 1,000 ML IV SCH ×2 (00:57→01:00)
[2019-11-27] MEDS: MISOPROSTOL 100 MCG (CYTOTEC) TAB PO SCH ×4 (00:57→04:16)
--- NOTE | 2019-11-27 00:59 | NUR ---
PEPCID, REGLAN, AND BICITRA NON-ADMINISTERED ON -OCT. THESE MEDICATIONS WERE GIVEN BY ANESTHESIA PER PRE-OP PROTOCOL. SEE ANESTHESIA RECORD FOR MEDICATION DETAILS.
[2019-11-27] MEDS: CATHETER FLUSH 10 ML SYR IV SCH ×2 (01:02→01:03)
[2019-11-27] MEDS: KETOROLAC 30 MG/ML VIAL IV SCH (01:05)
[2019-11-27 04:17] VITALS: BP 144/63
[2019-11-27] MEDS ORDERED: MILK OF MAGNESIA 400 MG/5 ML 30 ML UDC PO PRN ×2 (05:00→13:00)
[2019-11-27] MEDS: IBUPROFEN 600 MG (MOTRIN) TAB PO SCH ×4 (05:50→20:22)
[2019-11-27] MEDS: ACETAMINOPHEN 500 MG TAB (TYLENOL) PO SCH ×3 (05:51→20:22)
[2019-11-27] MEDS: ENOXAPARIN 40 MG/0.4 ML (LOVENOX) SYR SQ SCH ×2 (05:51→20:23)
[2019-11-27 06:31] LABS: BASOPHILS % (AUTO) 0 % (0-10); EOSINOPHILS # (AUTO) 0.1 10^3/uL (0.0-0.3); EOSINOPHILS % (AUTO) 1 % (0-10); HEMATOCRIT 34 % (35-52); HEMOGLOBIN 11.1 G/DL (11.5-16.0); LYMPHOCYTES # (AUTO) 1.7 X 10^3 (1.0-4.0); LYMPHOCYTES % (AUTO) 25 % (12-44); MEAN CORPUSCULAR HEMOGLOBIN 28 PG (25-34); MEAN CORPUSCULAR HGB CONC 32 G/DL (32-36); MEAN CORPUSCULAR VOLUME 86 FL (80-99); MEAN PLATELET VOLUME 11.5 FL (7.4-10.4); MONOCYTES # (AUTO) 0.4 X 10^3 (0.0-1.0); MONOCYTES % (AUTO) 6 % (0-12); NEUTROPHILS # (AUTO) 4.7 X 10^3 (1.8-7.8); NEUTROPHILS % (AUTO) 68 % (42-75); PLATELET COUNT 127 10^3/uL (130-400); RED CELL DISTRIBUTION WIDTH 15.2 % (10.0-14.5); WHITE BLOOD COUNT 6.9 10^3/uL (4.3-11.0)
[2019-11-27] MEDS: DOCUSATE SODIUM 100 MG (COLACE) CAP PO SCH ×2 (09:15→20:22)
[2019-11-27] MEDS: LABETALOL 200 MG (NORMODYNE) TAB PO SCH ×3 (09:15→20:22)
[2019-11-27 10:16] VITALS: BP 114/60
[2019-11-27] MEDS: MUPIROCIN 2% OINT 22 GM (BACTROBAN) TUBE NSEACH SCH ×2 (13:00→20:26)
[2019-11-27] MEDS ORDERED: PROMETHAZINE 25 MG (PHENERGAN) TAB PO PRN (13:00)
[2019-11-27] MEDS ORDERED: PANTOPRAZOLE 40 MG (PROTONIX) TAB PO ONE (13:00)
--- NOTE | 2019-11-27 13:01 | Postpartum Progress Note ---
Post Op Post-operative Day #1 s/p PLTCS BP elevated to severe range yesterday afternoon. Additional dose of labetalol given and blood pressure improved. 200 mg po tid started today. BP this am normal She is complaining of increased pain despite pain medication. Initiated TAG protocol. Will see if this helps. She is taking ibuprofen/tylenol and oxycodone. Subjective: Patient is without complaints. Ambulating, voiding after tomlinson removed. Jessika ating a regular diet without nausea or vomiting. Normal lochia. Pain is well controlled with oral pain medications. Passing flatus. bottle feeding. [] Objective: 11/27/19 11/27/19 04:17 10:16 Temp 36.5 36.6 Pulse 83 94 Resp 16 17 B/P (MAP) 144/63 (90) 114/60 (78) Pulse Ox 97 96 O2 Delivery Room Air Room Air 11/27/19 00:00 Intake Total 1400 ml Output Total 700 ml Balance 700 ml Laboratory Tests Test 11/27/19 06:25 Range/Units White Blood Count 6.9 4.3-11.0 10^3/uL Red Blood Count 3.99 L 4.35-5.85 10^6/uL Hemoglobin 11.1 L 11.5-16.0 G/DL Hematocrit 34 L 35-52 % Mean Corpuscular Volume 86 80-99 FL Mean Corpuscular Hemoglobin 28 25-34 PG Mean Corpuscular Hemoglobin Concent 32 32-36 G/DL Red Cell Distribution Width 15.2 H 10.0-14.5 % Platelet Count 127 L 130-400 10^3/uL Mean Platelet Volume 11.5 H 7.4-10.4 FL Neutrophils (%) (Auto) 68 42-75 % Lymphocytes (%) (Auto) 25 12-44 % Monocytes (%) (Auto) 6 0-12 % Eosinophils (%) (Auto) 1 0-10 % Basophils (%) (Auto) 0 0-10 % Neutrophils # (Auto) 4.7 1.8-7.8 X 10^3 Lymphocytes # (Auto) 1.7 1.0-4.0 X 10^3 Monocytes # (Auto) 0.4 0.0-1.0 X 10^3 Eosinophils # (Auto) 0.1 0.0-0.3 10^3/uL Basophils # (Auto) 0.0 0.0-0.1 10^3/uL Physical Exam: General - Alert and oriented, no apparent distress Abdomen - Soft, appropriately tender to palpation, non-distended, fundus firm at umbilicus Incision - clean, dry and intact; no erythema or induration, no drainage Extremities - no edema, negative Teresita's bilaterally [] Assessment: [] post-operative day # [], status post []. Recovering well, hemodynamically stable Acute blood loss anemia [] Plan: Routine post-operative care. Encourage breast feeding. Encourage ambulation. VTE prophylaxis: SCDs. Ferrous sulfate supplementation. Plan for discharge tomorrow or Thursday Vitals - Labs Vital Signs - I&O Vital Signs Date Time Temp Pulse Resp B/P (MAP) Pulse Ox O2 Delivery O2 Flow Rate FiO2 11/27/19 10:16 36.6 94 17 114/60 (78) 96 Room Air 11/27/19 04:17 36.5 83 16 144/63 (90) 97 Room Air 11/27/19 00:30 36.4 76 18 144/79 (100) 98 Room Air 11/26/19 19:45 36.3 78 20 148/83 (104) 99 Room Air 11/26/19 15:06 36.6 74 18 156/88 (110) 97 Room Air 11/26/19 14:00 79 18 174/92 (119) Room Air 11/26/19 13:25 37.1 78 18 176/100 (125) 96 Room Air I & O 11/27/19 07:00 Intake Total 2570 ml Output Total 1740 ml Balance 830 ml Labs Laboratory Tests 11/27/19 06:25: White Blood Count 6.9, Red Blood Count 3.99L, Hemoglobin 11.1L, Hematocrit 34L, Mean Corpuscular Volume 86, Mean Corpuscular Hemoglobin 28, Mean Corpuscular Hemoglobin Concent 32, Red Cell Distribution Width 15.2H, Platelet Count 127L, Mean Platelet Volume 11.5H, Neutrophils (%) (Auto) 68, Lymphocytes (%) (Auto) 25, Monocytes (%) (Auto) 6, Eosinophils (%) (Auto) 1, Basophils (%) (Auto) 0, Neutrophils # (Auto) 4.7, Lymphocytes # (Auto) 1.7, Monocytes # (Auto) 0.4, Eosinophils # (Auto) 0.1, Basophils # (Auto) 0.0 FERMÍN SALDANA DO Nov 27, 2019 13:01
--- NOTE | 2019-11-27 13:15 | NUR ---
PT REPORTED PAIN AT 8, ONE HOUR AFTER SCHEDULED MOTRIN, PT REPORTED PAIN WAS WORSE AT AN 8. DR SALDANA PRESENT AT THIS TIME AND THIS NURSE REPORTED PTS INCREASED PAIN, DR SALDANA SAID THAT WHEN NEXT PRN DOSE IS DUE AT 1300 SHE CAN HAVE 10 MG OXY IR PER TAG IN [facility].
[2019-11-27] MEDS: SIMETHICONE 80 MG (MYLICON) CHEW PO SCH ×2 (13:31→20:23)
[2019-11-27 14:59] VITALS: BP 127/69
--- NOTE | 2019-11-27 18:39 | NUR ---
PT LAYING IN BED, FACE VERY RED, AND C/O CONTINUED PAIN. PT SAID SHE SHOULD OF LAID DOWN AFTER SHE TOOK HER PAIN MEDICATION EARLIER AT 1700. PER TAG ON [facility], 5 MG OF OXY IR WAS ADMINISTERED ALONG WITH ICE PACK. PT NOW LAYING IN BED. INFANT SON WENT TO NURSERY. HE DID TAKE 4 ML OF FORMULA AFTER NOT SUCCESSFULLY LATCHING ON TO NIPPLE.
[2019-11-27 20:23] VITALS: BP 143/70
[2019-11-28 02:00] VITALS: BP 105/56
[2019-11-28] MEDS: IBUPROFEN 600 MG (MOTRIN) TAB PO SCH ×4 (02:28→16:58)
[2019-11-28] MEDS: SIMETHICONE 80 MG (MYLICON) CHEW PO SCH ×3 (03:42→14:01)
[2019-11-28] MEDS: ACETAMINOPHEN 500 MG TAB (TYLENOL) PO SCH ×2 (07:09→16:57)
[2019-11-28 09:00] VITALS: BP 137/79
[2019-11-28] MEDS ORDERED: PANTOPRAZOLE 40 MG (PROTONIX) TAB PO SCH (09:00)
[2019-11-28] MEDS ORDERED: BISACODYL 5 MG (DULCOLAX) TABLET PO SCH (09:00)
[2019-11-28] MEDS: DOCUSATE SODIUM 100 MG (COLACE) CAP PO SCH ×2 (09:09→20:25)
[2019-11-28] MEDS: LABETALOL 200 MG (NORMODYNE) TAB PO SCH ×3 (09:10→20:25)
[2019-11-28] MEDS: ENOXAPARIN 40 MG/0.4 ML (LOVENOX) SYR SQ SCH ×2 (09:10→20:25)
[2019-11-28] MEDS: MUPIROCIN 2% OINT 22 GM (BACTROBAN) TUBE NSEACH SCH (09:13)
--- NOTE | 2019-11-28 10:08 | NUR ---
CM/SS visited with the patient to assess needs for discharge. The patient was in the room, baby (Juan Pablo) was not present at that time. The patient verbalized that she is doing well at this time. She is unsure of planned discharge date. She stated that she has all of the supplies needed at home for baby and reported that she does not need any assistance with anything. She currently is enrolled in [place] to assist her; unsure if she will breast feed or use formula. The patient reports that she has a good support system in place with family and significant other. The patient is also on Medicaid, [place]. The patient states that she does not live in [place]. The patient did not have any other needs or questions at this time.
--- NOTE | 2019-11-28 13:40 | Postpartum Progress Note ---
Post Op Post-operative Day #2 s/p PLTCS Subjective: Patient is without complaints. Ambulating, voiding after tomlinson removed. Tolerating a regular diet without nausea or vomiting. Normal lochia. Pain is well controlled with oral pain medications. Passing flatus. breast feeding/pumping. Objective: 11/28/19 11/28/19 02:00 09:07 Temp 36.4 36.9 Pulse 84 Resp 18 B/P (MAP) 105/56 (72) Pulse Ox 95 11/28/19 00:00 Intake Total 600 ml Output Total 1950 ml Balance -1350 ml Physical Exam: General - Alert and oriented, no apparent distress Abdomen - Soft, appropriately tender to palpation, non-distended, fundus firm at umbilicus Incision - clean, dry and intact; no erythema or induration, no drainage Extremities - 1+ edema, negative Teresita's bilaterally Assessment: 1. post-operative day # 2, status post PLTCS. Recovering well, hemodynamically stable 2. Plan: Routine post-operative care. Encourage breast feeding. Encourage ambulation. VTE prophylaxis: SCDs. Ferrous sulfate supplementation. Plan for discharge [] Vitals - Labs Vital Signs - I&O Vital Signs Date Time Temp Pulse Resp B/P (MAP) Pulse Ox O2 Delivery O2 Flow Rate FiO2 11/28/19 09:07 36.9 11/28/19 02:00 36.4 84 18 105/56 (72) 95 11/27/19 20:23 36.9 88 20 143/70 (94) 96 Room Air 11/27/19 14:59 36.5 84 20 127/69 (88) 95 Room Air I & O 11/28/19 07:00 Intake Total 1600 ml Output Total 3350 ml Balance -1750 ml FERMÍN SALDANA DO Nov 28, 2019 13:40
[2019-11-28 14:00] VITALS: BP 128/65
[2019-11-28] MEDS ORDERED: FUROSEMIDE 20 MG (LASIX) TAB PO NR (14:21)
[2019-11-28] MEDS ORDERED: OXYTOCIN PRE-MIX DRIP 500 ML IV ONE (18:44)
--- NOTE | 2019-11-28 18:54 | NUR ---
Dr Boogie notified per message of pt's being transferred. She will write for discharge - and will have script for narcotic at office in a.m. 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
[2019-11-28] MEDS ORDERED: SIME80TA16 PO (19:26)
[2019-11-28] MEDS ORDERED: OXYC5TAB96 PO (19:26)
[2019-11-28] MEDS ORDERED: DCS100C PO (19:26)
[2019-11-28] MEDS ORDERED: ACET-93 PO (19:26)
[2019-11-28] MEDS ORDERED: LABE200T7 PO (19:26)
[2019-11-28] MEDS ORDERED: IBUP-844 PO (19:26)
[2019-11-28] MEDS ORDERED: FURO20TA4 PO (19:29)
--- NOTE | 2019-11-28 19:29 | Short Stay Summary ---
Discharge Summary Hospital Course Was the Problem List Reviewed?: Yes Final Diagnosis: preeclampsia; non reassuring status, cs Hospital Course Date of Admission: Nov 25, 2019 at 12:20 Admission Diagnosis : Family Physician/Provider: Shawn Vázquez Date of Discharge: 11/28/19 Discharge Diagnosis: [ ] Hospital Course: [ ] Labs and Pending Lab Test: Home Meds Active Labetalol HCl 200 Mg Tablet 200 Mg PO TID Dok (Docusate Sodium) 100 Mg Capsule 100 Mg PO BID Simethicone 80 Mg Tab.chew 80 Mg PO PCHS Oxycodone IR (Oxycodone HCl) 5 Mg Tablet 10 Mg PO Q6H Acetaminophen 500 Mg Tablet 1,000 Mg PO Q8HR Ibu (Ibuprofen) 600 Mg Tablet 600 Mg PO Q6HR Labetalol HCl 200 Mg Tablet 200 Mg PO BID Complete Caplet (Pnv Cmb#21/Iron/Folic Acid) 1 Each Tablet 1 Each PO DAILY 30 Days Assessment/Pt Instructions follow up 1 week for incision check/BP with bhumika and in 6 weeks for post exam Discharge Instructions Discharge Diet: No Restrictions Activity as Tolerated: Yes Discharge Physical Examination General Appearance: Alert, Oriented X3 HEENT: Atraumatic Respiratory: Clear to Auscultation, Normal Air Movement Cardiovascular: Regular Rate, Normal S1, Normal S2 Abdominal: Normal Bowel Sounds Extremities: Other (3+ edema) Allergies: Coded Allergies: No Known Drug Allergies (Verified , 04/14/08) Discharge Summary Date of Admission Nov 25, 2019 at 12:20 Date of Discharge Clinical Quality Measures DVT/VTE Risk/Contraindication: Risk Factor Score Per Nursin RFS Level Per Nursing on Admit: 4+=Very High FERMÍN SALDANA DO Nov 28, 2019 19:29
[2019-11-28 20:30] VITALS: BP 136/99
--- NOTE | 2019-11-28 20:30 | NUR ---
Discharge plan discusses with patient. Pt wishing to still be discharged. Discharged instructions verbalized. 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 Pt will set up follow up appointment tomorrow. pt verbalized understanding. pt ambulated down to pvt car and dc'd home.
[2019-11-29] MEDS ORDERED: FUROSEMIDE 20 MG (LASIX) TAB PO SCH (09:00)
== END 2019-11-28 20:30 | disposition home or self-care (01) | DRG 786 ==
LOC: LDRP 12:20 → WS 15:06 → LDRP 15:06
PROVIDERS: ADMIT Obstetrics & Gynecology; ATTEND Obstetrics & Gynecology
PROC: 3E0DXGC Introduction of Other Therapeutic Substance into Mouth and Pharynx, External Approach (ICD-10-PCS; 2019-11-25)
PROC: 10D00Z1 Extraction of Products of Conception, Low, Open Approach (ICD-10-PCS; principal; 2019-11-26 05:21)
DX: O76 Abnormality in fetal heart rate and rhythm complicating labor and delivery (principal); O14.94 Unspecified pre-eclampsia, complicating childbirth; O60.14X0 Preterm labor third trimester with preterm delivery third trimester, not applicable or unspecified; O62.0 Primary inadequate contractions; O90.81 Anemia of the puerperium; D62 Acute posthemorrhagic anemia; Z37.0 Single live birth; Z3A.36 36 weeks gestation of pregnancy
CPT/HCPCS: 36415; 80053; 85025; 86850; 86900; 86901; 94664; 94760

== ENCOUNTER 2020-05-03 05:46 | Outpatient (CLI) | payer MEDICAID ==
[~2020-05-03] VITALS: Ht 167.7 cm; Wt 133.6 kg
[~2020-05-03 05:46] MED LIST changes: +ACET-93 PO; +DCS100C PO; +FURO20TA4 PO; +IBUP-844 PO; +OXYC5TAB96 PO; +SIME80TA16 PO
== END 2020-05-03 13:16 ==
LOC: PREOP 05:46
PROVIDERS: ATTEND Surgery
DX: Z01.818 Encounter for other preprocedural examination (principal)

== ENCOUNTER → 2020-05-15 | Outpatient (CLI) | payer MEDICAID ==
[~2020-05-15] MED LIST changes: +CETI10TA49 PO; +HYDR-4226 PO; +OXC5T PO; +OXYC1TAB87 PO; -OXYC5TAB96 PO; +SERT50TA2 PO
== END ==
LOC: LABNPT 06:09
PROVIDERS: ATTEND Surgery
DX: Z01.818 Encounter for other preprocedural examination (principal); Z01.812 Encounter for preprocedural laboratory examination; K42.9 Umbilical hernia without obstruction or gangrene; Z20.828 Contact with and (suspected) exposure to other viral communicable diseases
CPT/HCPCS: 87635

== ENCOUNTER 2020-05-16 08:35 | Day surgery (SDC) | payer MEDICAID ==
[~2020-05-16] VITALS: Ht 167.7 cm; Wt 133.6 kg
[2020-05-16] VITALS (12 sets, daily range): BP systolic 101–171; BP diastolic 56–113
[~2020-05-16 08:35] MED LIST changes: -CETI10TA49 PO; -HYDR-4226 PO; -OXYC1TAB87 PO; -SERT50TA2 PO
[2020-05-16] MEDS ORDERED: LACTATED RINGERS 1,000 ML IV PRN (08:46)
--- NOTE | 2020-05-16 08:51 | Progress Note-Pre Operative ---
Pre-Operative Progress Note H&P Reviewed The H&P was reviewed, patient examined and no changes noted. Time Seen by Provider: 08:50 Date H&P Reviewed: May 16, 2020 Time H&P Reviewed: 08:51 Pre-Operative Diagnosis: Incarcerated Incisional Hernia WILBERTO SUMMERS DO May 16, 2020 08:51
[2020-05-16] MEDS ORDERED: MIDAZOLAM 2 MG/2 ML (VERSED) VIAL ONE (08:52)
[2020-05-16] MEDS ORDERED: fentaNYL INJECTION 100 MCG/2 ML AMP ONE ×2 (08:52→10:17)
[2020-05-16] MEDS ORDERED: ONDANSETRON 4 MG/2 ML (SDV) Z0FRAN ONE ×2 (08:52→10:59)
[2020-05-16] MEDS ORDERED: LIDOCAINE PF 2% 5 ML (XYLOCAINE) VIAL ONE (08:52)
[2020-05-16] MEDS ORDERED: proPOfol 200 MG/20 ML (DIPRIVAN) VIAL IV ONE ×2 (08:52→10:04)
[2020-05-16] MEDS ORDERED: SEVOFLURANE (ULTANE) 15 ML INHAL SOLN ONE ×3 (08:52→10:05)
[2020-05-16] MEDS ORDERED: ROCURONIUM 10 MG/ML 5 ML SYRINGE IV ONE (08:52)
[2020-05-16] MEDS ORDERED: BUP/EPI 0.25% 1:200,000 (MARCAINE) 30 ML VIAL ONE (08:53)
[2020-05-16] MEDS ORDERED: ceFAZolin INJECTION 3,000 MG in NS (IVPB) 100 ML IV ONE (09:00)
[2020-05-16] MEDS ORDERED: CATHETER FLUSH 10 ML SYR IV PRN (09:15)
[2020-05-16] MEDS ORDERED: OXYC1TAB87 PO (09:33)
[2020-05-16] MEDS ORDERED: CETI10TA49 PO (09:33)
[2020-05-16] MEDS ORDERED: SERT50TA2 PO (09:33)
[2020-05-16] MEDS ORDERED: GLYCOPYRROLATE 0.2 MG/ML (ROBINUL) 2 ML VIAL ONE (09:56)
[2020-05-16] MEDS ORDERED: NEOSTIGMINE 3 MG/3 ML VIAL ONE (09:56)
--- NOTE | 2020-05-16 10:19 | Progress Note-Post Operative ---
Post-Operative Progess Note Surgeon (s)/Brush Maker (s) Surgeon WILBERTO SUMMERS DO Brush Maker: [facility] Pre-Operative Diagnosis Incarcerated Incisional Hernia Post-Operative Diagnosis SAME Procedure & Operative Findings Date of Procedure 05/16/20 Procedure Performed/Findings PROCEDURE: Laparoscopic [Incisional/Ventral] Incarcerated hernia repair with mesh. COMPLICATIONS: None. INDICATIONS: The patient is a 35, female with an Incisional/Ventral] Incarcerated hernia, which has continued to increase in size and cause discomfort. The patient was explained the risk and benefits of the procedure and wished to proceed with the procedure. Consent was signed on the chart. DESCRIPTION OF PROCEDURE: The patient was taken into the operating suite, prepped and draped in sterile fashion. Surgical pause was performed. Local anesthetic was infiltrated in left upper quadrant. A #11 blade scalpel was used to make a small skin incision. Cautery was used to dissect down to the fascia, which was then scored and divided the muscle, went through the posterior sheath and a balloon trocar was inserted into the abdomen. The abdomen was then insufflated. Incarcerated incisional hernia was seen. A 5 mm trocar was placed in the right lower quadrant and a 5 mm trocar was placed in left lower quadrant. The incarcerated fat was then taken down with bovie electrocautery and pictures were taken. Echo Ventralight mesh was then inserted in the abdomen (6 inch round) grabbed through the stab incision. The balloon was inflated on the mesh. Circumferential tacks were placed with two SecureStrap Tackers. The balloon was then removed and inner crown was created as well. The mesh was tacked with pressure being decreased to about 10mm Hg. The abdomen was then desufflated,the trocars were removed. The 12 mm fascial defect was then closed using 0 Vicryl. The skin was then closed using 4-0 Monocryl in a running subcuticular fashion. The abdomen was washed and dried and Skin Affix was placed over the incisions. The patient tolerated procedure well without any complications. She was taken to recovery room in stable condition. Dr. Molina assisted on this case helping to make incisions, close incisions, identify anatomy and hold anatomy out of the way. Anesthesia Type GET Estimated Blood Loss Estimated blood loss (mL): scant Specimens/Packing Specimens Removed none WILBERTO SUMMERS DO May 16, 2020 10:19
[2020-05-16] MEDS ORDERED: HYDR-4226 PO (10:20)
--- NOTE | 2020-05-16 10:22 | Discharge Inst-Surgical ---
Discharge Inst-Surgical Depart Medication/Instructions New, Converted or Re-Newed RX: RX Given to Pt/Family Patient Instructions Follow up Appt: Make appointment for 1 week. [phone] Instructions: No lifting greater than 20 pounds. No strenuous activity. May shower in 24 hours, no tub bath or soaking. Use incentive spirometer at home as directed. No Smoking Skin/Wound Care: May remove bandages in am. You need to leave the Dermabond on incision it will fall off on it's own. Symptoms to Report: Appetite Changes, Extremity Discoloration, Numbness/Tingling, Swelling Increased, Bleeding Excessive, Eyesight Changes, Pain Increased, Urine Color Change, Constipation(Persistent), Fever over 101 degree F, Pain/Pressure in chest, Urinating Difficulty, Cough Up/Vomit Blood, Heart Beat Irreg/Pounding, Pain/Pressure in jaw, Cramps in feet or legs, Lightheadedness, Pain/Pressure in shoulder, Diarrhea(Persistent), Memory Changes Suddenly, Questions/Concerns, Weight gain consecutive days, Dizziness/Fainting, Nausea/Vomiting, Shortness of Breath, Weight gain over 2 pounds If questions or concerns contact your physician Or seek help at emergency department. Activity Activity as Tolerated: Yes Activity Instructions: Avoid Stress to Incision Driving Instructions: No Driving/Refer to Dr. Hull Discharge Diet: No Restrictions Diet After 24 Hours: Clear Liquid if Nauseous If Any Problems/Questions/Issu: Contact Your Physician, Go to Emergency Room Skin/Wound Care Infection Signs and Symptoms: Increased Redness, Foul Odor of Wound, Increased Drainage, Skin Itchy or Has a Rash, Increased Swelling, Temperature Above 101 F Wound Care Comment: heating pad to shoulder or neck tonight for pain Bathing Instructions: Shower Stitches/Palmer/Dermabond Dis: Dermabond Ice Pack: Ice On and Off Site WILBERTO SUMMERS DO May 16, 2020 10:22
[2020-05-16] MEDS ORDERED: morphine INJ 10 MG/ML 1ML (SYR OR VIAL) ONE (10:59)
[2020-05-16] MEDS ORDERED: morphine INJ 10 MG/ML 1ML (SYR OR VIAL) IVP ONE (11:00)
[2020-05-16] MEDS: ONDANSETRON 4 MG/2 ML (SDV) Z0FRAN IVP PRN ×3 (11:07→12:11)
--- NOTE | 2020-05-16 11:30 | NUR ---
TO AMB SURG FROM PAR PER CART. ALERT, RATES ABDOMINAL PAIN 9. SKIN AFFIX INTACT TO X4 LAP ABD SURGICAL SITES WITH STERI STRIPS IN PLACE OVER UMBILICAL SITE. ICE PACK AT ABD. PO FLUIDS AND CRACKERS PROVIDED.
[2020-05-16] MEDS ORDERED: HYDROcodone/APAP 5 MG/325 MG (LORTAB) TAB ONE (11:47)
--- NOTE | 2020-05-16 11:56 | NUR ---
TAKING PO FLUIDS AND CRACKERS WITHOUT PROBLEM. LORTAB 5/325 MG, ONE TAB, GIVEN PO.
[2020-05-16] MEDS ORDERED: HYDROcodone/APAP 5 MG/325 MG (LORTAB) TAB PO ONE (12:00)
--- NOTE | 2020-05-16 12:40 | NUR ---
RESTING QUIETLY IN BED. CONTINUES TO RATE PAIN 7, BUT IS REQUESTING DISMISSAL. NO CHANGE IN SITE ASSESSMENT. HAS HAD ABDOMINAL BINDER IN PLACE ON ARRIVAL FROM [facility].
--- NOTE | 2020-05-16 13:00 | NUR ---
INCENTIVE SPIROMETRY USE INSTRUCTION GIVEN TO PT WITH RETURN DEMONSTRATION OF USE BY PT.
--- NOTE | 2020-05-16 13:13 | NUR ---
TRANSFERRED SELF FROM BED TO WC AND WC TO CAR WITH MINIMAL ASSIST.
--- NOTE | 2020-05-16 16:41 | Anesthesia-General Post-Op ---
General Patient Condition Mental Status/LOC: Same as Preop Cardiovascular: Satisfactory Nausea/Vomiting: Absent Respiratory: Satisfactory Pain: Controlled Complications: Absent Post Op Complications Complications None Follow Up Care/Instructions Patient Instructions None needed. Anesthesia/Patient Condition Patient Condition Patient is doing well, no complaints, stable vital signs, no apparent adverse anesthesia problems. No complications reported per nursing. NITISH HARRIS CRNA May 16, 2020 16:41
== END 2020-05-16 13:13 | disposition home or self-care (01) ==
LOC: SDC 08:35
PROVIDERS: ATTEND Surgery
DX: K43.0 Incisional hernia with obstruction, without gangrene (principal); F32.9 Major depressive disorder, single episode, unspecified; E66.01 Morbid (severe) obesity due to excess calories; Z68.42 Body mass index [BMI] 45.0-49.9, adult; F17.210 Nicotine dependence, cigarettes, uncomplicated; Z79.899 Other long term (current) drug therapy; Z80.41 Family history of malignant neoplasm of ovary; Z80.49 Family history of malignant neoplasm of other genital organs; Z83.3 Family history of diabetes mellitus
CPT/HCPCS: 49655; 84703; 87081; C1781

== ENCOUNTER → 2021-02-04 | Outpatient (CLI) | payer MEDICAID ==
[~2021-02-04] MED LIST changes: +CETI10TA49 PO; +HYDR-4226 PO; +OXYC1TAB87 PO; +SERT50TA2 PO
== END ==
LOC: RAD 11:30
PROVIDERS: ATTEND Obstetrics & Gynecology
DX: N94.12 Deep dyspareunia (principal)
CPT/HCPCS: 76830; 76856